=== PATIENT | female | born 1990 | race Caucasian/White ===

== ENCOUNTER 2023-10-31 09:30 | Inpatient (IN) | payer MEDICAID, SELFPAY ==
[2023-10-27] MEDS: Cefazolin 2 GM in 0.9% Normal Saline (100mL Bag) 100 ML IV (12:07)
--- NOTE | 2023-10-29 13:31 | PCM.HP.BLA ---
History and Physical Date of Admission: 10/31/23 Pre-Op History and Physical ? HPI: The patient is a 33 year old female presenting for pre-operative visit. She is scheduled for , for repeat cs on 10/31/23. Procedure discussed along with risks, benefits and complications. Other alternatives discussed for management. Consent form signed? Yes. ? ? PAST MEDICAL HISTORY PAST MEDICAL HISTORY Diagnosis Date ? Abnormal glandular Papanicolaou smear of cervix 2018 ? Anemia ? ? Chlamydia ? ? 2015 ? Depression/anxiety ? ? Fibrocystic breast ? ? H/O seasonal allergies ? ? History of anomaly in prior , currently 03/26/2023 ? Kidney cyst, acquired 03/05/2021 ? ? PAST SURGICAL HISTORY PAST SURGICAL HISTORY Procedure Laterality Date ? DELIVERY ONLY ? ? ? PAST SURGICAL HISTORY OF ? ? ? wisdom teeth ? ? ? CURRENT MEDICATIONS Current Outpatient Medications Medication Sig Dispense Refill ? pantoprazole DR (PROTONIX) 20 mg tablet Take 1 tablet by mouth once daily. 30 tablet 1 ? ondansetron orally disintegrating (ZOFRAN ODT) 4 mg disintegrating tablet Take 1 tablet by mouth every 8 hours as needed. 90 tablet 1 ? PNV [id number] 3.33 mg iron- 0.33 mg chew Take by mouth. ? ? ? cetirizine (ZYRTEC) 10 mg tablet Take 1 tablet by mouth once daily. ? ? ? fluticasone (FLONASE) 50 mcg/actuation nasal spray Use 2 Sprays in the nose. ? ? ? No current facility-administered medications for this visit. ? ? ALLERGIES: Patient has no known allergies. ? PERSONAL HISTORY: SOCIAL HISTORY Social History ? Tobacco Use ? Smoking status: Former ? ? Years: 10 ? ? Types: Cigarettes ? ? Quit date: 04/15/2018 ? ? Years since quittin.5 ? Smokeless tobacco: Never Vaping Use ? Vaping Use: Former ? Quit date: 08/14/2020 ? Substances: Nicotine Substance Use Topics ? Alcohol use: Not Currently ? ? Comment: rarely-none since 2019 ? Drug use: Never ? FAMILY HISTORY: FAMILY HISTORY FAMILY HISTORY Problem Relation Age of Onset ? No Known Problems Mother ? ? No Known Problems Father ? ? Kidney Disease Maternal Grandmother ? ? COPD Maternal Grandfather ? ? Hyperlipidemia Paternal Grandmother ? ? Hypertension Paternal Grandmother ? ? Hypertension Paternal Grandfather ? ? Hyperlipidemia Paternal Grandfather ? ? Alzheimer's Disease Paternal Grandfather ? ? Kidney Disease Daughter ? ? ? REVIEW OF SYMPTOMS: negative except as noted above PHYSICAL EXAMINATION: ? VITALS: Blood pressure 110/60, weight 183 lb (83 kg), last menstrual period 01/25/2023. ? GENERAL: The patient is well nourished, well hydrated in no acute distress. , The patient is oriented to time, place, and person. NECK: full range of motion Abd: gravid, non tender ? IMPRESSION: @ 39 weeks, repeat cs ? PLAN: Repeat cs ? Pt has been counseled on risks/benefits and alternatives of surgery including but not limited to anesthesia, bleeding, infection, injury to pelvic structures including bowel, bladder, ureters and vessels. Pt wishes to proceed with surgery at this time. Risk of transfusion reviewed ? Pre and post op instructions reviewed. ? I have reviewed and updated past medical and surgical history, medications and allergies Karishma Collins MD ?1:28 PM Routine Office Visit on 10/29/2023 Routine Office Visit on 10/29/2023 Note shared with patient
[2023-10-31] VITALS (18 sets, daily range): BP systolic 106–136; BP diastolic 73–96; PULSE 72–106; RESP 15–22; TEMP 36–36.7; O2SAT 95–99; BMI 28.0
--- OUTSIDE RECORDS SUMMARY | 2023-10-31 10:04 | XMS RPT_ITS | CCD ---
Author Name Unknown Address [id number] [place] [address] Organization [facility] Care Team Providers Care Md Urologist Name Role Phone Marylin Thompson Primary Care Provider [phone] Unavailable Primary Care Provider Unavailabl e Inc, [facility] Primary Care Provider Unav ailable Unavailable Primary Care Provider Unavailabl e LINNETTE DICKSON Attending Unavailable [facility], [facility] Primary [facility] Unavailable YONATAN SPARKS Attending Unavailable [facility] Primary Care Unavailable SAFLAUREN YONATAN Referring Unavailable [facility] Primary Care Unavailable SAFFELISET YONATAN Attending Unavailable [facility] Primary Care Unavailable LINNETTE DICKSON Attending Unavailable [facility] Primary Care Unavailable SAFYONATAN AGUILAR Attending Unavailable [facility] Primary Care Unavailable SAFFELISET YONATAN Attending Unavailable SERENA DICKSONA Attending Unavailable [facility] Primary Care Unavailable SHARON MCCORMICK Attending Unavailable PAGE RILEYRE Referring Unavail able FANNY REYNOLDS Referring Unavailable KARISHMA RILEY Attending Unavail able FANNY REYNOLDS Referring Unavailable WISWELL, SHELLEY Referring Unavailable WISWELL, SHELLEY Attending Unavailable WISWELL, SHELLEY Attending Unavailable PAGE RILEYRE Attending Unavail able FANNY REYNOLDS Attending Unavailable BISI MCGOWAN Attending Unavailable BISI MCGOWAN Referring Unavailable WISWELL, SHELLEY Attending Unavailable WISWELL, SHELLEY Referring Unavailable WISWELL, SHELLEY Referring Unavailable FANNY REYNOLDS Attending Unavailable SHARON MCCORMICK Attending Unavailable WISWELL, SHELLEY Attending Unavailable WISWELL, SHELLEY Referring Unavailable WISWELL, SHELLEY Referring Unavailable WISWELL, SHELLEY Referring Unavailable AZAM BUENO Attending Unavailable PAGE RILEYRE Attending Unavail able KIERAN RUCKER Attending Unavailable SHARON MCCORMICK Referring Unavailable FANNY REYNOLDS Attending Unavailable AZAM BUENO Attending Unavailable Medications Current Medications Medication Drug Class(es) Dates Sig (Normalized) Sig (Original) acetaminophen 325 mg oral tablet (1 source) Start: 04-11-2021 take 650 mg by mouth every six hours as needed for pain, then take 4000 mg by mouth every twenty-four hours as needed for pain 650 mg, Oral, EVERY 6 HOURS PRN, Pain Mild (1-3), Starting on Fri04/11/21 at 1512 Maximum dose of acetaminophen is 4000 mg from all sources in 24 hours. azelastine hydrochloride 0.5 mg/ml ophthalmic solution (2 sources) Histamine-1 Receptor Antagonist Start: 10-13-2017 take 1 drop(s) into the eye(s) twice daily azelastine (OPTIVAR) 0.05 % ophthalmic solution Place 1 drop into both eyes 2 times daily 1 Bottle 2 10/13/2017 Active 1 ml diphenhydrAMINE hydrochloride 50 mg/ml cartridge (4 sources) Histamine-1 Receptor Antagonist Start: 04-11-2021 25 mg, Intravenous, EVERY 6 HOURS PRN, Itching, Hives, Starting on Fri04/11/21 at 1512, Completed/Discontinued Medications Medication Drug Class(es) Dates Sig (Normalized) Sig (Original) acetaminophen 500 mg / diphenhydrAMINE hydrochloride 25 mg oral tablet (1 source) Histamine-1 Receptor Antagonist End: 04-13-2021 take 25-500 mg by mouth once daily as needed diphenhydrAMINE-AP AP, sleep, (TYLENOL PM EXTRA STRENGTH) 25-500 MG tablet Take 1 tablet by mouth nightly as needed for Sleep 0 04/13/2021 Discontinued (Stop Taking at Discharge) azithromycin (ZITHROMAX) 500 mg in dextrose 5 % 250 mL IVPB (add-vantage) (1 source) Start: 04-11-2021 End: 04-11-2021 azithromycin (ZITHROMAX) 500 mg in dextrose 5 % 250 mL IVPB (add-vantage) b complex vitamins capsule (2 sources) End: 03-26-2023 take 1 capsule by mouth once daily b complex vitamins capsule Take 1 capsule by mouth daily. 0 03/26/2023 Discontinued Problems Active Problems Problem Classification Problem Date Documented Da te Episodic/Chronic Anxiety disorders (2 sources) Anxiety disorder, unspecified; Translations: [Anxiety disorder, unspecified] Onset: 04-10-2023 Chronic Early or threatened labor (2 sources) Threatened premature labor - not delivered ; Translations: [False labor before 37 completed weeks of gestation, unspecified trimester] Onset: 04-11-2021 Resolved: 04-13-2021 Episodic Mood disorders (2 sources) Mood disorders; Translations: [Depression, unspecified] Onset: 04-10-2023 Other complications of (20 sources) ; Translations: [ with inconclusive viability, not applicable or unspecified] Onset: 04-28-2023 02-27-2023 Episodic Other complications of (15 sources) High risk ; Translations: [Supervision of high risk , unspecified, first trimester] Onset: 04-10-2023 03-26-2023 Episodic Other complications of (1 source) Nausea and vomiting; Translations: [Vomiting of , unspecified] 04-10-2023 Episodic Other complications of (1 source) Anxiety in ; Translations: [Other mental disorders complicating , unspecified trimester] 04-10-2023 Episodic Other complications of (1 source) Depressive disorder; Translations: [Other mental disorders complicating , first trimester] 04-10-2023 Episodic Other complications of (2 sources) Vomiting of , unspecified; Translations: [Vomiting of , unspecified] Onset: 04-10-2023 Episodic Other complications of (2 sources) Other mental disorders complicating , unspecified trimester; Translations: [Other mental disorders complicating , unspecified trimester] Onset: 04-10-2023 Episodic Other complications of (2 sources) Other mental disorders complicating , first trimester; Translations: [Other mental disorders complicating , first trimester] Onset: 04-10-2023 Episodic Other complications of (2 sources) Supervision of high risk , unspecified, first trimester; Translations: [Supervision of high risk , unspecified, first trimester] Onset: 04-10-2023 Episodic Other complications of (2 sources) with inconclusive viability, not applicable or unspecified; Translations: [ with inconclusive viability, not applicable or unspecified] Onset: 03-26-2023 Episodic Other complications of (4 sources) Poor growth affecting management; Translations: [Maternal care for other known or suspected poor growth, third trimester, not applicable or unspecified] Onset: 09-11-2023 09-11-2023 Episodic Other complications of (1 source) Supervision of high risk , unspecified, third trimester; Translations: [Supervision of high risk in third trimester] Onset: 09-29-2023 Episodic Other complications of (1 source) Maternal care for other known or suspected poor growth, third trimester, not applicable or unspecified; Translations: [Poor growth affecting management of mother in third trimester, single or unspecified fetus] Onset: 09-11-2023 Episodic Other complications of (1 source) Maternal care for other known or suspected poor growth, unspecified trimester, not applicable or unspecified; Translations: [ affected by intrauterine growth restriction (IUGR)] Onset: 09-23-2023 Episodic Other complications of (1 source) Supervision of high risk , unspecified, unspecified trimester; Translations: [Supervision provided for high risk with history of previous delivery] Onset: 09-23-2023 Episodic Other complications of (1 source) Supervision of high risk , unspecified, second trimester; Translations: [Supervision of high risk in second trimester] Onset: 08-12-2023 Episodic Other female genital disorders (2 sources) H/O: premature delivery; Translations: [Personal history of pre-term labor] 04-30-2023 Episodic Other female genital disorders (1 source) Personal history of pre-term labor; Translations: [History of delivery] Onset: 09-11-2023 Episodic Other screening for suspected conditions (not mental disorders or infectious disease) (1 source) Finding related to ; Translations: [Encounter for suspected problem with growth ruled out] 10-27-2023 Episodic Other upper respiratory disease (14 sources) Seasonal allergy; Translations: [Other seasonal allergic rhinitis] Onset: 10-16-2016 10-16-2016 Chronic Residual codes; unclassified (1 source) Gestation period, 8 weeks; Translations: [8 weeks gestation of ] 03-26-2023 Episodic Residual codes; unclassified (3 sources) Gestation period, 10 weeks; Translations: [10 weeks gestation of ] Onset: 04-10-2023 04-10-2023 Episodic Residual codes; unclassified (1 source) Gestation period, 13 weeks; Translations: [13 weeks gestation of ] 04-30-2023 Episodic Residual codes; unclassified (3 sources) History of uterine scar from previous surgery; Translations: [History of uterine scar from previous surgery] Onset: 03-26-2023 Episodic Residual codes; unclassified (1 source) 10 weeks gestation of ; Translations: [10 weeks gestation of ] Onset: 04-10-2023 Episodic Residual codes; unclassified (1 source) Gestation period, 17 weeks; Translations: [17 weeks gestation of ] 05-28-2023 Episodic Residual codes; unclassified (1 source) Gestation period, 22 weeks; Translations: [22 weeks gestation of ] 07-01-2023 Episodic Residual codes; unclassified (1 source) Gestation period, 26 weeks; Translations: [26 weeks gestation of ] 07-29-2023 Episodic Residual codes; unclassified (1 source) Gestation period, 30 weeks; Translations: [30 weeks gestation of ] 08-28-2023 Episodic Residual codes; unclassified (1 source) Gestation period, 38 weeks; Translations: [38 weeks gestation of ] 10-20-2023 Episodic Residual codes; unclassified (2 sources) Gestation period, 39 weeks; Translations: [39 weeks gestation of ] 10-27-2023 Episodic Residual codes; unclassified (1 source) 32 weeks gestation of ; Translations: [32 weeks gestation of ] Onset: 09-29-2023 Episodic Residual codes; unclassified (1 source) 34 weeks gestation of ; Translations: [34 weeks gestation of ] Onset: 09-23-2023 Episodic Residual codes; unclassified (1 source) 22 weeks gestation of ; Translations: [22 weeks gestation of ] Onset: 09-11-2023 Episodic Residual codes; unclassified (1 source) 26 weeks gestation of ; Translations: [26 weeks gestation of ] Onset: 08-12-2023 Episodic Past or Other Problems Problem Classification Problem Date Documented Da te Episodic/Chronic Other complications of ; puerperium affecting management of mother (11 sources) Suspected disorder; Translations: [Maternal care for (suspected) abnormality and damage, unspecified, not applicable or unspecified] Onset: 02-01-2021 Resolved: 03-26-2023 03-26-2023 Episodic Other complications of (20 sources) Supervision of with other poor reproductive or obstetric history, unspecified trimester; Translations: [ with other poor obstetric history] Onset: 03-26-2023 02-27-2023 Episodic Other complications of (1 source) Supervision of with history of pre-term labor, second trimester; Translations: [Previous delivery in second trimester, antepartum] Onset: 07-01-2023 Episodic Other diseases of kidney and ureters (18 sources) Acquired renal cystic disease; Translations: [Cyst of kidney, acquired] Onset: 03-05-2021 04-28-2023 Episodic Other and delivery including normal (3 sources) Normal ; Translations: [Encounter for supervision of other normal , unspecified trimester] Onset: 06-10-2023 04-30-2023 Episodic Screening and history of mental health and substance abuse codes (19 sources) H/O: depression; Translations: [Personal history of other mental and behavioral disorders] Onset: 04-28-2023 04-28-2023 Episodic Results Test Name Value Interpretation Reference Range Facil ity Vital Signs Date Time Vital Sign Value Performing Clinician Facility 10-29-2023 11:42-0500 Body weight 83.01 kg Karishma Tompkins MD Work Phone: [facility] 10-29-2023 11:42-0500 Diastolic blood pressure 60 mm[Hg] Karishma Tompkins MD Work Phone: [facility] 10-29-2023 11:42-0500 Systolic blood pressure 110 mm[Hg] Karishma Tompkins MD Work Phone: [facility] 10-20-2023 10:52-0500 Body weight 82.56 kg Shelley Akhtar MD Work Phone: [facility] 10-20-2023 10:52-0500 Diastolic blood pressure 81 mm[Hg] Shelley Akhtar MD Work Phone: [facility] 10-20-2023 10:52-0500 Systolic blood pressure 115 mm[Hg] Shelley Akhtar MD Work Phone: [facility] 08-28-2023 10:33-0500 Body weight 81.56 kg Sharon Plotts DROP MACHINE OPERATOR.CNM Work Phone: [facility] 08-28-2023 10:33-0500 Diastolic blood pressure 68 mm[Hg] Sharon Plotts DROP MACHINE OPERATOR.CNM Work Phone: [facility] 08-28-2023 10:33-0500 Systolic blood pressure 116 mm[Hg] Sharon Plotts DROP MACHINE OPERATOR.CNM Work Phone: [facility] 07-29-2023 13:04-0500 Body weight 78.02 kg Bisi Mcgowan DROP MACHINE OPERATOR.CNM Work Phone: [facility] 07-29-2023 13:04-0500 Diastolic blood pressure 72 mm[Hg] Bisi Mcgowan DROP MACHINE OPERATOR.CNM Work Phone: [facility] 07-29-2023 13:04-0500 Systolic blood pressure 120 mm[Hg] Bisi Mcgowan DROP MACHINE OPERATOR.CNM Work Phone: [facility] 05-28-2023 14:13-0400 Body weight 73.03 kg Karishma Tompkins MD Work Phone: [facility] 05-28-2023 14:13-0400 Diastolic blood pressure 60 mm[Hg] Karishma Tompkins MD Work Phone: [facility] 05-28-2023 14:13-0400 Systolic blood pressure 100 mm[Hg] Karishma Tompkins MD Work Phone: [facility] 04-30-2023 13:13-0400 Body height 172.7 cm Sharon Jessicahuma DROP MACHINE OPERATOR.CNM Work Phone: [facility] 04-30-2023 13:13-0400 Body weight 71.22 kg Sharon Jessicahuma DROP MACHINE OPERATOR.CNM Work Phone: [facility] 04-30-2023 13:13-0400 Diastolic blood pressure 72 mm[Hg] Sharon Mccormick DROP MACHINE OPERATOR.CNM Work Phone: [facility] 04-30-2023 13:13-0400 Systolic blood pressure 106 mm[Hg] Sharon Mccormick DROP MACHINE OPERATOR.CNM Work Phone: [facility] 04-10-2023 09:09-0400 Body mass index (BMI) [Ratio] 24.48 kg/m2 Linnette Newport PA Work Phone: [facility] [employer] 04-10-2023 09:09-0400 Body weight 73.03 kg Linnette Newport PA Work Phone: [facility] 04-10-2023 09:09-0400 Diastolic blood pressure 79 mm[Hg] Linnette Newport PA Work Phone: [facility] 04-10-2023 09:09-0400 Heart rate 104 /min Linnette Newport PA Work Phone: [facility] 04-10-2023 09:09-0400 Systolic blood pressure 125 mm[Hg] Linnette Newport PA Work Phone: [facility] [employer] 03-26-2023 15:10-0400 Body mass index (BMI) [Ratio] 24.54 kg/m2 Yonatan Saffell DROP MACHINE OPERATOR - SENIOR [employer]IS[employer] NETWORK ENGINEER Work Phone: [facility] [employer] 03-26-2023 15:10-0400 Body temperature 97.11 [degF] Yonatan Saffell DROP MACHINE OPERATOR - SENIOR [employer]IS[employer] NETWORK ENGINEER Work Phone: [facility] [employer] 03-26-2023 15:10-0400 Body weight 73.21 kg Yonatan Saffell DROP MACHINE OPERATOR - SENIOR [employer]IS[employer] NETWORK ENGINEER Work Phone: [facility] [employer] 03-26-2023 15:10-0400 Diastolic blood pressure 79 mm[Hg] Yonatan Saffell DROP MACHINE OPERATOR - SENIOR [employer]IS[employer] NETWORK ENGINEER Work Phone: [facility] [employer] 03-26-2023 15:10-0400 Heart rate 84 /min Yonatan Saffell DROP MACHINE OPERATOR - SENIOR [employer]IS[employer] NETWORK ENGINEER Work Phone: [facility] [employer] 03-26-2023 15:10-0400 Systolic blood pressure 115 mm[Hg] Yonatan Sparks DROP MACHINE OPERATOR - SENIOR CISCO NETWORK ENGINEER Work Phone: [employer] 02-27-2023 12:06-0400 Body mass index (BMI) [Ratio] 25.24 kg/m2 Yonatanngoc Sparks DROP MACHINE OPERATOR - SENIOR CISCO NETWORK ENGINEER Work Phone: [employer] 02-27-2023 12:06-0400 Body weight 75.3 kg Yonatan Sparks DROP MACHINE OPERATOR - SENIOR CISCO NETWORK ENGINEER Work Phone: [employer] 02-27-2023 12:06-0400 Diastolic blood pressure 66 mm[Hg] Yonatan Sparks DROP MACHINE OPERATOR - SENIOR CISCO NETWORK ENGINEER Work Phone: [employer] 02-27-2023 12:06-0400 Heart rate 83 /min Yonatan Sparks DROP MACHINE OPERATOR - SENIOR CISCO NETWORK ENGINEER Work Phone: [employer] 02-27-2023 12:06-0400 Systolic blood pressure 115 mm[Hg] Yonatan Sparks DROP MACHINE OPERATOR - SENIOR CISCO NETWORK ENGINEER Work Phone: [facility] [employer] 04-13-2021 08:03-0400 Body temperature 97.5 [degF] Magalis Briggs MD Work Phone: [facility] Work Phone: 04-13-2021 08:03-0400 Diastolic blood pressure 81 mm[Hg] Magalis Briggs MD Work Phone: [facility] Work Phone: 04-13-2021 08:03-0400 Heart rate 89 /min Magalis Briggs MD Work Phone: [facility] Work Phone: 04-13-2021 08:03-0400 Respiratory rate 16 /min Magalis Briggs MD Work Phone: [facility] Work Phone: 04-13-2021 08:03-0400 SaO2% (BldA) [Mass fraction] 98 % Magalis Briggs MD Work Phone: [facility] Work Phone: 04-13-2021 08:03-0400 Systolic blood pressure 125 mm[Hg] Magalis Briggs MD Work Phone: [facility] Work Phone: 04-10-2021 23:51-0400 Body height 172.7 cm Magalis Briggs MD Work Phone: [facility] Work Phone: 04-10-2021 23:51-0400 Body mass index (BMI) [Ratio] 29.04 kg/m2 Magalis Briggs MD Work Phone: [facility] Work Phone: 04-10-2021 23:51-0400 Body weight 86.64 kg Magalis Briggs MD Work Phone: [facility] Work Phone: 03-28-2021 22:01-0400 Diastolic blood pressure 89 mm[Hg] Maura Massey MD Work Phone: [facility] Work Phone: 03-28-2021 22:01-0400 Heart rate 67 /min Maura Massey MD Work Phone: [facility] Work Phone: 03-28-2021 22:01-0400 Respiratory rate 16 /min Maura Massey MD Work Phone: [facility] Work Phone: 03-28-2021 22:01-0400 Systolic blood pressure 133 mm[Hg] Maura Massey MD Work Phone: [facility] Work Phone: 03-28-2021 21:06-0400 Body height 172.7 cm Maura Massey MD Work Phone: [facility] Work Phone: 03-28-2021 21:06-0400 Body mass index (BMI) [Ratio] 28.59 kg/m2 Maura Massey MD Work Phone: [facility] Work Phone: 03-28-2021 21:06-0400 Body weight 85.28 kg Maura Massey MD Work Phone: [facility] Work Phone: 0 21:02-0400 Body temperature 97.81 [degF] Maura Massey MD Work Phone: [facility] Work Phone: Encounters Encounter Date Encounter Type Care Provider Facility Start: 10-29-2023 End: 10-29-2023 ambulatory KARISHMA TOMPKINS Facility:[facility] Start: 10-29-2023 End: 10-29-2023 Patient encounter procedure Karishma Tompkins MD Work Phone: OB/Gynecology Procedures Date Procedure Procedure Detail Performing Clinician Start: 10-29-2023 URINE OB DIP B/O Karishma Tompkins MD Work Phone: Start: 10-27-2023 biophysical profile non-stress testing Shelley Akhtar MD Work Phone: Start: 10-20-2023 URINE OB DIP B/O Shelley Akhtar MD Work Phone: Start: 08-28-2023 URINE OB DIP B/O Sharon Mccormick DROP MACHINE OPERATOR.CNM Work Phone: Start: 07-29-2023 URINE OB DIP B/O Bisi Mcgowan DROP MACHINE OPERATOR.CNM Work Phone: Start: 07-01-2023 Us preg uterus after 1st trimest 09/15 gestation Fanny Reynolds MD Work Phone: Start: 05-28-2023 URINE OB DIP B/O Karishma Tompkins MD Work Phone: Start: 04-10-2023 Antibody screen Nurse Wstr Work Phone: Start: 04-10-2023 CBC panel - Blood by Automated count [facility] Provider Start: 04-10-2023 GONORRHEA/CHLAMYDIA NAAT [facility] Provider Start: 04-10-2023 HEP ACUTE PANEL BL [facility] Provider Start: 04-10-2023 HEP B SURF AG SCRN [facility] Provider Start: 04-10-2023 HIV COMBO (AC) [facility] Provider Start: 04-10-2023 RPR SCREEN [facility] Provider Start: 04-10-2023 TYPE + SCREEN (EXTERNAL LAB) [facility] Provider Start: 04-10-2023 Antibody screen rbc each serum technique Linnette CHAPARRO Work Phone: Start: 04-10-2023 Hemoglobin fractj/quantj electrophoresis Linnette CHAPARRO Work Phone: Start: 04-10-2023 Iaad ia hepatitis b surface antigen Linnette CHAPARRO Work Phone: Start: 04-10-2023 MISCELLANEOUS SENDOUT TEST Linnette CHAPARRO Work Phone: Start: 04-10-2023 Urnls dip stick/tablet rgnt non-auto w/o micrscp Linnette CHAPARRO Work Phone: Start: 03-26-2023 H/O: section History of delivery Yonatan Sparks DROP MACHINE OPERATOR - SENIOR [employer]IS[employer] NETWORK ENGINEER Work Phone: Start: 03-03-2023 Gonadotropin chorionic quantitative Yonatan Saffell DROP MACHINE OPERATOR - SENIOR [employer]IS[employer] NETWORK ENGINEER Work Phone: Start: 02-27-2023 Gonadotropin chorionic quantitative Yonatan Saffell DROP MACHINE OPERATOR - SENIOR [employer]IS[employer] NETWORK ENGINEER Work Phone: Start: 12-12-2021 Microscopic observation [Identifier] in Cervix by Cyto stain Yonatan Saffell DROP MACHINE OPERATOR - SENIOR [employer]IS[employer] NETWORK ENGINEER Work Phone: Start: 04-12-2021 Blood count hemoglobin Linnette T Merlyn DO Work Phone: Start: 04-11-2021 RADIOLOGY REPORT 3m Scanning Start: 04-11-2021 Us preg uterus after 1st trimest 09/15 gestation Harpreet Marinelli DO Work Phone: Start: 04-11-2021 Antibody screen Magalis Briggs MD Work Phone: Start: 04-11-2021 Culture bacterial quanttative colony count urine Jill Multani DO Work Phone: Start: 04-11-2021 Blood count complete automated Jill Multani DO Work Phone: Start: 04-11-2021 Blood typing serologic abo Jill coyne DO Work Phone: Start: 11-08-2020 ABO, EXTERNAL RESULT Historical Provider Start: 11-08-2020 HEPATITIS B, EXTERNAL RESULT Historical Provider Start: 11-08-2020 RH FACTOR, EXTERNAL RESULT Historical Pr ovider Start: 11-08-2020 RPR, EXTERNAL RESULT Historical Provider Start: 11-08-2020 RUBELLA TITER, EXTERNAL RESULT Historical Provider Start: 10-11-2020 C. TRACHOMATIS, EXTERNAL RESULT Historical Provider Start: 10-11-2020 HIV, EXTERNAL RESULT Historical Provider Start: 10-11-2020 N. GONORRHOEAE, EXTERNAL RESULT Historical Provider Start: 03-14-2020 Glucose quantitative blood xcpt reagent strip Unknown Provider Result H/O: section Status post C-secti on Magalis Briggs MD Work Phone: H/O: section History of delivery Linnette CHAPARRO Work Phone: H/O: section History of section Shelley Akhtar MD Work Phone: Plan of Treatment Date Care Activity Detail Author Start: 2042 Zoster Vaccines (1 of 2) Zoster Vaccines (1 of 2) [facility] [employer] Start: 08-12-2033 Urine microalbumin profile DTaP,Tdap,Td Vaccine (3 - Td or Tdap) [facility] Start: 04-13-2031 DTaP/Tdap/Td vaccine (2 - Td or Tdap) DTaP/Tdap/Td vaccine (2 - Td or Tdap) [facility] Work Phone: Start: 04-13-2031 DTaP/Tdap/Td Vaccines (2 - Td or Tdap) DTaP/Tdap/Td Vaccines (2 - Td or Tdap) [facility] [employer] Start: 04-13-2031 Urine microalbumin profile DTaP,Tdap,Td Vaccine (2 - Td or Tdap) [facility] Start: 12-12-2024 Screening for malignant neoplasm of cervix [facility] Start: 09-15-2023 Depression Assessment Depression Assessment [facility] Start: 07-29-2023 End: 10-28-2023 CBC W Auto Differential panel - Blood CBC + DIFF Lab Routine 26 weeks gestation of Supervision of high risk in second trimester Expected: 07/29/2023, Expires: 10/28/2023 [facility] Work Phone: Immunizations Immunization Date Immunization Notes Care Provider Fa cility 10-02-2023 respiratory syncytia l virus (RSV) vaccine, bivalent (ABRYSVO) Karishma Tompkins MD Work Phone: [facility] 08-12-2023 tetanus toxoid, reduced diphtheria toxoid, and acellular pertussis vaccine, adsorbed [employer]rier Shop Supervisor RN [facility] 08-03-2022 Influenza, injectable, Madin Angela Canine Kidney, preservative free, quadrivalent Karishma Tompkins MD Work Phone: [facility] Work Phone: 08-03-2022 influenza virus vaccine, unspecified formulation Yonatanngoc Hoffmannlauren BUCK [facility] Work Phone: [facility] 04-13-2021 tetanus toxoid, reduced diphtheria toxoid, and acellular pertussis vaccine, adsorbed Magalis Briggs MD Work Phone: [facility] NEGATED: Highlighted row has not occurred!04-13-2021 measles, mumps and rubella virus vaccine Magalis Briggs MD Work Phone: [facility] Work Phone: Payers Date Payer Category Payer Unknown [employer] [id number] 2023-Present [address] [place] [address] Exchange Plan [id number] 2021 Medicaid [id number] 2021 Medicaid [id number] 2016 Medicaid [employer] [place] [employer] [place] xxxxxxxxxxx 2016-Present [phone] [address] [place] [address] xxxxxxxxxxx [id number] 2016 Medicaid [employer] [place] [employer] [place] [id number] 2016-Present [phone] [address] [place] [address] [id number] Social History Date Type Detail Facility Start: 11-11-2016 End: 04-28-2023 Tobacco smoking status NHIS Former smoker [place], [place] End: 08-28-2020 History of tobacco use Current [place]oker [place] Start: 11-11-2016 Alcohol intake Current non-dr assistant to the director of alcohol (finding) [place], [place] Start: 1990 Sex Assigned At Not on file M [place] Start: 03-28-2021 End: 04-28-2023 Tobacco use and exposure Never used [facility] Start: 03-28-2021 End: 10-14-2023 Alcohol intake Ex-drinker (finding) [employer] Work Phone: Start: 08-25-2020 [employer] Work Phone: Start: 02-17-2023 End: 04-10-2023 Exposure to SARS-CoV-2 (event) Not sure [employer] Start: 04-11-2021 Alcohol intake Lifetime non-d mu (finding) [employer] Work Phone: Start: 04-11-2021 History SDOH Alcohol Frequency 1 [employer] Work Phone: End: 08-28-2020 History of tobacco use Cigarette Smoker [facility] Start: 02-27-2023 End: 10-14-2023 History of Social function [facility] Start: 02-27-2023 End: 10-14-2023 Tobacco use panel [facility] Start: 04-28-2023 Education 13 [facility] Start: 04-28-2023 Alcohol Comment rarely-none since [facility] Goals Date Patient Goal Desired Activity /State Personal health goal Clinical Notes 10-14-2020 to 10-29-2023 Karishma Riley MD - 10/29/2023 1:26 PM ESTPrenatal Quick Notes - Karishma Riley MD - 10/29/2023 1:25 PM ESTPatient InstructionsPatient InstructionsPatient Instructions Note Date & Type Note Facility 10-29-2023 History and physical note Pre-Op History and Physical HPI: The patient is a 33 year old female presenting for pre-operative visit. She is scheduled for , for repeat cs on 10/31/23. Procedure discussed along with risks, benefits and complications. Other alternatives discussed for management. Consent form signed? Yes. PAST MEDICAL HISTORY Diagnosis Date Abnormal glandular Papanicolaou smear of cervix 2019 Anemia Chlamydia 2015 Depression/anxiety Fibrocystic breast H/O seasonal allergies History of anomaly in prior , currently 03/26/2023 Kidney cyst, acquired 03/05/2021 PAST SURGICAL HISTORY Procedure Laterality Date DELIVERY ONLY PAST SURGICAL HISTORY OF wisdom teeth Current Outpatient Medications Medication Sig Dispense Refill pantoprazole DR (PROTONIX) 20 mg tablet Take 1 tablet by mouth once daily. 30 tablet 1 ondansetron orally disintegrating (ZOFRAN ODT) 4 mg disintegrating tablet Take 1 tablet by mouth every 8 hours as needed. 90 tablet 1 PNV [id number]-TV-[id number]-2x-odb-epa 3.33 mg iron- 0.33 mg chew Take by mouth. cetirizine (ZYRTEC) 10 mg tablet Take 1 tablet by mouth once daily. fluticasone (FLONASE) 50 mcg/actuation nasal spray Use 2 Sprays in the nose. No current facility-administered medications for this visit. ALLERGIES: Patient has no known allergies. PERSONAL HISTORY: Social History Tobacco Use Smoking status: Former Years: 10 Types: Cigarettes Quit date: 04/15/2018 Years since quittin.5 Smokeless tobacco: Never Vaping Use Vaping Use: Former Quit date: 08/14/2020 Substances: Nicotine Substance Use Topics Alcohol use: Not Currently Comment: rarely-none since 2019 Drug use: Never FAMILY HISTORY: FAMILY HISTORY Problem Relation Age of Onset No Known Problems Mother No Known Problems Father Kidney Disease Maternal Grandmother COPD Maternal Grandfather Hyperlipidemia Paternal Grandmother Hypertension Paternal Grandmother Hypertension Paternal Grandfather Hyperlipidemia Paternal Grandfather Alzheimer's Disease Paternal Grandfather Kidney Disease Daughter REVIEW OF SYMPTOMS: negative except as noted above PHYSICAL EXAMINATION: VITALS: Blood pressure 110/60, weight 183 lb (83 kg), last menstrual period 01/25/2023. GENERAL: The patient is well nourished, well hydrated in no acute distress. , The patient is oriented to time, place, and person. NECK: full range of motion Abd: gravid, non tender IMPRESSION: @ 39 weeks, repeat cs PLAN: Repeat cs Pt has been counseled on risks/benefits and alternatives of surgery including but not limited to anesthesia, bleeding, infection, injury to pelvic structures including bowel, bladder, ureters and vessels. Pt wishes to proceed with surgery at this time. Risk of transfusion reviewed Pre and post op instructions reviewed. I have reviewed and updated past medical and surgical history, medications and allergies Karishma Tompkins MD documented in this encounter [facility] 10-29-2023 Miscellaneous Notes DM-Pt doing well. Denies vaginal Bleeding, Leaking fluid, or regular Contractions. Pt reports good movement Physical Exam: Gen: female in no apparent distress Abd: soft, Gravid. Non tender to palpation. See flow sheet A/P: @ 39.4 weeks 1) Cs pre op done today 2) Kick counts reviewed Karishma Mina MD documented in this encounter [facility] 10-29-2023 Instructions Marcy Morgan Ma 10/29/2023 11:43 AM EST SEQUENTIAL SCREENINGS The [facility] offers sequential screenings for women who are interested in screenings for chromosomal abnormalities and certain defects during a . The sequential screen combines ultrasound and blood tests to determine the risk of chromosomal abnormalities, including Down's Syndrome (Trisomy 21) and Trisomy 18, as well as open neural tube defects including spina bifida. Ultrasound examination is performed between 11 weeks and 13 weeks gestational age. Blood tests are drawn after the ultrasound and again later in the between 15 and 21 weeks gestational age. Please let your physician know if you are interested in this testing. It will require an appointment with our marine technician. This is not an ultrasound performed by a physician in our office during a routine visit. SIGNS AND SYMPTOMS OF LABOR 1. Contractions every 10 minutes or more often 2. Clear, pink, or brownish fluid (water) leaking from vagina 3. Feeling that baby is pushing down, pressure 4. Low, dull backache 5. Cramps that feel like a period 6. Cramps with or without diarrhea If you notice any of the above symptoms, contact our office at [phone] and ask to speak with a nurse. After hours, you can call doctors registry at [phone] OR call [facility] at [phone] and ask to have the doctor security professionals paged. If you consider this an emergency, dial 3-0-4 or go to your nearest emergency department. NEED HELP? Are you dealing with a violent or abusive relationship? Are you a victim of rape or sexual assult? Call [facility] ([place]) 24 hour Crisis Hotline: 283.291.6222 or 442-109-9154. MANUAL Your Guide to a Healthy manual is now on-line. Visit [email or web address] to download your free copy documented in this encounter [facility] 10-24-2023 Miscellaneous Notes SW- Pt doing well. No ctx, vb, lof. Good FM PE: Gen- NAD, well appearing Abd- Soft, gravid, NT See flowsheet A/p 38 wk gestation - MOD: Plans TOLAC if spont labor - SGA previously but now growth AGA. Has follow up growth scheduled for next week Shelley Akhtar DO documented in this encounter [facility] 10-20-2023 Instructions Eddie Boyd Marcy - 10/20/2023 10:49 AM EST SEQUENTIAL SCREENINGS The [facility] offers sequential screenings for women who are interested in screenings for chromosomal abnormalities and certain defects during a . The sequential screen combines ultrasound and blood tests to determine the risk of chromosomal abnormalities, including Down's Syndrome (Trisomy 21) and Trisomy 18, as well as open neural tube defects including spina bifida. Ultrasound examination is performed between 11 weeks and 13 weeks gestational age. Blood tests are drawn after the ultrasound and again later in the between 15 and 21 weeks gestational age. Please let your physician know if you are interested in this testing. It will require an appointment with our marine technician. This is not an ultrasound performed by a physician in our office during a routine visit. SIGNS AND SYMPTOMS OF LABOR 1. Contractions every 10 minutes or more often 2. Clear, pink, or brownish fluid (water) leaking from vagina 3. Feeling that baby is pushing down, pressure 4. Low, dull backache 5. Cramps that feel like a period 6. Cramps with or without diarrhea If you notice any of the above symptoms, contact our office at [phone] and ask to speak with a nurse. After hours, you can call doctors registry at [phone] OR call [facility] at [phone] and ask to have the doctor security professionals paged. If you consider this an emergency, dial 9-1-1 or go to your nearest emergency department. NEED HELP? Are you dealing with a violent or abusive relationship? Are you a victim of rape or sexual assult? Call [facility] ([place]) 24 hour Crisis Hotline: 567.506.6651 or 655-010-3828. MANUAL Your Guide to a Healthy manual is now on-line. Visit [email or web address] to download your free copy documented in this encounter [facility] 10-02-2023 Note HNO ID: [id number] Author: SHELLEY AKHTAR MD Service: ? Author Type: Physician Type: Progress Notes Filed: 10/02/2023 16:31 Note Text: NST SUMMARY PROVIDER ASSESSMENT AND INTERPRETATION Mauro Ba is a 33 year old female, , who is at 35w5d with an DELBERT of 11/01/2023, by Last Menstrual Period dating method. Indications for NST: IUGR Baseline: 135 Variability: Moderate Accelerations: Present 15 X 15 Decelerations: None Contractions: TOCO: None Interpretation: Reactive SIGNATURE: Shelley Akhtar DO [facility] 09-12-2023 Note HNO ID: [id number] Author: Bisi Mcgowan APRN.CNM Service: ? Author Type: Weaver Hand Type: Progress Notes Filed: 09/12/2023 2:20 PM Note Text: [facility] 08-28-2023 Miscellaneous Notes S: Mauro Ba is a 33 year old female who presents at 30.5 weeks gestation for a routine visit. Positive movement. Denies headache, visual changes, chest pain, shortness of breath, vaginal bleeding, leakage of fluid, or dysuria. Feeling well, no complaints. O: See flow sheet Gen: No apparent distress Abd: Gravid, non tender S=D ASSESSMENT/PLAN: 1. Supervision of high risk in third trimester - ICD9: V23.9, ICD10: O09.93 (primary diagnosis) 2. 30 weeks gestation of - ICD9: V22.2, ICD10: Z3A.30 3. Previous delivery by section - Growth US at next visit - Desires physiological onset of labor and TOLAC but agrees to schedule repeat C/S at 40 weeks gestation 1) PTL precautions reviewed and when to call 2) RTO 2 weeks Sharon Mccormick APRN.CNM documented in this encounter [facility] 08-28-2023 Tavo Us Cma, Shekhar - 08/28/2023 10:29 AM EST SEQUENTIAL SCREENINGS The [facility] offers sequential screenings for women who are interested in screenings for chromosomal abnormalities and certain defects during a . The sequential screen combines ultrasound and blood tests to determine the risk of chromosomal abnormalities, including Down's Syndrome (Trisomy 21) and Trisomy 18, as well as open neural tube defects including spina bifida. Ultrasound examination is performed between 11 weeks and 13 weeks gestational age. Blood tests are drawn after the ultrasound and again later in the between 15 and 21 weeks gestational age. Please let your physician know if you are interested in this testing. It will require an appointment with our marine technician. This is not an ultrasound performed by a physician in our office during a routine visit. SIGNS AND SYMPTOMS OF LABOR 1. Contractions every 10 minutes or more often 2. Clear, pink, or brownish fluid (water) leaking from vagina 3. Feeling that baby is pushing down, pressure 4. Low, dull backache 5. Cramps that feel like a period 6. Cramps with or without diarrhea If you notice any of the above symptoms, contact our office at [phone] and ask to speak with a nurse. After hours, you can call doctors registry at [phone] OR call [facility] at [phone] and ask to have the doctor security professionals paged. If you consider this an emergency, dial 9-1-1 or go to your nearest emergency department. NEED HELP? Are you dealing with a violent or abusive relationship? Are you a victim of rape or sexual assult? Call [facility] ([place]) 24 hour Crisis Hotline: 399.632.6396 or 293-305-5894. MANUAL Your Guide to a Healthy manual is now on-line. Visit [email or web address] to download your free copy documented in this encounter [facility] 08-13-2023 Miscellaneous Notes 3rd risk assessment form submitted 08/13/23 Mel Cuevas RN documented in this encounter [facility] 08-12-2023 Note HNO ID: [id number] Author: Mayuri Fields Ma Service: ? Author Type: ? Type: Progress Notes Filed: 08/12/2023 12:45 PM Note Text: Patient identified by name and date of . Mauro Ba presents today for a vaccination of Tdap. Patient denies an allergy to latex: yes Patient denies a severe (life-threatening) allergy to a previous dose of Tdap, DTP, DTaP, DT or Td vaccine. Yes Patient denies history of epilepsy or neurological problems: Yes Patient is afebrile and denies being moderately or severely ill: Yes Patient denies history of Guillain-[place] Syndrome (a severe paralytic illness): Yes Tdap Adacel injection was given without incident. See immunizations for details of immunizations administered today. VIS sheet provided: Yes Provider Fanny Reynolds MD was present in office at time of injection. [facility] 07-29-2023 Instructions Bisi Mcgowan APRN.ZAINAM - 07/29/2023 1:05 PM EST SEQUENTIAL SCREENINGS The [facility] offers sequential screenings for women who are interested in screenings for chromosomal abnormalities and certain defects during a . The sequential screen combines ultrasound and blood tests to determine the risk of chromosomal abnormalities, including Down's Syndrome (Trisomy 21) and Trisomy 18, as well as open neural tube defects including spina bifida. Ultrasound examination is performed between 11 weeks and 13 weeks gestational age. Blood tests are drawn after the ultrasound and again later in the between 15 and 21 weeks gestational age. Please let your physician know if you are interested in this testing. It will require an appointment with our marine technician. This is not an ultrasound performed by a physician in our office during a routine visit. SIGNS AND SYMPTOMS OF LABOR 1. Contractions every 10 minutes or more often 2. Clear, pink, or brownish fluid (water) leaking from vagina 3. Feeling that baby is pushing down, pressure 4. Low, dull backache 5. Cramps that feel like a period 6. Cramps with or without diarrhea If you notice any of the above symptoms, contact our office at [phone] and ask to speak with a nurse. After hours, you can call doctors registry at [phone] OR call [facility] at [phone] and ask to have the doctor security professionals paged. If you consider this an emergency, dial 91-4 or go to your nearest emergency department. NEED HELP? Are you dealing with a violent or abusive relationship? Are you a victim of rape or sexual assult? Call [facility] ([place]) 24 hour Crisis Hotline: 812.867.1650 or 457-928-2149. MANUAL Your Guide to a Healthy manual is now on-line. Visit [email or web address] to download your free copy 1 HOUR GLUCOLA TEST PREPARATION, EXPLANATION & INSTRUCTIONS The test is performed to detect gestational diabetes mellitus. Some women, when they become , will develop this condition. If left untreated or undetected, diabetes may lead to problems with both your health and your baby's. All OB patients must have the 1 hour Glucola testing between 24 and 28 weeks. Patient is permitted to eat 2 hours prior to Glucola testing. Patient is to arrive at her appointment prepared to drink 50gms of glucose beverage. Blood will be drawn 1 hour after Glucola is consumed. No food, candy, gum, beverages or water may be consumed during the test. No smoking during testing!! Testing is complete after blood is drawn. documented in this encounter [facility] 07-29-2023 Miscellaneous Notes JOVANI-S: Mauro Ba is a 33 year old female who presents at 26w3d with DELBERT:11/01/2023, by Last Menstrual Period for a routine visit. Good FM. Denies headache, chest pain, vaginal bleeding, leakage of fluid, or dysuria. Feeling well. For past 2 weeks, some blurred vision bilaterally when first arising from bed in am. Denies tinnitus, right upper quadrant pain, no facial nor extremity swelling. O: See flow sheet Gen: No apparent distress Abd: Gravid, nontender ASSESSMENT/PLAN: 1. 26 weeks gestation of 2. Supervision of high risk in second trimester 3. History of anomaly in prior , currently 4. with history of section, antepartum 5. History of depression - ICD9: V11.8, ICD10: Z86.59 No history of depression. Will do depression screening next visit P: 1) PTL precautions reviewed and when to call 2) RTO in 2 weeks for 28 week labs, Depression Screening 3) 1hr GCT, CBC, and RPR next visit 4) Handout for TDAP provided. Tdap next visit. 5) US at 32 weeks 6) Encouraged to F/U with Eye Dr to assess blurred vision 7) Planning TOLAC [facility] [employer] NOTE OF PERSONAL INVOLVEMENT IN CARE: I have interviewed the patient and updated the midwifery student's PFS history, and ROS as necessary. I have re-performed the HPI, Physical Examination, Assessment and Plan. Bisi Mcgowan APRN.CNM documented in this encounter [facility] 07-15-2023 Miscellaneous Notes Rx sent for Protonix 20 mg PO daily- slow release. Please notify patient. Sharon Mccormick APRN.CNM documented in this encounter [facility] 07-01-2023 Miscellaneous Notes 2nd risk assessment form submitted 07/01/23 Mel Cuevas RN documented in this encounter [facility] 06-10-2023 Note HNO ID: [id number] Author: Kieran Rucker MD Service: ? 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 In her first she had normal first trimester ultrasound but at anatomy was referred to [facility] due to concern for ascites. She was followed due to concern for ascites, polyhydramnios, concern for possible bladder outlet obstruction. Ultrasound at 34w5d showed fluid collection with septation in pelvis 8.2 x 8.3 x 8.5cm. She presented in active labor at 34w5d and underwent delivery ( recommended due to ascites), [facility]. Uncomplicated low transverse delivery, daughter weighed 2680g. Operative report was reviewed today in office and will be scanned into medical record. 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 Mckay Warren is doing well today, accompanies her parents to the visit. She is catheterized intermittently and recently had UTI, otherwise doing quite well. They deny family history of defects or inherited conditions. Father tested positive as CF carrier per their report but Mauro tested and was negative. She denies any other contributing medical history or concerns regarding today's visit and is otherwise feeling well. HISTORY REVIEW PAST MEDICAL HISTORY Diagnosis Date Abnormal glandular Papanicolaou smear of cervix 2019 Anemia Chlamydia 2015 Depression/anxiety Fibrocystic breast H/O seasonal allergies Kidney cyst, acquired 03/05/2021 PAST SURGICAL HISTORY Procedure Laterality Date DELIVERY ONLY PAST SURGICAL HISTORY OF wisdom teeth FAMILY HISTORY Problem Relation Age of Onset No Known Problems Mother No Known Problems Father Kidney Disease Maternal Grandmother COPD Maternal Grandfather Hyperlipidemia Paternal Grandmother Hypertension Paternal Grandmother Hypertension Paternal Grandfather Hyperlipidemia Paternal Grandfather Alzheimer's Disease Paternal Grandfather Kidney Disease Daughter Social History Tobacco Use Smoking status: Former Years: 10 Types: Cigarettes Quit date: 04/15/2018 Years since quittin.1 Smokeless tobacco: Never Vaping Use Vaping Use: Former Quit date: 08/14/2020 Substances: Nicotine Substance Use Topics Alcohol use: Not Currently Comment: rarely-none since 2019 Drug use: Never Obstetric History T0 L1 SAB0 IAB0 Ectopic0 Multiple0 Live Births1 Name of Baby 1: Kelvin Torres Date: 04/11/21 GA: 34w5d Delivery: , Other Apgar1: Not recorded Apgar5: Not recorded Living: Living Name of Baby 2: Not recorded Date: Not recorded GA: Not recorded Delivery: Not recorded Apgar1: Not recorded Apgar5: Not recorded Living: Not recorded ALLERGIES No Known Allergies PRIOR TO ADMISSION MEDICATIONS: Current Outpatient Medications Medication Instructions cetirizine (ZYRTEC) 10 mg tablet 1 tablet, ORAL, DAILY famotidine (PEPCID) 20 mg, ORAL fluticasone (FLONASE) 50 mcg/actuation nasal spray 2 Sprays, NASAL ondansetron orally disintegrating (ZOFRAN ODT) 4 mg, ORAL, EVERY 8 HOURS NEEDED PNV [id number]-ozn-epa 3.33 mg iron- 0.33 mg chew ORAL REVIEW OF SYSTEMS: The remainder of the review of systems is negative. Objective LAST VITALS: BP 122/70 Wt 163 lb 12.8 oz (74.3 kg) LMP 01/25/2023 (Exact Date) BMI 24.91 kg/m? 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 Anatomy ultrasound and cervical length reassuring today. We discussed that cases of urogenital sinus are related to defect in females urinary and reproductive tract that happens during early development and is present at . In the absence of syndromic features cases are considered sporadic which appears to be Rand's case, as she is meeting developmental milestones and otherwise doing well. She is currently carrying a male fetus and we do not anticipate risk (more content not included)... [facility] 06-09-2023 Telephone encounter Note Returned call to see if there's a fax # I can send records for continuation of care for this patient. S/w [phone]. Faxed for continuation of care. Confirmed with patient verbally prior to sending. [facility] 06-09-2023 Miscellaneous Notes Returned call to see if there's a fax # I can send records for continuation of care for this patient. S/w [phone]. Faxed for continuation of care. Confirmed with patient verbally prior to sending. S: Elen from [facility] spoke with [facility] nurse regarding medical records B: Elen states patient has appointment there tomorrow and they faxed a release and they only received hospital records and not any office notes A: Advised her I would get message to office R: Sent TE to office for further assistance documented in this encounter [facility] 06-09-2023 Telephone encounter Note S: Elen from [facility] spoke with [facility] nurse regarding medical records B: Elen states patient has appointment there tomorrow and they faxed a release and they only received hospital records and not any office notes A: Advised her I would get message to office R: Sent TE to office for further assistance [facility] 06-09-2023 Miscellaneous Notes We received lab results from [facility] only. Called and spoke with patient. Patient said that we were to receive her appointment notes. A total of 3 visits. X2 @ [place] and x1 @ [place]. Called the office of Marylin Cartagena MD @ [phone]. I was given the fax number for an outside facility that handles their medical records. Faxed release to [phone]. There are x3 visits available in Care Everywhere - 02/27, 03/26, and 04/10. Printed those and placed in PNOB mailbox. Jennifer James RN documented in this encounter [facility] 05-28-2023 Miscellaneous Notes DM-Pt doing well. Denies vaginal Bleeding, Leaking fluid, or regular Contractions. Physical Exam: Gen: female in no apparent distress Abd: soft, Gravid. Non tender to palpation. See flow sheet A/P: @ 17.4 weeks 1) reviewed TOLAC- good candidate- reviewed will not perform IOL- offered [facility] for iol if no spontaneous labor. Discussed scheduled section 39-41 weeks. 2) anatomy with MFM 3) RTO 4 wks Karishma Mina MD documented in this encounter [facility] 05-28-2023 Instructions Marcy Morgan Ma 05/28/2023 2:11 PM EDT SEQUENTIAL SCREENINGS The [facility] offers sequential screenings for women who are interested in screenings for chromosomal abnormalities and certain defects during a . The sequential screen combines ultrasound and blood tests to determine the risk of chromosomal abnormalities, including Down's Syndrome (Trisomy 21) and Trisomy 18, as well as open neural tube defects including spina bifida. Ultrasound examination is performed between 11 weeks and 13 weeks gestational age. Blood tests are drawn after the ultrasound and again later in the between 15 and 21 weeks gestational age. Please let your physician know if you are interested in this testing. It will require an appointment with our marine technician. This is not an ultrasound performed by a physician in our office during a routine visit. SIGNS AND SYMPTOMS OF LABOR 1. Contractions every 10 minutes or more often 2. Clear, pink, or brownish fluid (water) leaking from vagina 3. Feeling that baby is pushing down, pressure 4. Low, dull backache 5. Cramps that feel like a period 6. Cramps with or without diarrhea If you notice any of the above symptoms, contact our office at [phone] and ask to speak with a nurse. After hours, you can call doctors registry at [phone] OR call [facility] at [phone] and ask to have the doctor security professionals paged. If you consider this an emergency, dial [phone] or go to your nearest emergency department. NEED HELP? Are you dealing with a violent or abusive relationship? Are you a victim of rape or sexual assult? Call [facility] ([place]) 24 hour Crisis Hotline: 555.166.7843 or 881-890-4248. MANUAL Your Guide to a Healthy manual is now on-line. Visit [email or web address] to download your free copy documented in this encounter [facility] 05-06-2023 Miscellaneous Notes Patient declined centering. Shekhar Us Cma documented in this encounter [facility] 05-05-2023 Miscellaneous Notes Rx signed. Sharon Mccormick APRN.CNM See pt's mychart request for a refill on her Zofran. Please advise. Rosana Miller LPN' documented in this encounter [facility] 05-02-2023 Miscellaneous Notes Initial risk assessment form submitted 05/02/2023 Opal Lancaster RN documented in this encounter [facility] 04-30-2023 Note HNO ID: [id number] Author: Sharon Mccormick APRN.CNM Service: ? Author Type: Weaver Hand Type: Progress Notes Filed: 04/30/2023 3:05 PM Note Text: INITIAL OB ASSESSMENT OB Provider: Sharon Mccormick APRN CNM HPI: Mauro is a 33 year old White here to establish Obstetrical Care. Patient's last menstrual period was 01/25/2023 (exact date). from OB Dating Form. Cycles regular was planned Complaints: nausea without vomiting OB History T0 L1 SAB0 IAB0 Ectopic0 Multiple0 Live Births1 # 1 - Date: 04/11/21, Sex: Female, Weight: 5 lb 14.5 oz (2.679 kg), GA: 34w5d, Delivery: , Other, Apgar1: None, Apgar5: None, Living: Living, Comments: PTL@28 weeks@ [facility] Presented to hospital in [facility],c section due to abdominal ascites,polyhydramnios,Saw MFM at [facility],urethra/vaginal surgery at age 6 months to separate # 2 - Date: None, Sex: None, Weight: None, GA: None, Delivery: None, Apgar1: None, Apgar5: None, Living: None, Comments: None Previous history: Prior : yes x 1- due to ascites/ they were unsure that baby would be able to fit vaginally. History of 4th degree laceration: No History of shoulder dystocia: No History of Hypertensive disorders including pre-eclampsia, chronic hypertension or gestational hypertension: No History of gestational diabetes: No 34.5 gestation with daughter Labor for 10 hours- dilated to Decision made for c/s due to ascities of Patient's Risk Screening for delivery: Have you had a prior pedersen between 20w and 36w6d?: (!) Yes Did you present in active spontaneous labor or have ruptured membranes, or advanced cervical dilation (greater than or equal to 4 cm) or effacement?: (!) Yes MEDICAL/PSYCHOSOCIAL HISTORY: History of hemorrhage or bleeding concerns: No Thyroid Disease: No History of chronic hypertension: No History of pre-existing diabetes: No No results found for: ABORHD No weight on file for this encounter. History of abnormal pap: Yes Prior treatment for cervical dysplasia: none. History of STDs: Tobacco use: No Caffeine use: No Drug use: No Alcohol use: No Multivitamin with Folic acid: Yes Mormon or heritage: No Would refuse blood transfusion if medically necessary: No Are you currently employed? No Do you have any history of depression, anxiety, PTSD, eating disorders or other mood problems: Yes in past, no current treatment or medications Do you have any safety concerns or history of traumatic events that you would like to discuss with your provider: No How often does this describe you? I don't have enough money to pay my bills: Never Within the past 12 months, have you worried that your food would run out before you had money to buy more: Never In the past 12 months, has lack of reliable transportation kept you from going to medical appointments or work, or from keeping things needed for daily living: Never In the past 12 months, have you had any concerns about having a place to live, or about the condition or quality of your housing: Never Are there any cultural or spiritual needs we should be aware of: No Depression: denies symptoms of depression. OB Depression and Anxiety Screening- This Encounter (since 04/29/2023) Over the past 2 weeks have you felt down, depressed, or hopeless? Negative Over the past two weeks, have you felt little interest or pleasure in doing things?? 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 cetirizine (ZYRTEC) 10 mg tablet Take 1 tablet by mouth once daily. ondansetron orally disintegrating (ZOFRAN ODT) 4 mg disintegrating tablet Take 4 mg by mouth every 8 hours as needed. famotidine (PEPCID) 20 mg tablet Take 20 mg by mouth. fluticas (more content not included)... [facility] 04-30-2023 Miscellaneous Notes Patient seen for NOB. She is at 13.4 weeks gestation. She is a transfer of care from [facility]. See progress note. Sharon Mccormick APRN.CNM documented in this encounter [facility] 04-30-2023 Instructions Shekhar Us Cma - 04/30/2023 1:09 PM EDT Please select the following link to access the [facility] Your Guide to a Healthy . [email or web address] documented in this encounter [facility] 04-30-2023 History of Presen t illness Narrative INITIAL OB ASSESSMENT OB Provider: Sharon Mccormick APRN CNM HPI: Mauro is a 33 year old White here to establish Obstetrical Care. Patient's last menstrual period was 01/25/2023 (exact date). from OB Dating Form. Cycles regular was planned Complaints: nausea without vomiting OB History T0 L1 SAB0 IAB0 Ectopic0 Multiple0 Live Births1 # 1 - Date: 04/11/21, Sex: Female, Weight: 5 lb 14.5 oz (2.679 kg), GA: 34w5d, Delivery: , Other, Apgar1: None, Apgar5: None, Living: Living, Comments: PTL@28 weeks@ [facility] Presented to hospital [place],c section due to abdominal ascites,polyhydramnios,Saw MFM at [facility],urethra/vaginal surgery at age 6 months to separate # 2 - Date: None, Sex: None, Weight: None, GA: None, Delivery: None, Apgar1: None, Apgar5: None, Living: None, Comments: None Previous history: Prior : yes x 1- due to ascites/ they were unsure that baby would be able to fit vaginally. History of 4th degree laceration: No History of shoulder dystocia: No History of Hypertensive disorders including pre-eclampsia, chronic hypertension or gestational hypertension: No History of gestational diabetes: No 34.5 gestation with daughter Labor for 10 hours- dilated to Decision made for c/s due to ascities of infant Patient's Risk Screening for delivery: Have you had a prior pedersen between 20w and 36w6d?: (!) Yes Did you present in active spontaneous labor or have ruptured membranes, or advanced cervical dilation (greater than or equal to 4 cm) or effacement?: (!) Yes MEDICAL/PSYCHOSOCIAL HISTORY: History of hemorrhage or bleeding concerns: No Thyroid Disease: No History of chronic hypertension: No History of pre-existing diabetes: No No results found for: ABORHD No weight on file for this encounter. History of abnormal pap: Yes Prior treatment for cervical dysplasia: none. History of STDs: Tobacco use: No Caffeine use: No Drug use: No Alcohol use: No Multivitamin with Folic acid: Yes Mormon or heritage: No Would refuse blood transfusion if medically necessary: No Are you currently employed? No Do you have any history of depression, anxiety, PTSD, eating disorders or other mood problems: Yes in past, no current treatment or medications Do you have any safety concerns or history of traumatic events that you would like to discuss with your provider: No How often does this describe you? I don't have enough money to pay my bills: Never Within the past 12 months, have you worried that your food would run out before you had money to buy more: Never In the past 12 months, has lack of reliable transportation kept you from going to medical appointments or work, or from keeping things needed for daily living: Never In the past 12 months, have you had any concerns about having a place to live, or about the condition or quality of your housing: Never Are there any cultural or spiritual needs we should be aware of: No Depression: denies symptoms of depression. OB Depression and Anxiety Screening- This Encounter (since 04/29/2023) Over the past 2 weeks have you felt down, depressed, or hopeless? Negative Over the past two weeks, have you felt little interest or pleasure in doing things? 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 cetirizine (ZYRTEC) 10 mg tablet Take 1 tablet by mouth once daily. ondansetron orally disintegrating (ZOFRAN ODT) 4 mg disintegrating tablet Take 4 mg by mouth every 8 hours as needed. famotidine (PEPCID) 20 mg tablet Take 20 mg by mouth. fluticasone (FLONASE) 50 mcg/actuation nasal spray Use 2 Sprays in the nose. No current facility-administered medications for this visit. Allergies As of Date: 04/30/2023 (No Known Allergies) Fully Assessed 04/30/2023 Does patient have penicillin allergy: No REVIEW OF SYSTEMS: GENERAL: Negative for: Fever or Chills and Positive for: Fatigue HEENT: Negative for: Headache, Impaired Vision, Ringing in Ears, Nosebleeds (occasional) NECK: Negative for: Swelling, Pain, Stiffness RESPIRATORY: Negative for: Cough, Shortness of breath, Wheezing GASTROINTESTINAL: Negative for: Constipation, Diarrhea, Blood in stool, Vomiting MUSCULOSKELETAL: Negative for: Muscle or joint pain, stiffness, Joint swelling NEUROLOGIC/PSYCHIATRIC: Negative for: Weakness, Paralysis, Numbness, Tingling, Tremor, Anxiety, Depression, Memory loss SKIN: Negative for: Rash, Itching GENITOURINARY: Negative for: vaginal itching, vaginal discharge, hematuria or dysuria PHYSICAL EXAM: BP 106/72 Ht 5' 8 (1.73m) Wt 157 lb (71.2kg) LMP 01/25/2023 BMI 23.88 kg/(m^2). GENERAL: pleasant in no apparent distress DERMATOLOGY: Normal, without lesions, non-icteric, and non-hirsute NECK: Supple, full range of motion, no adenopathy, and thyroid normal CHEST: Normal inspiratory effort BREAST: soft, non-tender, symmetric, no dominant mass, normal nipple-areolar complex, no lymphadenopathy, and no nipple discharge ABDOMEN: soft, non-tender, and no masses NEURO: alert and oriented x3,exam grossly non-focal Limited OB ultrasound exam: not performed OB Risk Screening: Completed, positive findings include: Patient answered 'Yes' they had a prior pedersen between 20w and 36w6d. ASSESSMENT/PLAN: 1. Encounter for supervision of normal in multigravida - ICD9: V22.1, ICD10: Z34.80 - OBSTETRIC ULTRASOUND WHI 2. 13 weeks gestation of - ICD9: V22.2, ICD10: Z3A.13 3. with history of section, antepartum - ICD9: 654.23, ICD10: O34.219 4. History of anomaly in prior , currently - ICD9: V23.49, ICD10: O09.299 5. History of delivery - ICD9: V13.21, ICD10: Z87.51 PLAN: 1) Patient oriented to practice. Discussed nutrition, folic acid supplementation, dietary guidelines, exercise, smoking, alcohol, caffeine, and drug use. Discussed gestational weight gain guidelines. Discussed aneuploidy and carrier screening. Regarding aneuploidy screening, nuchal translucency/first trimester early anatomy ultrasound and NIPT were discussed. Regarding carrier screening, the myriad screen was discussed. The risks/benefits and limitations of NIPT/aneuploidy screening were reviewed including the potential for false negative and false positive results. We discussed the availability of professional-society guided carrier screening and reviewed the conditions screened and limitations of screening. The availability of genetic counseling was reviewed. Information on aneuploidy/carrier screening was provided. The patient chooses: Aneuploidy screening: chooses to proceed with NIPT (10 weeks) and Carrier screening: Previously ordered She had NIPT completed with previous practice Reviewed midwifery and textile stylist services that are available. 2) History of . Will order MFM consult for further discussion. History of section: Pt counselled regarding TOLAC versus Repeat Section. Pt wants to consider options.. Will review operative report. 3) Hesitant to have MFM consult due to last being strictly MFM/ High risk due to anomalies. Advised recommend a consult due to history of anomalies, labor, and previous section. Patient will think about it and may have consult completed after anatomy US. Follow up in 4 weeks or sooner prn. Sharon Mccormick APRN.CNM documented in this encounter [facility] 04-28-2023 Note HNO ID: [id number] Author: Raiza Man RN Service: ? Author Type: ? Type: Progress Notes Filed: 04/28/2023 5:51 PM Note Text: INITIAL OB ASSESSMENT OB Provider: Raiza Man RN HPI: Mauro is a 33 year old White here to establish Obstetrical Care. Patient's last menstrual period was 01/25/2023 (exact date). from OB Dating Form. Cycles regular was planned Complaints: nausea without vomiting OB History T0 L1 SAB0 IAB0 Ectopic0 Multiple0 Live Births1 # 1 - Date: 04/11/21, Sex: Female, Weight: 5 lb 14.5 oz (2.679 kg), GA: 34w5d, Delivery: , Other, Apgar1: None, Apgar5: None, Living: Living, Comments: PTL@28 weeks@ [facility] Presented to hospital in [place],c section due to abdominal ascites,polyhydramnios,Saw MFM at [facility],urethra/vaginal surgery at age 6 months to separate # 2 - Date: None, Sex: None, Weight: None, GA: None, Delivery: None, Apgar1: None, Apgar5: None, Living: None, Comments: None Previous history: Prior : yes x 1 History of 4th degree laceration: No History of shoulder dystocia: No History of Hypertensive disorders including pre-eclampsia, chronic hypertension or gestational hypertension: No History of gestational diabetes: No Patient's Risk Screening for delivery: Have you had a prior pedersen between 20w and 36w6d?: (!) Yes Did you present in active spontaneous labor or have ruptured membranes, or advanced cervical dilation (greater than or equal to 4 cm) or effacement?: (!) Yes MEDICAL/PSYCHOSOCIAL HISTORY: History of hemorrhage or bleeding concerns: No Thyroid Disease: No History of chronic hypertension: No History of pre-existing diabetes: No No results found for: ABORHD No weight on file for this encounter. History of abnormal pap: Yes Prior treatment for cervical dysplasia: none. History of STDs: Tobacco use: No Caffeine use: No Drug use: No Alcohol use: No Multivitamin with Folic acid: Yes Mormon or heritage: No Would refuse blood transfusion if medically necessary: No Are you currently employed? No Do you have any history of depression, anxiety, PTSD, eating disorders or other mood problems: Yes Do you have any safety concerns or history of traumatic events that you would like to discuss with your provider: No How often does this describe you? I don't have enough money to pay my bills: Never Within the past 12 months, have you worried that your food would run out before you had money to buy more: Never In the past 12 months, has lack of reliable transportation kept you from going to medical appointments or work, or from keeping things needed for daily living: Never In the past 12 months, have you had any concerns about having a place to live, or about the condition or quality of your housing: Never Are there any cultural or spiritual needs we should be aware of: No Depression: denies symptoms of depression. 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 cetirizine (ZYRTEC) 10 mg tablet Take 1 tablet by mouth once daily. ondansetron orally disintegrating (ZOFRAN ODT) 4 mg disintegrating tablet Take 4 mg by mouth every 8 hours as needed. famotidine (PEPCID) 20 mg tablet Take 20 mg by mouth. fluticasone (FLONASE) 50 mcg/actuation nasal spray Use 2 Sprays in the nose. No current facility-administered medications for this visit. Allergies As of Date: 04/28/2023 (No Known Allergies) Fully Assessed 04/28/2023 Does patient have penicillin allergy: No [facility] 04-28-2023 Miscellaneous Notes DISTANCE HEALTH VISIT This Team Access Model visit is a phone encounter. It required patient-provider interaction for the medical decision making as documented below. Mauro Ba is a 33 year old female seen for PNOB. Patient is transferring care from [facility]. She has had 3 visits there. I have advised her that we need to have her records transferred here from their office. I am able to view some records in care everywhere and have sent that to Dr. Reynolds for review. Patient states that she had johanny drawn 03/27/2023. Declines nuchal ultrasound. Patient had a previous at 35 weeks. She presented at the hospital in labor and delivery and a was done due to abdominal ascites and polyhydramnios. She had seen MFM at [facility] throughout that . Patient desires . MAs on and ordered and patient is asked to watch these prior to her new OB appointment. Baby had urethral/vaginal surgery at age 6 months to separate the urethra and vagina since they were so closely placed together. Patient states that her child has been released from care from her bar manager. She states the baby is doing well. She states that the baby also at 4 months had to have intestinal surgery because 7 inches of her intestine had for no reason .Pt has a history of anxiety/depression diagnosed in 2016. She has been off medication since 2019. She believes she felt worse when she was on medication. She denies any depression. Discussed increased risks of depression during and and importance of reporting the development or worsening of symptoms should they occur. Pt denies ever having any suicidal thoughts or tendencies or thoughts of hurting others. Patient states a renal cyst was seen on her ultrasound done previously. She states no follow-up was done.Raiza Man RN documented in this encounter [facility] 04-28-2023 History of Presen t illness Narrative INITIAL OB ASSESSMENT OB Provider: Raiza Man RN HPI: Mauro is a 33 year old White here to establish Obstetrical Care. Patient's last menstrual period was 01/25/2023 (exact date). from OB Dating Form. Cycles regular was planned Complaints: nausea without vomiting OB History T0 L1 SAB0 IAB0 Ectopic0 Multiple0 Live Births1 # 1 - Date: 04/11/21, Sex: Female, Weight: 5 lb 14.5 oz (2.679 kg), GA: 34w5d, Delivery: , Other, Apgar1: None, Apgar5: None, Living: Living, Comments: PTL@28 weeks@ [facility] Presented to hospital in L&D,c section due to abdominal ascites,polyhydramnios,Saw MFM at [facility],urethra/vaginal surgery at age 6 months to separate # 2 - Date: None, Sex: None, Weight: None, GA: None, Delivery: None, Apgar1: None, Apgar5: None, Living: None, Comments: None Previous history: Prior : yes x 1 History of 4th degree laceration: No History of shoulder dystocia: No History of Hypertensive disorders including pre-eclampsia, chronic hypertension or gestational hypertension: No History of gestational diabetes: No Patient's Risk Screening for delivery: Have you had a prior pedersen between 20w and 36w6d?: (!) Yes Did you present in active spontaneous labor or have ruptured membranes, or advanced cervical dilation (greater than or equal to 4 cm) or effacement?: (!) Yes MEDICAL/PSYCHOSOCIAL HISTORY: History of hemorrhage or bleeding concerns: No Thyroid Disease: No History of chronic hypertension: No History of pre-existing diabetes: No No results found for: ABORHD No weight on file for this encounter. History of abnormal pap: Yes Prior treatment for cervical dysplasia: none. History of STDs: Tobacco use: No Caffeine use: No Drug use: No Alcohol use: No Multivitamin with Folic acid: Yes Mormon or heritage: No Would refuse blood transfusion if medically necessary: No Are you currently employed? No Do you have any history of depression, anxiety, PTSD, eating disorders or other mood problems: Yes Do you have any safety concerns or history of traumatic events that you would like to discuss with your provider: No How often does this describe you? I don't have enough money to pay my bills: Never Within the past 12 months, have you worried that your food would run out before you had money to buy more: Never In the past 12 months, has lack of reliable transportation kept you from going to medical appointments or work, or from keeping things needed for daily living: Never In the past 12 months, have you had any concerns about having a place to live, or about the condition or quality of your housing: Never Are there any cultural or spiritual needs we should be aware of: No Depression: denies symptoms of depression. 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 cetirizine (ZYRTEC) 10 mg tablet Take 1 tablet by mouth once daily. ondansetron orally disintegrating (ZOFRAN ODT) 4 mg disintegrating tablet Take 4 mg by mouth every 8 hours as needed. famotidine (PEPCID) 20 mg tablet Take 20 mg by mouth. fluticasone (FLONASE) 50 mcg/actuation nasal spray Use 2 Sprays in the nose. No current facility-administered medications for this visit. Allergies As of Date: 04/28/2023 (No Known Allergies) Fully Assessed 04/28/2023 Does patient have penicillin allergy: No documented in this encounter [facility] 04-10-2023 History of Presen t illness Narrative HPI Presents today for initial OB at Unknown, Patient's last menstrual period was 01/25/2023 (exact date). Last pap 12/12/21 was NSIL. Anxiety and depression well controlled off medication. Last , daughter had hydronephrosis that was surgically corrected. Was offered to see MFM at [facility] but declined. Otherwise will watch with anatomy scans at routine visits. 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 All routine NOB labs done. Gave NOB safe medication list in . Discussed genetic screening options for chromosomes 13, 18, 21, x and y as well as screening options for neural tube and cardiac defects. Questions answered. Pt requested screening and elects to have genetic testing. Pt aware of the time sensitive nature of the screening and will let us know if she changes her mind about the testing. Reviewed screening for SMA, Fragile X and CF. Discussed sex option, pt would like to know the gender. Patient with prior history of : Yes Patient with prior history of fourth degree laceration: No Patient with prior history of shoulder dystocia: No High Risk Indication for Daily ASA: no ASA prescribed: No, Not Indicated OB centering visits discussed. Patient does not plan to go to centering. OB History Para Term AB Living 2 1 1 1 SAB IAB Ectopic Multiple Live Births 1 # Outcome Date GA Lbr Shahram/2nd Weight Sex Delivery Anes PTL Lv 2 Current 1 04/11/21 34w5d 5 lb 14 oz (2.665 kg) F CS-LTranv EPI Y WILDA ROS: Constitutional: Negative for fever, positive for fatigue Respiratory: Negative for shortness of breath Breast: positive breast tenderness Cardiovascular: Negative for chest pain GI: negative for abdominal pain, diarrhea, and vomiting positive for constipation and nausea, abdominal pain from constipation : Denies vaginal bleeding, discharge, LOF. Denies dysuria. Physical Exam: BP 125/79 Pulse 104 Wt 161 lb (73 kg) LMP 01/25/2023 (Exact Date) BMI 24.48 kg/m Body mass index is 24.48 kg/m . CONSTITUTIONAL: Oriented to person, place and time. Patient appears well-developed and well nourished. PSYCHIATRIC: Normal mood and affect. Behavior is normal. NEUROLOGICAL: No gross motor or sensory deficits noted. NECK: No thyromegaly, supple. HEART: Regular rate and rhythm LUNGS: Clear to auscultation, no crackles or wheezes, normal respiratory effort. BREASTS: Normal, no masses, tenderness or skin changes B/L SKIN: Warm and dry ABDOMEN: Soft, non-tender, non-distended. No rebound or guarding. LYMPH NODES: No lymphadenopathy in neck, axilla and groin. EXTREMITIES: No edema. EXTERNAL GENITALIA: Normal. VAGINA: Normal, no lesions. clear and thin noted CERVIX: Normal, no CMT UTERUS: gravid 11 weeks size, non-tender ADNEXA: No tenderness, no masses noted URETHRAL MEATUS: Normal, no irritation present. BLADDER: Non tender. Mauro was seen today for initial visit. Diagnoses and all orders for this visit: Nausea and vomiting in (Primary) Anxiety during Depression during in first trimester Supervision of high risk in first trimester - Cancel: Antibody screen; Future - Cancel: ABO Group; Future - Cancel: Rh Type; Future - Cancel: RPR; Future - Cancel: Hepatitis B surface antigen; Future - Cancel: Hemoglobinopathy evaluation; Future - Urine culture - Cancel: HIV-1 and HIV-2 Antigen-Antibody Screen; Future - Cancel: CBC; Future - Cancel: Hepatitis C antibody; Future - Chlamydia/Gonorrhea - Urine dip - Cancel: Antibody screen - Cancel: ABO Group - Cancel: Rh Type - Cancel: RPR - Cancel: Hepatitis B surface antigen - Cancel: Hemoglobinopathy evaluation - Cancel: HIV-1 and HIV-2 Antigen-Antibody Screen - Cancel: CBC - Cancel: Hepatitis C antibody - Hepatitis C antibody; Future - CBC; Future - HIV-1 and HIV-2 Antigen-Antibody Screen; Future - Hemoglobinopathy evaluation; Future - Hepatitis B surface antigen; Future - RPR; Future - Rh Type; Future - ABO Group; Future - Antibody screen; Future History of anomaly in prior , currently History of delivery 10 weeks gestation of - Cancel: Antibody screen; Future - Cancel: ABO Group; Future - Cancel: Rh Type; Future - Cancel: RPR; Future - Cancel: Hepatitis B surface antigen; Future - Cancel: Hemoglobinopathy evaluation; Future - Urine culture - Cancel: HIV-1 and HIV-2 Antigen-Antibody Screen; Future - Cancel: CBC; Future - Cancel: Hepatitis C antibody; Future - Chlamydia/Gonorrhea - Urine dip - Cancel: Antibody screen - Cancel: ABO Group - Cancel: Rh Type - Cancel: RPR - Cancel: Hepatitis B surface antigen - Cancel: Hemoglobinopathy evaluation - Cancel: HIV-1 and HIV-2 Antigen-Antibody Screen - Cancel: CBC - Cancel: Hepatitis C antibody - Hepatitis C antibody; Future - CBC; Future - HIV-1 and HIV-2 Antigen-Antibody Screen; Future - Hemoglobinopathy evaluation; Future - Hepatitis B surface antigen; Future - RPR; Future - Rh Type; Future - ABO Group; Future - Antibody screen; Future Follow up in about 4 weeks (around 05/08/2023) for JOVANNY. documented in this encounter [facility] 04-10-2023 Instructions SHANKAR Alfredo - 04/10/2023 9:00 AM EDT Obstetrical Calendar Weeks Gestation: Discussion and Testing 4-8 weeks - Visit with provider to establish hcg blood levels and order ultrasound. 6-13 Weeks - Dating and Viability Ultrasound and Visit with provider to discuss US results. 10-13 weeks - Initial OB intake and physical with a [facility] or Nurse Practitioner. Obtain complete medical, genetic and obstetrical history blood work ordered education Discuss testing options: 1st trimester screening (provides a more accurate assessment of a woman s risk for carrying a baby with Down Syndrome, Trisomy 13 and Trisomy 18. Carrier Screening for Cystic Fibrosis, Spinal Muscular Atrophy or Fragile x. AFP for Neural Tube Defect. Other tests if appropriate due to risk factors. Discuss Physician and Nurse [facility] options Discuss hospital for delivery 10-14 Weeks - Visit with OB Provider Review Results of Labs Discuss 1st Trimester Screening or Free Cell DNA if you wish to pursue Discuss indications or need for MFM referral if High Risk, or if need for Amniocentesis or CVS (Chorionic villus sampling) test to diagnose chromosomal abnormalities At Each visit - Check Blood pressure, Check urine, check weight and heart tones as indicated 12-16 weeks - Visit with OB Provider Discuss 2nd trimester screening if desired Check blood pressure, urine, weight and heart tones Review OB provider options Schedule anatomy US for 18-20 weeks 18-20 weeks - Anatomy US and Visit with Provider Check weight, blood pressure and urine Listen to heart beat and check uterine size Review results of anatomy US 22-24 weeks - Visit with OB Provider Check weight, blood pressure and urine Listen to heart beat and check uterine size Discuss 1 hour glucose test for gestational diabetes Order blood work for anemia and glucose test to be done around 26-28 weeks Order Antibody screen and rhogam IF Rh negative blood type 26-28 weeks - Visit with OB Provider Check weight, blood pressure and urine Listen to heart beat and check uterine size Review results of glucose test and anemia test if done Discuss plans, preregistration, choosing slat basket maker machine, taking childbirth classes 30 - 36 weeks - Visits with OB provider every 2 weeks Check weight, blood pressure and urine Listen to heart beat and check uterine size High risk testing, if needed, will begin weekly - Please schedule all of theses ahead of time. Discuss circumcision, breast feeding, preregistration. Discuss plans, consider CNM or physician for delivery. 36-40 weeks - Visits with Ob provider every week Check weight, blood pressure and urine Listen to heart beat and check uterine size Obtain vaginal/rectal culture for Group B Strep Cervical exam 41 weeks - Visit with OB provider Discuss option for post term testing with Non-Stress test and [place]LEY Discuss and schedule induction of labor prior to 42 weeks Food Safety in The following tips will help keep your food safe from harmful bacteria. For more information, visit foodsafety.gov. Keep things clean Wash your hands well before and after handling food. Always wash your hands after using the bathroom, changing diapers or handling pets. Wash fruits and vegetables under running water before eating. Wash utensils, dishes, cutting boards, counters and sinks with hot, soapy water after they come in contact with raw meat, poultry, seafood, eggs or unwashed fresh produce. Clean up spills in your refrigerator right away. Look at expiration dates on containers. Once a week throw away food that should no longer be eaten. Keep things Keep raw meat, poultry and seafood separate from other items in your grocery cart and refrigerator. Put uncooked meat, poultry and fish in sealed containers or plastic bags when storing them in the refrigerator. Use one cutting board for raw meats and a different one for fruits and vegetables. Place cooked meat, poultry and seafood on a clean plate. Do not reuse a plate that held the raw food. Keep things chilled Keep your refrigerator at 40 F or below and your freezer at zero F or below. Refrigerate food quickly. Cold temperatures keep most harmful bacteria from multiplying. Refrigerate perishable foods within two hours of purchase. (Refrigerate within one hour if the temperature is more than 90 F.) Refrigerate or freeze prepared foods and leftovers within two hours (within one hour if the temperature is more than 90 F). Use shallow containers for quicker cooling. Don't overpack the refrigerator; leave room for the cold air to circulate. Never thaw foods on the counter. Thaw foods in the refrigerator, in cold water, or in a microwave. Cook things well Use a clean, quick-read food thermometer to determine the temperature of foods. Cook foods until they have reached the proper temperature: roast beef, steaks, pork chops or roast to at least 145 F ground beef to at least 160 F ground turkey, chicken breasts or whole poultry to at least 165 F fish until it's opaque and flakes easily with a fork (145 F) eggs until the yolks and whites are firm egg dishes to 160 F Reheat leftovers to 165 F. Other tips to prevent food-related illness Listeria is a kind of bacteria that can contaminate foods and cause an infection called listeriosis. This is a serious illness that can cause premature labor or to a developing or baby. To reduce your risk of listeriosis: Make sure all milk and milk products are pasteurized. Do not eat unpasteurized soft cheeses such as feta, Brie, Camembert, blue-veined cheeses and Danish-style cheeses. Limit deli foods like prepared salads or cheeses. Reheat hot dogs, lunch meats and deli meats until they are steaming hot. Do not eat refrigerated p t or meat spreads. (Canned or shelf-stable spreads are fine.) Only eat refrigerated smoked seafood as an ingredient in a cooked dish, such as a casserole. Reheat pre-cooked, take-home meals to 165 F. Choosing fish wisely Fish is a good source of protein, contains fatty acids, and is low in saturated fat. However, any fish (store-bought or fresh-caught) could contain contaminants such as mercury or PCBs that can harm a developing baby. It's best to vary the kind of fish you eat and limit the amount of fish you eat to one to two meals a week. The amount of fish in a meal depends on your body weight. If you weigh 150 pounds, you could safely eat one-half pound (8 ounces) of fish (precooked weight). To adjust the amount of fish, subtract or add one ounce of fish for every 20 pounds of body weight: If you weigh 130 pounds, eat 7 ounces of fish. If you weigh 150 pounds, eat 8 ounces of fish. If you weigh 170 pounds, eat 9 ounces of fish. Tips to help you choose fish Avoid devin mackerel, swordfish, tilefish, marlin, orange roughy, and shark. These are large, salt-water fish most likely to have high levels of mercury. Avoid eating these locally caught fish: walleye larger than 20 inches, northern pike larger than 30 inches, and all muskellunge (muskies). Limit eating canned albacore tuna to one 6-ounce meal a month. Light tuna is a smaller fish and less likely to have high levels of mercury. Eat up to two meals a week of farm-raised or wild salmon from the [place] or [place], not from the [place]. Avoid raw fish, sushi and sashimi because it could contain harmful bacteria. Caffeine We don t know a lot about the effects of caffeine during on you and your baby. So it s best to limit the amount you get each day. If you re , limit caffeine to 200 milligrams each day. This is about the amount in 1 8-ounce cups of coffee or one 12-ounce cup of coffee. If you re , limit caffeine to no more than two cups of coffee a day. F Information from November Genetic Screening Tests What is genetic testing? genetic testing gives lunttjo-cl-ia information about whether their fetus has certain genetic disorders. What are genetic disorders? Genetic disorders are caused by changes in a person s genes or chromosomes. Aneuploidy is a condition in which there are missing or extra chromosomes. In a trisomy, there is an extra chromosome. In a monosomy, a chromosome is missing. Inherited disorders are caused by changes in genes called mutations. Inherited disorders include sickle cell disease, cystic fibrosis, Viet-Sachs disease, and many others. In most cases, both parents must carry the same gene to have an affected child. What are genetic screening tests? These tests can tell you the chances that your fetus has an aneuploidy and a few additional disorders. This FAQ focuses on these tests. What are the different types of genetic screening tests? Screening tests can tell you your risk of having a baby with certain disorders. They include carrier screening and genetic screening tests: Carrier screening is done on parents (or those just thinking about becoming parents) using a blood sample or tissue sample swabbed from inside the cheek. These tests are used to find out whether a person carries a gene for certain inherited disorders. Carrier screening can be done before or during . genetic screening tests of the woman s blood and findings from ultrasound exams can screen the fetus for aneuploidy; defects of the brain and spine called neural tube defects; and some defects of the abdomen, heart, and facial features. This focuses on these tests. They include first-trimester screening and second-trimester screening What is first-trimester screening? Aneupoidy screening or NIPT (non-invasive testing) is done with maternal blood taken sometime after 12weeks 4 days. This test helps determine the risk for trisomy 21, trisomy 13 and trisomy 18. It also detects abnormalities of the sex chromosomes such as monosomy X and Turners syndrome. What do the different results of screening tests mean? Results of blood screening tests for aneuploidy are reported as the level of risk that the disorder might be present: A positive screening test result for aneuploidy means that your fetus is at higher risk of having the disorder compared with the general population. It does not mean that your fetus definitely has the disorder. A negative result means that your fetus is at lower risk of having the disorder compared with the general population. It does not rule out the possibility that your fetus has the disorder. What should I consider when deciding whether to have genetic testing? It is your choice whether to have testing. Your personal beliefs and values are important factors in the decision about testing. It can be helpful to think about how you would use the results of screening tests in your care. Remember that a positive screening test tells you only that you are at higher risk of having a baby with Down syndrome or another aneuploidy. A diagnostic test should be done if you want to know a more certain result. Some parents want to know beforehand that their baby will be born with a genetic disorder. This knowledge gives parents time to learn about the disorder and plan for the medical care that the child may need. Some parents may decide to end the in certain situations. Other parents do not want to know this information before the child is born. In this case, you may decide not to have follow-up diagnostic testing if a screening test result is positive. Or you may decide not to have any testing at all. There is no right or wrong answer. Glossary Amniocentesis: A procedure in which a needle is used to withdraw and test a small amount of amniotic fluid and cells from the sac surrounding the fetus. Aneuploidy: Having an abnormal number of chromosomes. Carrier Screening: A test done on a person without signs or symptoms to find out whether he or she carries a gene for a genetic disorder. Chorionic Villus Sampling (CVS): A procedure in which a small sample of cells is taken from the placenta and tested. Cystic Fibrosis: An inherited disorder that causes problems in digestion and breathing. Down Syndrome: A genetic disorder that causes abnormal features of the face and body, medical problems such as heart defects, and intellectual disability. Most cases of Down syndrome are caused by an extra chromosome 21 (trisomy 21). Many children with Down syndrome live to adulthood. Monosomy: A condition in which there is a missing chromosome. Neural Tube Defects: defects that result from incomplete development of the brain, spinal cord, or their coverings. Nuchal Translucency Screening: A test in which the size of a collection of fluid at the back of the neck is measured by ultrasound to screen for certain defects, such as Down syndrome, trisomy 18, or heart defects. Screening Tests: Tests that look for possible signs of disease in people who do not have symptoms. Sickle Cell Disease: An inherited disorder in which red blood cells have a crescent shape, causing chronic anemia and episodes of pain. It occurs most often in Americans. Viet-Sachs Disease: An inherited defect that causes intellectual disability, blindness, seizures, and , usually by age 5 years. It most commonly affects people of Eastern and [place], [place], and [place] descent, but it can occur in anyone. Trisomy 13 ([place] Syndrome): A chromosomal disorder that causes serious problems with the brain and heart as well as extra fingers and toes, cleft palate and lip, and other defects. Most infants with trisomy 13 within the first year of life. Trisomy 18 (Vogel Syndrome): A chromosomal disorder that causes severe intellectual disability and serious physical problems such as a small head, heart defects, and deafness. Most of those affected with trisomy 18 before or within the first month of life. Copyright March 2017 by the [employer] Panorama NIPT Screen Information As an expectant parent, you may want to learn everything you can about the health of your baby. The Panorama Screen checks for the most common chromosomal disorders, such as Down syndrome, Trisomy 18 and Trisomy 13 that could affect your baby s health. This noninvasive test requires only a blood draw, so it s safe for both mom and baby. This test looks at DNA from the that crosses into the mother s blood to screen for chromosomal disorders that can cause serious defects, intellectual disability, or other health problems. Any baby can be born with a chromosome disorder, which is usually caused by a random error of cell division very early in . As women get older, the chance of having a baby with a chromosome disorder goes up. However, young women can have babies with these conditions. How does noninvasive testing work? DNA is the blueprint of life. It carries all of the genetic information needed for our bodies to function. A section of DNA with a specific job is called a gene. DNA is packaged into bundles called chromosomes. Healthy humans have 23 pairs of chromosomes. Any more or less can lead to problems. DNA from the placenta naturally crosses into the mother s bloodstream as a progresses. For the test, a small sample of your blood is drawn and the DNA is analyzed to check for certain chromosomal disorders, which can cause serious defects, intellectual disability, or other health problems in the baby. What conditions can this test detect? Down syndrome (trisomy 21) is caused by an extra copy of chromosome 21. It affects about 1 in 700 newborns,and is the most common genetic cause of mild to moderate intellectual disability. Children with trisomy 21 commonly have typical facial features, and a higher risk for certain health problems, including heart defects, other defects, and hearing and vision problems. Vogel syndrome (trisomy 18) is caused by an extra copy of chromosome 18. It affects about 1 in 5,000 newborns. Children with trisomy 18 may have severe intellectual disability along with serious defects of the heart, brain, and other organs and usually survive less than one year. It is common for pregnancies with trisomy 18 to end in miscarriage or stillbirth. Patau syndrome (trisomy 13) is caused by an extra copy of chromosome 13. It affects about 1 in 16,000 newborns. Children with trisomy 13 may have severe intellectual disability and many serious defects (heart defects, extra fingers, cleft lip and palate, brain and abdominal wall defects) and usually survive less than one year. It is common for pregnancies with trisomy 13 to end in miscarriage or stillbirth. Ramos syndrome (monosomy X)* is caused by a missing X chromosome in females. It affects about 1 in 2,000 female newborns. Girls with monosomy X commonly have heart defects, growth delays, infertility and may have minor learning difficulties. It is common for pregnancies with monosomy X to end in miscarriage or stillbirth. Klinefelter syndrome (XXY)* is caused by an extra X chromosome in males. It affects between 1 in 500 and 1 in 1,000 males. Children with Klinefelter syndrome commonly have delayed or absent puberty, learning difficulties, and tall stature. Most males with Klinefelter syndrome are infertile. XYY syndrome or XXX syndrome* are caused by an extra Y chromosome in males (XYY) or an extra X chromosome in females (XXX). It affects about 1 in 1,000 newborns. Children with XYY syndrome can have tall stature and an increased risk for learning difficulties or delayed motor skills. Fertility is not usually affected and some individuals have no symptoms at all. DiGeorge syndrome (22q11.2 deletion) is caused by a small missing piece of chromosome 22. It affects from 1 in 2,000 to 1 in 4,000 newborns, and is often not diagnosed for years. It results in poor development in several body systems, and can include growth delays, feeding problems, congenital heart disease, gastrointestinal difficulties, breathing concerns, immune deficiencies, and many other issues. Early diagnosis is the song to properly addressing the issues. * May be included in the test. Cannot be evaluated in twin pregnancies. screening helps you prepare for life While most babies are born healthy, some will be born with a chromosomal disorder. Knowing about the health of the baby during allows you to make the most informed choices for your family. This information can help guide the management of the , and could also give you critical time to prepare--physically, financially, and emotionally--for the of a child with extra needs. Carrier Screening What is carrier screening? Carrier screening is a type of genetic test that can tell you whether you carry a gene for certain genetic disorders. When it is done before or during , it allows you to find out the chances of having a child with a genetic disorder. What is a carrier? For some genetic disorders, it takes two genes for a person to have the disorder. A carrier is a person who has only one gene for a disorder. Carriers usually do not have symptoms or have only mild symptoms. Because they often do not know that they have a gene for a disorder, they can pass the gene on to their children. What are the chances of having a child with a genetic disorder? If both parents are carriers of a recessive gene for a disorder, there is a 25% (1-in-4) chance that their children will get the gene from each parent and will have the disorder. There is a 50% (1-in-2) chance that the children will be carriers of the disorder--just like the carrier parents. If only one parent is a carrier, there is a 50% (1-in-2) chance that the child will be a carrier of the disorder. How is carrier screening done? Carrier screening involves testing a sample of blood, saliva, or tissue from the inside of the cheek. Test results can be negative (you do not have the gene) or positive (you do have the gene). Typically, the partner who is most likely to be a carrier is tested first. If test results show that the first partner is not a carrier, then no additional testing is needed. If test results show that the first partner is a carrier, the other partner is tested. Once you have had a carrier screening test for a specific disorder, you do not need to be tested again for that disorder. When vulcan crewmember screening be done? Some people decide to have carrier screening before having children. Carrier screening also can be done during . Getting tested before gives you a greater range of options and more time to make decisions. Do I have to have carrier screening? Carrier screening is a voluntary decision. You can choose to have carrier screening, or you can choose not to. There is no right or wrong choice. What carrier screening tests are available? We offer a carrier screening panel for 14 diseases. This test is called Horizon If you re an expectant parent, or thinking about starting a family, you probably want to do everything you can to prepare. This test provides a closer look at your genes, to see if you are at risk of passing a hereditary genetic disorder to your child. The Panel checks for carrier status of three of the most common genetic disorders that can cause serious health problems, intellectual disability, or a shorter life. How accurate is carrier screening? No test is perfect. In a small number of cases, test results can be wrong. A negative test result when you have a gene for the disorder tested is called a false-negative result. A positive test result when you do not have a gene for a disorder is called a false-positive result. Also, because carrier screening looks for only a limited number of genes, it is possible that you are a carrier of a genetic disorder even if your test results are negative.. Copyright December 2016 by the [place] [employer] Low Risk Medications This is a listing of low risk, over the counter medication that you may take during your for the following symptoms: Cough, Cold, Congestion Benadryl Sudafed: brand name or generic (pseudoephedrine), buy the one you have to get behind the pharmacy counter and show your transfer driver's license to purchase WARNING! Do NOT take Sudafed if you have high blood pressure Robitussin Mucinex Any throat or cough drops, or sprays Chlor-Trimeton Vicks Nasal Sprays [place] Nasal Retsof (saline nose spray) Allergy Medication Zyrtec, Claritin Pain Reliever and Fever Music Specialist Tylenol, Extra Strength Tylenol, Acetaminophen, Panadol, Tempra, Anacin Aspirin Free Antacids Maalox, Maalox Plus, Mylanta, Mylanta II, Riopan, Riopan Plus, Tums, Rolaids, Gaviscon, Pepcid, Zantac Stool Softeners Colace, Surfak, Metamucil, Citrucel, Fibercon Constipation Mineral Oil, Milk of Magnesia, Miralax Increase fluid and fiber! Nausea Unisom sleep tabs 25 mg (Doxylamine) take one each evening and Vitamin B-6 (25 mg) take 3 times per day Tc capsules, Tc tea, Natural gingerale Diarrhea Imodium A/D, Pedialyte, Rehydrate, Gatorade, BRAT diet -bananas, rice, applesauce and toast NOTE: If diarrhea persists more than two days, or if bloody, call the office! Gas Beano, Gas-X (simethicone) Sleep Aid Tylenol PM, Benadryl, Sleepy Time Tea Nausea and Vomiting in How common is nausea and vomiting of ? Nausea and vomiting of is a very common condition. Although nausea and vomiting of often is called morning sickness, it can occur at any time of the day. Nausea and vomiting of usually is not harmful to the developing baby, but it can have a serious effect on your life, including your ability to work or do your normal daily activities. When does nausea and vomiting of start? Nausea and vomiting of usually starts before 9 weeks of . For most women, it goes away by the second trimester (14 weeks of ). For some women, it lasts for several weeks or months. For a few women, it lasts throughout the entire . What is the difference between mild and severe nausea and vomiting of ? Some women feel nauseated for a short time each day and may vomit once or twice. This usually is defined as mild nausea and vomiting of . In more severe cases, nausea lasts several hours each day and vomiting occurs more frequently. Deciding to seek treatment depends on how much nausea and vomiting of affects your life and causes you concern, not whether your condition is mild or severe. What is hyperemesis gravidarum? Hyperemesis gravidarum is the most severe form of nausea and vomiting of . It occurs in up to 3% of pregnancies. This condition may be diagnosed when a woman has lost 5% of her prepregnancy weight and has other problems related to dehydration (loss of body fluids). Women with hyperemesis gravidarum need treatment to stop their vomiting and restore body fluids. Sometimes treatment in a hospital is needed. Am I at risk of severe nausea and vomiting of ? If you have any of the following factors, your risk of severe nausea and vomiting of may be increased: Being with more than one baby (multiple ) Past with nausea and vomiting (either mild or severe) Your mother or sister had severe nausea and vomiting of History of motion sickness or migraines Being with a female fetus Could nausea and vomiting during be caused by another medical condition? Some medical conditions can cause nausea and vomiting during . These include an ulcer, food-related illness, thyroid disease, or gallbladder disease. Your stem shaper may suspect that you have one of these conditions if you have signs or symptoms that do not usually occur with nausea and vomiting of : Nausea and vomiting that occurs for the first time after 9 weeks of Abdominal pain or tenderness Fever Headache Enlarged thyroid gland (swelling in the front of the neck) Can nausea and vomiting of affect my baby? Having nausea and vomiting of usually does not harm your health or your baby s health. It does not mean your baby is sick. It can become more of a problem if you cannot keep down any food or fluids and begin to lose weight. When this happens, it sometimes can affect the baby s weight at . You also can develop problems with your thyroid, liver, and fluid balance. When is the best time to treat nausea and vomiting of ? Because severe nausea and vomiting of is hard to treat and can cause health problems, many experts recommend early treatment so that it does not become severe. What can I do to feel better if I have nausea and vomiting of ? Diet and lifestyle changes may help you feel better. You may need to try more than one of these suggestions: Take a multivitamin. Try eating dry toast or crackers in the morning before you get out of bed to avoid moving around on an empty stomach. Drink fluids often. Avoid smells that bother you. Eat small, frequent meals instead of three large meals. Try bland foods. For example, the LENNOX diet (bananas, rice, applesauce, toast, and tea) is low in fat and easy to digest. Try tc inez made with real tc, tc tea made from fresh grated tc, tc capsules, and tc candies. If you do vomit a lot, it can cause some of your tooth enamel to wear away. This happens because your stomach contains a lot of acid. Rinsing your mouth with a teaspoon of baking soda dissolved in a cup of water may help neutralize the acid and protect your teeth. Is there medical treatment for nausea and vomiting of ? If diet and lifestyle changes do not help your symptoms, or if you have severe nausea and vomiting of , medical treatment may be needed. If other medical conditions are ruled out, certain medications can be given to treat nausea and vomiting of : Vitamin B6 and doxylamine--Vitamin B6 is a safe, [id number] treatment that may be tried first. Doxylamine, a medication found in mtcj-gfj-[id number] sleep aids, may be added if vitamin B6 alone does not relieve symptoms. A prescription drug that combines vitamin B6 and doxylamine is available. Both drugs--taken alone or together--have been found to be safe to take during and have no harmful effects on the baby. Try Vitamin B6 25 mg, take it 3 times per day. Unisom sleep tablet 25 mg (active ingredient doxylamine), take one per day before bed. These won't help if just taken as needed. They should be taken daily be most effective. Antiemetic drugs--If vitamin B6 and doxylamine do not work, antiemetic drugs may be prescribed. These drugs prevent vomiting. Many antiemetic drugs have been shown to be safe to use during . Others have conflicting or limited safety information. You and your stem shaper or other members of your health care team can discuss all of these factors to determine the best treatment for your personal situation. What may happen if my nausea and vomiting is severe or I have hyperemesis gravidarum? You may need to stay in the hospital until your symptoms are under control. Lab tests may be done to check how your liver is working. If you are dehydrated from loss of fluids, you may receive fluids and vitamins through an intravenous line. If your vomiting cannot be controlled, you may need additional medication. If you continue to lose weight, sometimes tube feeding is recommended to ensure that you and your baby are getting enough nutrients. If you have further questions, contact your healthcare provider. Copyright August 2015 by the [employer] = Information: Do's and Don'ts Even with all the valerie and anticipation can bring, it is not uncommon for a [id number] to have some questions and concerns -- not only about changes to expect throughout her , but also concerns regarding the care of her body to ensure the health of her unborn child. Listed below, you will find some additional information that covers how to care for your body while you are . Do: Plan for weight gain Weight gain during varies from woman to woman and depends on body type. Each woman should talk with her care provider about the appropriate amount of weight gain, as well as diet and exercise. During your , normal weight gain of 0-5 pounds in the first 20 weeks is normal. Most women will gain about a pound a week between 20-40 weeks . However, if your BMI is above or below normal, the following recommendation should be followed: Underweight - BMI Less than 18: Total weight gain 28-40 lbs. Normal Weight - BMI 19-25: Total weight gain 25-35 lbs Overweight - BMI 26-30: Total weight gain 15-25 lbs Obese - BMI over 30: Total weight gain 11-20 lbs If you are having trouble trying to figure out a diet that works for you, please let us know and we can schedule a nutrition consultation for you with our operating room registered nurse. Do: Maintain a balanced diet According to the FDA, about 300 extra calories are needed daily to maintain a healthy . These calories should come from a balanced diet of protein, fruits, vegetables, and whole grains, with sweets and fats kept to a minimum. A healthy, well-balanced diet during can also help to minimize some symptoms such as nausea and constipation. The song to a healthy is making sure you have a good nutrient dense diet. This means that the foods you eat have a low amount of calories and sugars and a high amount of vitamins, minerals and protein. Common examples of nutrient dense foods are colorful fruits and vegetables especially those with dark, rich colors such as leafy green vegetables, berries and carrots. Whole grains, nuts and seeds are also considered nutrient dense. During your , You and your baby need about 60-100 grams of protein every day. Protein rich foods include meat, fish, eggs, almonds cottage cheese, [place] yogurt, low fat cheese and low fat milk. Most women notice that if they eat 60-100 grams of protein every day and eat 7-12 cups of veggies and fruit every day that they don't crave sweet, simple carbohydrates such as bread, bagels, cookies, chips and sugary foods. Simple carbohydrates need to be eaten in moderation throughout as excess carbohydrate intake can cause excess weight gain which can increase your risk for gestational diabetes, gestational hypertension and excessive growth of the baby Fluid intake is also an important part of healthy nutrition. Women can take in enough fluids by drinking 6 to 8 glasses of water each day, in addition to the fluids in juices and soups. An expectant mother should talk with her health care provider or cash processor about restricting her intake of caffeine and artificial sweeteners. All alcohol should be avoided in . Do: Exercise during : Regular exercise during , with the approval of your physician or cash processor, can often help to minimize the daily physical discomforts and help with the recovery after the baby is born. There is evidence that physical activity may be especially beneficial for women with gestational diabetes. Women who exercised and were physically fit before can safely continue exercising throughout the . Women who were inactive before or who have medical or complications should consult with their physician or cash processor before beginning any exercise during . All women should be evaluated by their physician or cash processor before beginning or continuing an exercise program while . Exercise for women may not be safe if they have any of the following conditions: labor in current or past pregnancies Vaginal bleeding Cervical problems Leaking of amniotic fluid Shortness of breath Dizziness and/or fainting Decreased activity or other complications Increased heart rate (tachycardia) Certain health problems, such as high blood pressure or heart disease Types of exercise to avoid during : Horseback riding Water skiing Scuba diving High altitude skiing Contact sports Any exercise that can cause a serious fall Exercising on your back after the first trimester (because of reduced blood flow to the uterus) Vigorous exercise in hot, humid weather, as women are less efficient at exchanging heat Exercise involving the Valsalva maneuver (holding one's breath during exertion), which can increase intra-abdominal pressure on the uterus Don't: Expose yourself to unnecessary risks if you work during Many women work during without any complications. Being able to work safely, in some cases, until the day of delivery depends on the type of work performed and the taaiuy-yv-hy's medical condition. Taking proper precautions to avoid these risks on the job can help keep you and your baby healthy throughout the . The [place] [employer] recommends the following for working women: Take a break every few hours Take a longer meal break every four hours Drink plenty of fluids while on the job Vary work positions continuously, from sitting to standing and walking Minimize heavy lifting and bending Proper lifting techniques during Weight gain during adds strain to the back. Proper lifting can help reduce the strain and prevent injury. When lifting, a woman should keep in mind the following recommendations: Stand with feet shoulder-width apart Tuck in the buttocks Bend at the knees Lift with the arms and legs, not the back Limit the amount and weight of the items lifted Computer use in Today, many occupations involve the use of a computer. Computers have also been associated with many complaints, such as neck, wrist, hand, shoulder, and back pain from prolonged sitting in the same position and eyestrain. To alleviate these symptoms, the following may help: Take frequent work breaks Use detachable keyboards and adjustable chairs and tables Use non-reflective glass on the screen, adjust the screen lighting and contrast, and install indirect lighting Do: Discuss sex during with your health care provider In most cases, sex during is safe. In fact, with your health care provider's approval, sexual relations can continue until delivery. However, fluctuating hormone levels and certain symptoms such as nausea and tiredness can temporarily reduce a woman's libido (sex drive). In addition, visible changes in the woman's body may affect sexual desire. Always consult your healthcare provider concerning any questions you may have about sex during . Sexual intercourse may have to be avoided if the following symptoms occur: Vaginal bleeding Pain Leaking of amniotic fluid (the fluid surrounding your baby in the womb) Contractions Do: Discuss the best sleeping positions with your health care provider As the fetus grows within the uterus, lying on your back is not recommended due to pressure on the inferior vena cava, a major vein that returns blood from the lower body to the heart. In addition, the increased pressure on the back and intestines can cause discomfort. The best sleeping position for a woman is on her side, because it allows for maximum blood flow to the fetus and improves kidney function in the mother. Improved kidney flow helps to reduce any swelling. Placing a pillow between the knees can help a woman sleep more comfortably on her side. How to contact us: During office hours please call the office: [phone] After hours answering service phone number: [phone] Please call if you experience any of the following: LABOR: Contractions that you feel 4-6 times per hour. It may feel like lower abdominal cramping, or low back pain that comes and goes with stomach tightening. If you notice this, lie down on your side and drink 2 bottles of water. Rest and fluids is normally enough to calm things down. If after 1-2 hours the contractions don't get better, then call us. BLEEDING: Blood tinged mucous discharge is not uncommon, especially if you have had an exam in the office recently or sexual intercourse. However if you are bleeding like a period, you should call us WATER BREAKS: You may experience in increase in vaginal secretions near the time of labor, but if you think your water broke, please call us. DECREASED MOVEMENT: Baby movements change in the last trimester. They tend to be not as vigorous, and change to nudges and rolls. But, if you feel like these movement are not normal, please call our office during office hours or the answering service after hours. [facility] Midwifery Service Before you bring your baby into the world, a lot of decisions have to be made. One of those decisions is whether or not to use a Certified Nurse Weaver Hand (CNM). Certified Nurse Midwives are registered nurses who have received a master s degree and advanced training in women s health and midwifery. They passed a national certification examination and are licensed in the [facility]. Certified Nurse Midwives write prescriptions and provide a variety of services, including: care Labor & delivery care Care after Disease prevention Family planning assistance Gynecological exams Health maintenance counseling Menopausal management Preconception care CNMs work to support and educate women through all phases of and delivery, and support both medicated and non-medicated birthing methods. They are especially skilled at using alternative birthing positions, birthing balls, water therapy, and massage. If you desire an epidural, this is still an option if you have a Certified Nurse Weaver Hand. You will work with your CNM to determine the best delivery options for you. However, if medical intervention is needed, your cash processor will take the steps necessary to ensure a healthy outcome for you and your baby. Certified Nurse Midwives are always security professionals with a physician in case intervention is needed, for instance a Section, vacuum or forceps assisted . Our physician would perform those procedures and the CNM remains present with you for support. The laboring woman receives the best possible care with this team based approach. The CNM section rate at [facility] is only 8-9%, which means most mothers have a normal vaginal . [facility] offers the largest midwifery team in the region. This team is available any time, day or night for your delivery. The cash processor that is security professionals the day you labor will be the one who attends the . Throughout your you have the option to meet the various midwives or simply go to the office that is most convenient for you. Not all midwives see clients in every office. Agneles Nettles, DROP MACHINE OPERATOR-CNM Thalia Davey, DROP MACHINE OPERATOR-CNM Cyndi Keller, DROP MACHINE OPERATOR-CNM Leah Vandana, DROP MACHINE OPERATOR-CNM Raiza Vogel, DROP MACHINE OPERATOR-CNM Bisi Martin DROP MACHINE OPERATOR-CNM Kelley Aceves, DROP MACHINE OPERATOR-CNM Norma Gibson, DROP MACHINE OPERATOR-CNM * Natalie Freedman, DROP MACHINE OPERATOR-CNM Becca Valencia, DROP MACHINE OPERATOR-CNM Love Montgomery DROP MACHINE OPERATOR-CNM Keyonna Arana, DROP MACHINE OPERATOR-CNM * Sydnie Atkins, DROP MACHINE OPERATOR-CNM * *Office-based only midwives, do not attend births Currently, 07/04 midwifery coverage while in labor is only available at [facility]. Do you want more information about midwives? Discover more information for you and your family at the [employer] ([employer]) web site at [email or web address]. Check out the video about Midwives and the Care They Provide at http://bit.[email or web address]-vide o Low Risk Medications This is a listing of low risk, over the counter medications that you may take during your for the following symptoms: Cough, Cold, Congestion Benadryl: Allergy/Cold, Allergy Congestion Tylenol: Cold Non-drowsy, Multi Symptom Cold Complete, Cold Severe Congestion Non-drowsy, Sinus Non-drowsy, Flu Non-drowsy Sudafed: Cold and Sinus, Cold and Cough, Non-drying Sinus, Severe Cold Formula Sinus WARNING! Do NOT take Sudafed if you have high blood pressure Robitussin Mucinex Any throat or cough drops, or sprays Vicks Nasal Sprays [place] Nasal Retsof (saline nose spray) Allergy Medication Zyrtec, Claritin Pain Reliever and Fever Music Specialist Tylenol, Extra Strength Tylenol, Acetaminophen, Panadol, Tempra, Anacin Aspirin Free Antacids Maalox, Maalox Plus, Mylanta, Mylanta II, Riopan, Riopan Plus, Tums, Rolaids, Gaviscon, Pepcid, Zantac Stool Softeners Colace, Surfak, Metamucil, Citrucel, Fibercon Constipation Mineral Oil, Milk of Magnesia, Miralax Increase fluid and fiber! Nausea Unisom sleep tabs (Doxylamine) and vitamin B-6 (25mg) Take morning and night Tc capsules, Tc tea, Natural tc inez Diarrhea Imodium A/D, Pedialyte, Rehydrate, Gatorade BRAT diet - bananas, rice, applesauce and toast NOTE: If diarrhea persists more than two days, or if bloody, call the office! Gas Beano, Gas-X (simethicone) Sleep Aid Tylenol PM, Benadryl, Sleep Time Tea documented in this encounter [facility] 04-02-2023 Telephone encounter Note Can you please let patient know the gummy prior auth was denied. And it doesn't look like any other chewable or gummy will be covered. She can purchase OTC gummy vitamins or take flinstones Childrens vitamins with folic acid for now. [facility] 04-02-2023 Miscellaneous Notes Can you please let patient know the gummy prior auth was denied. And it doesn't look like any other chewable or gummy will be covered. She can purchase OTC gummy vitamins or take flinstones Childrens vitamins with folic acid for now. Images from the original note were not included. [place] denied PriorAuth initiated via CoverMyMeds for Vitamin. documented in this encounter [facility] 04-01-2023 Telephone encounter Note Images from the original note were not included. Shankar denied [facility] 04-01-2023 Miscellaneous Notes Images from the original note were not included. Shankar denied PriorAuth initiated via CoverMyMeds for Vitamin. documented in this encounter [facility] 03-27-2023 Telephone encounter Note PriorAuth initiated via CoverMyMeds for Vitamin. [facility] 03-26-2023 History of Presen t illness Narrative Chief Complaint Patient presents with Ultrasound D&V US FOLLOW UP Patient's last menstrual period was 01/25/2023 (exact date). History: Past Medical History: Diagnosis Date Abnormal Pap smear of cervix abnormal cells reported per patient Allergic rhinitis Anxiety Breast disorder fibrocystic breast Depression Gastritis Past Surgical History: Procedure Laterality Date WISDOM TOOTH EXTRACTION No family history on file. Social History Socioeconomic History Marital status: Tobacco Use Smoking status: Former Types: Cigarettes Quit date: 08/28/2020 Years since quittin.5 Smokeless tobacco: Never Vaping Use Vaping Use: Former Substance and Sexual Activity Alcohol use: Not Currently Drug use: Never Sexual activity: Yes Comment: Social History Narrative Merged History Encounter Allergies: No Known Allergies Medications: Current Outpatient Medications on File Prior to Visit Medication Sig Dispense Refill Cetirizine HCl (ZYRTEC ALLERGY PO) Take by mouth. famotidine (Pepcid) 20 MG tablet Take 20 mg by mouth 2 times daily. fluticasone (Flonase) 50 MCG/ACT nasal spray Administer 2 sprays into affected nostril(s) in the morning. MV-Min-Fe Fum-FA-DHA ( 1 PO) Take by mouth. ondansetron ODT (Zofran-ODT) 4 MG disintegrating tablet Take 1 tablet (4 mg) by mouth every 8 hours as needed for nausea or vomiting. 30 tablet 1 [DISCONTINUED] b complex vitamins capsule Take 1 capsule by mouth daily. [DISCONTINUED] Collagen Hydrolysate, Bovine, powder [DISCONTINUED] metoclopramide (Reglan) 10 MG tablet Take 1 tablet (10 mg) by mouth every 6 hours as needed (Nausea and vomiting). 30 tablet 0 No current facility-administered medications on file prior to visit. HPI: Patient presents today for follow-up D&V US accompanied by her mother Elizabeth. Prelim US results reviewed with patient and her mother: Single, live IUP, 8w1d by ultrasound. Cardiac activity and movement are present. This is consistent with the EDC of 11/01/23. H/O PTL and PTD at 34 weeks and due to ascites. Baby had hydronephrosis, low confluence persistent urogenital with surgical correction, PDA (no surgery) and Malrotation intestine midgut surgically repaired. Discussed referral to [facility]. Patient declined. Wants to treat as a normal . If US is abnormal in the future will consider referral. Dose not want anatomy US done at [facility]. Patient would like genetic testing but only wants notified of gender of baby and not the actual genetic results. + N/V continue. B6 and unisom did not work. Anxious about starting other antinausea meds d/t potential side effects for her and baby. Will consider zofran. Has a RX at home. Denies bleeding or pain. ROS: Review of Systems Constitutional: Positive for fatigue. Gastrointestinal: Positive for nausea and vomiting. Genitourinary: Negative for difficulty urinating, dysuria, frequency, menstrual problem, pelvic pain, vaginal bleeding, vaginal discharge and vaginal pain. BP 115/79 (BP Location: Left arm, Patient Position: Sitting, BP Cuff Size: Small adult) Pulse 84 Temp 36.2 C (97.1 F) (Temporal) Wt 161 lb 6.4 oz (73.2 kg) LMP 01/25/2023 (Exact Date) BMI 24.54 kg/m Physical Exam Vitals reviewed. Constitutional: Appearance: Normal appearance. Neurological: Mental Status: She is alert. Psychiatric: Mood and Affect: Mood is anxious. Behavior: Behavior normal. Thought Content: Thought content normal. Judgment: Judgment normal. Assessment and Plan: Mauro was seen today for ultrasound. 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 Discussed referral to [facility]. Patient declined. Wants to treat as a normal . If US is abnormal in the future will consider referral. Dose not want anatomy US done at [facility]. Patient would like genetic testing but only wants notified of gender of baby and not the actual genetic results. Will try Zofran when needed. Discussed alfalfa and info given. Discussed diet changes, sea bands, tc, peppermint cinnamon etc. Chewable PNV sent to pharmacy. RTO 2 weeks IPV. Advised patient to contact the office with any vaginal bleeding, pelvic pain or persistent or worsening N/V. Patient agrees with plan of care. Follow up in about 2 weeks (around 04/09/2023) for Initial Visit. documented in this encounter [facility] 02-27-2023 History of Presen t illness Narrative Mauro Ba 02/27/2023 Date Of : 1990 Chief Complaint Patient presents with Amenorrhea LMP 01/25/2023. +Home test. HPI: Mauro Ba is a 32 y.o. female who presents today for missed menses and positive HPT accompanied by her daughter Kelvin. Had scant spotting on Friday. None since. Off and on cramping noted. H/O PTL and PTD at 34 weeks and due to ascites. Baby had hydronephrosis, low confluence persistent urogenital with surgical correction, PDA (no surgery) and Malrotation intestine midgut surgically repaired. Taking biotin, vit B complex and collagen supplements. Unable to tolerate PNV. Patient's last menstrual period was 01/25/2023 (exact date). EDC based on LMP: 11/01/23 Estimated weeks gestation: 4 week(s) and 5 day(s) Average Cycle length: monthly Vaginal bleeding:no Pelvic pain: no Currently taking a vitamin: no Has nausea and/or vomiting: no Fatigue: yes Breast tenderness: yes Smoking: no Takes Medications: Yes see medication list Review of Systems Constitutional: Positive for fatigue. Gastrointestinal: Negative for nausea and vomiting. Genitourinary: Negative for difficulty urinating, dysuria, frequency, menstrual problem, pelvic pain, vaginal bleeding, vaginal discharge and vaginal pain. OB History Para Term AB Living 2 1 0 1 0 1 SAB IAB Ectopic Multiple Live Births 0 0 0 0 1 # Outcome Date GA Lbr Shahram/2nd Weight Sex Delivery Anes PTL Lv 2 04/11/21 34w5d F CS-LTranv EPI Y WILDA Name: ANNALISE, MAURO 1 Past Medical History: Diagnosis Date Abnormal Pap smear of cervix abnormal cells reported per patient Allergic rhinitis Anxiety Breast disorder fibrocystic breast Depression Gastritis Past Surgical History: Procedure Laterality Date WISDOM TOOTH EXTRACTION No family history on file. Social History Socioeconomic History Marital status: Spouse name: Not on file Number of children: Not on file Years of education: Not on file Highest education level: Not on file Occupational History Not on file Tobacco Use Smoking status: Former Types: Cigarettes Quit date: 08/28/2020 Years since quittin.5 Smokeless tobacco: Never Vaping Use Vaping Use: Never used Substance and Sexual Activity Alcohol use: Not Currently Drug use: Never Sexual activity: Not on file Other Topics Concern Not on file Social History Narrative Merged History Encounter Social Determinants of Health Financial Resource Strain: Not on file Food Insecurity: Not on file Transportation Needs: Not on file Physical Activity: Not on file Stress: Not on file Social Connections: Not on file Intimate Partner Violence: Not on file Housing Stability: Not on file MEDICATIONS: Current Outpatient Medications Medication Sig Dispense Refill b complex vitamins capsule Take 1 capsule by mouth daily. Cetirizine HCl (ZYRTEC ALLERGY PO) Take by mouth. Collagen Hydrolysate, Bovine, powder famotidine (Pepcid) 20 MG tablet Take 20 mg by mouth 2 times daily. fluticasone (Flonase) 50 MCG/ACT nasal spray Administer 2 sprays into affected nostril(s) in the morning. No current facility-administered medications for this visit. ALLERGIES: Allergies as of 02/27/2023 (No Known Allergies) Physical Exam Vitals reviewed. Constitutional: Appearance: Normal appearance. Neurological: Mental Status: She is alert. Psychiatric: Mood and Affect: Mood normal. Behavior: Behavior normal. Thought Content: Thought content normal. Judgment: Judgment normal. BP 115/66 (BP Location: Left arm, Patient Position: Sitting, BP Cuff Size: Adult) Pulse 83 Wt 166 lb (75.3 kg) LMP 01/25/2023 (Exact Date) BMI 25.24 kg/m DIAGNOSIS: Mauro was seen today for amenorrhea. Diagnoses and all orders for this visit: with inconclusive viability, single or unspecified fetus (Primary) - hCG, quantitative; Future - US OB transvaginal; Future - hCG, quantitative History of anomaly in prior , currently - Ambulatory referral to Perinatology; Future PLAN: Quant HCG ordered. Will notify patient of quant HCG results. She is aware that she made need repeated quant HCG's every 48hours depending on what quant result is. Schedule D&V US. Reviewed relief measures for nausea and vomiting including over the counter B6 and doxylamine. OB med list to patients Mychart. Referral to [facility] for last baby born with anomalies. Advised patient to contact the office with N/V Not improved or worsening), vaginal spotting/bleeding or pelvic pain prior to next appointment. Patient agrees with plan of care. Follow up in about 2 weeks (around 03/13/2023) for US for dating and viability, Office visit. CIELO Gordon CNP documented in this encounter [facility] 02-27-2023 Instructions CIELO Schaefer CNP - 02/27/2023 11:30 AM EDT Obstetrical Calendar Weeks Gestation: Discussion and Testing 4-8 weeks - Visit with provider to establish hcg blood levels and order ultrasound. 6-13 Weeks - Dating and Viability Ultrasound and Visit with provider to discuss US results. 10-13 weeks - Initial OB intake and physical with a [facility] or Nurse Practitioner. Obtain complete medical, genetic and obstetrical history blood work ordered education Discuss testing options: 1st trimester screening (provides a more accurate assessment of a woman s risk for carrying a baby with Down Syndrome, Trisomy 13 and Trisomy 18. Carrier Screening for Cystic Fibrosis, Spinal Muscular Atrophy or Fragile x. AFP for Neural Tube Defect. Other tests if appropriate due to risk factors. Discuss Physician and Nurse [facility] options Discuss hospital for delivery 10-14 Weeks - Visit with OB Provider Review Results of Labs Discuss 1st Trimester Screening or Free Cell DNA if you wish to pursue Discuss indications or need for MFM referral if High Risk, or if need for Amniocentesis or CVS (Chorionic villus sampling) test to diagnose chromosomal abnormalities At Each visit - Check Blood pressure, Check urine, check weight and heart tones as indicated 12-16 weeks - Visit with OB Provider Discuss 2nd trimester screening if desired Check blood pressure, urine, weight and heart tones Review OB provider options Schedule anatomy US for 18-20 weeks 18-20 weeks - Anatomy US and Visit with Provider Check weight, blood pressure and urine Listen to heart beat and check uterine size Review results of anatomy US 22-24 weeks - Visit with OB Provider Check weight, blood pressure and urine Listen to heart beat and check uterine size Discuss 1 hour glucose test for gestational diabetes Order blood work for anemia and glucose test to be done around 26-28 weeks Order Antibody screen and rhogam IF Rh negative blood type 26-28 weeks - Visit with OB Provider Check weight, blood pressure and urine Listen to heart beat and check uterine size Review results of glucose test and anemia test if done Discuss plans, preregistration, choosing slat basket maker machine, taking childbirth classes 30 - 36 weeks - Visits with OB provider every 2 weeks Check weight, blood pressure and urine Listen to heart beat and check uterine size High risk testing, if needed, will begin weekly - Please schedule all of theses ahead of time. Discuss circumcision, breast feeding, preregistration. Discuss plans, consider CNM or physician for delivery. 36-40 weeks - Visits with Ob provider every week Check weight, blood pressure and urine Listen to heart beat and check uterine size Obtain vaginal/rectal culture for Group B Strep Cervical exam 41 weeks - Visit with OB provider Discuss option for post term testing with Non-Stress test and [facility] Discuss and schedule induction of labor prior to 42 weeks Genetic Screening Tests What is genetic testing? genetic testing gives [id number] information about whether their fetus has certain genetic disorders. What are genetic disorders? Genetic disorders are caused by changes in a person s genes or chromosomes. Aneuploidy is a condition in which there are missing or extra chromosomes. In a trisomy, there is an extra chromosome. In a monosomy, a chromosome is missing. Inherited disorders are caused by changes in genes called mutations. Inherited disorders include sickle cell disease, cystic fibrosis, Viet-Sachs disease, and many others. In most cases, both parents must carry the same gene to have an affected child. What are genetic screening tests? These tests can tell you the chances that your fetus has an aneuploidy and a few additional disorders. This FAQ focuses on these tests. What are the different types of genetic screening tests? Screening tests can tell you your risk of having a baby with certain disorders. They include carrier screening and genetic screening tests: Carrier screening is done on parents (or those just thinking about becoming parents) using a blood sample or tissue sample swabbed from inside the cheek. These tests are used to find out whether a person carries a gene for certain inherited disorders. Carrier screening can be done before or during . genetic screening tests of the woman s blood and findings from ultrasound exams can screen the fetus for aneuploidy; defects of the brain and spine called neural tube defects; and some defects of the abdomen, heart, and facial features. This focuses on these tests. They include first-trimester screening and second-trimester screening What is first-trimester screening? Aneupoidy screening or NIPT (non-invasive testing) is done with maternal blood taken sometime after 12weeks 4 days. This test helps determine the risk for trisomy 21, trisomy 13 and trisomy 18. It also detects abnormalities of the sex chromosomes such as monosomy X and Turners syndrome. What is second-trimester screening? Second-trimester screening includes the following tests: The quad or quadruple blood test measures the levels of four different substances in your blood. The quad test screens for Down syndrome, trisomy 18, and neural tube defects. It is done between 15 weeks and 22 weeks of . There is an option to only measure the alpha fetoprotein (AFP) level with blood work which could screen for only neural tube defects. An ultrasound exam done between 18 weeks and 20 weeks of checks for major physical defects in the brain and spine, facial features, abdomen, heart, and limbs. What do the different results of screening tests mean? Results of blood screening tests for aneuploidy are reported as the level of risk that the disorder might be present: A positive screening test result for aneuploidy means that your fetus is at higher risk of having the disorder compared with the general population. It does not mean that your fetus definitely has the disorder. A negative result means that your fetus is at lower risk of having the disorder compared with the general population. It does not rule out the possibility that your fetus has the disorder. What should I consider when deciding whether to have genetic testing? It is your choice whether to have testing. Your personal beliefs and values are important factors in the decision about testing. It can be helpful to think about how you would use the results of screening tests in your care. Remember that a positive screening test tells you only that you are at higher risk of having a baby with Down syndrome or another aneuploidy. A diagnostic test should be done if you want to know a more certain result. Some parents want to know beforehand that their baby will be born with a genetic disorder. This knowledge gives parents time to learn about the disorder and plan for the medical care that the child may need. Some parents may decide to end the in certain situations. Other parents do not want to know this information before the child is born. In this case, you may decide not to have follow-up diagnostic testing if a screening test result is positive. Or you may decide not to have any testing at all. There is no right or wrong answer. Glossary Amniocentesis: A procedure in which a needle is used to withdraw and test a small amount of amniotic fluid and cells from the sac surrounding the fetus. Aneuploidy: Having an abnormal number of chromosomes. Carrier Screening: A test done on a person without signs or symptoms to find out whether he or she carries a gene for a genetic disorder. Chorionic Villus Sampling (CVS): A procedure in which a small sample of cells is taken from the placenta and tested. Cystic Fibrosis: An inherited disorder that causes problems in digestion and breathing. Down Syndrome: A genetic disorder that causes abnormal features of the face and body, medical problems such as heart defects, and intellectual disability. Most cases of Down syndrome are caused by an extra chromosome 21 (trisomy 21). Many children with Down syndrome live to adulthood. Monosomy: A condition in which there is a missing chromosome. Neural Tube Defects: defects that result from incomplete development of the brain, spinal cord, or their coverings. Nuchal Translucency Screening: A test in which the size of a collection of fluid at the back of the neck is measured by ultrasound to screen for certain defects, such as Down syndrome, trisomy 18, or heart defects. Screening Tests: Tests that look for possible signs of disease in people who do not have symptoms. Sickle Cell Disease: An inherited disorder in which red blood cells have a crescent shape, causing chronic anemia and episodes of pain. It occurs most often in Americans. Viet-Sachs Disease: An inherited defect that causes intellectual disability, blindness, seizures, and , usually by age 5 years. It most commonly affects people of [place] and [place], [place], and [place] descent, but it can occur in anyone. Trisomy 13 ([place] Syndrome): A chromosomal disorder that causes serious problems with the brain and heart as well as extra fingers and toes, cleft palate and lip, and other defects. Most infants with trisomy 13 within the first year of life. Trisomy 18 (Vogel Syndrome): A chromosomal disorder that causes severe intellectual disability and serious physical problems such as a small head, heart defects, and deafness. Most of those affected with trisomy 18 before or within the first month of life. Copyright March 2017 by the [employer] Panorama NIPT Screen Information As an expectant parent, you may want to learn everything you can about the health of your baby. The Panorama Screen checks for the most common chromosomal disorders, such as Down syndrome, Trisomy 18 and Trisomy 13 that could affect your baby s health. This noninvasive test requires only a blood draw, so it s safe for both mom and baby. This test looks at DNA from the that crosses into the mother s blood to screen for chromosomal disorders that can cause serious defects, intellectual disability, or other health problems. Any baby can be born with a chromosome disorder, which is usually caused by a random error of cell division very early in . As women get older, the chance of having a baby with a chromosome disorder goes up. However, young women can have babies with these conditions. How does noninvasive testing work? DNA is the blueprint of life. It carries all of the genetic information needed for our bodies to function. A section of DNA with a specific job is called a gene. DNA is packaged into bundles called chromosomes. Healthy humans have 23 pairs of chromosomes. Any more or less can lead to problems. DNA from the placenta naturally crosses into the mother s bloodstream as a progresses. For the test, a small sample of your blood is drawn and the DNA is analyzed to check for certain chromosomal disorders, which can cause serious defects, intellectual disability, or other health problems in the baby. What conditions can this test detect? Down syndrome (trisomy 21) is caused by an extra copy of chromosome 21. It affects about 1 in 700 newborns,and is the most common genetic cause of mild to moderate intellectual disability. Children with trisomy 21 commonly have typical facial features, and a higher risk for certain health problems, including heart defects, other defects, and hearing and vision problems. Vogel syndrome (trisomy 18) is caused by an extra copy of chromosome 18. It affects about 1 in 5,000 newborns. Children with trisomy 18 may have severe intellectual disability along with serious defects of the heart, brain, and other organs and usually survive less than one year. It is common for pregnancies with trisomy 18 to end in miscarriage or stillbirth. Patau syndrome (trisomy 13) is caused by an extra copy of chromosome 13. It affects about 1 in 16,000 newborns. Children with trisomy 13 may have severe intellectual disability and many serious defects (heart defects, extra fingers, cleft lip and palate, brain and abdominal wall defects) and usually survive less than one year. It is common for pregnancies with trisomy 13 to end in miscarriage or stillbirth. Ramos syndrome (monosomy X)* is caused by a missing X chromosome in females. It affects about 1 in 2,000 female newborns. Girls with monosomy X commonly have heart defects, growth delays, infertility and may have minor learning difficulties. It is common for pregnancies with monosomy X to end in miscarriage or stillbirth. Klinefelter syndrome (XXY)* is caused by an extra X chromosome in males. It affects between 1 in 500 and 1 in 1,000 males. Children with Klinefelter syndrome commonly have delayed or absent puberty, learning difficulties, and tall stature. Most males with Klinefelter syndrome are infertile. XYY syndrome or XXX syndrome* are caused by an extra Y chromosome in males (XYY) or an extra X chromosome in females (XXX). It affects about 1 in 1,000 newborns. Children with XYY syndrome can have tall stature and an increased risk for learning difficulties or delayed motor skills. Fertility is not usually affected and some individuals have no symptoms at all. DiGeorge syndrome (22q11.2 deletion) is caused by a small missing piece of chromosome 22. It affects from 1 in 2,000 to 1 in 4,000 newborns, and is often not diagnosed for years. It results in poor development in several body systems, and can include growth delays, feeding problems, congenital heart disease, gastrointestinal difficulties, breathing concerns, immune deficiencies, and many other issues. Early diagnosis is the song to properly addressing the issues. * May be included in the test. Cannot be evaluated in twin pregnancies. screening helps you prepare for life While most babies are born healthy, some will be born with a chromosomal disorder. Knowing about the health of the baby during allows you to make the most informed choices for your family. This information can help guide the management of the , and could also give you critical time to prepare--physically, financially, and emotionally--for the of a child with extra needs. Carrier Screening What is carrier screening? Carrier screening is a type of genetic test that can tell you whether you carry a gene for certain genetic disorders. When it is done before or during , it allows you to find out the chances of having a child with a genetic disorder. What is a carrier? For some genetic disorders, it takes two genes for a person to have the disorder. A carrier is a person who has only one gene for a disorder. Carriers usually do not have symptoms or have only mild symptoms. Because they often do not know that they have a gene for a disorder, they can pass the gene on to their children. What are the chances of having a child with a genetic disorder? If both parents are carriers of a recessive gene for a disorder, there is a 25% (1-in-4) chance that their children will get the gene from each parent and will have the disorder. There is a 50% (1-in-2) chance that the children will be carriers of the disorder--just like the carrier parents. If only one parent is a carrier, there is a 50% (1-in-2) chance that the child will be a carrier of the disorder. How is carrier screening done? Carrier screening involves testing a sample of blood, saliva, or tissue from the inside of the cheek. Test results can be negative (you do not have the gene) or positive (you do have the gene). Typically, the partner who is most likely to be a carrier is tested first. If test results show that the first partner is not a carrier, then no additional testing is needed. If test results show that the first partner is a carrier, the other partner is tested. Once you have had a carrier screening test for a specific disorder, you do not need to be tested again for that disorder. When vulcan crewmember screening be done? Some people decide to have carrier screening before having children. Carrier screening also can be done during . Getting tested before gives you a greater range of options and more time to make decisions. Do I have to have carrier screening? Carrier screening is a voluntary decision. You can choose to have carrier screening, or you can choose not to. There is no right or wrong choice. What carrier screening tests are available? We offer a carrier screening panel for 14 diseases. This test is called Horizon If you re an expectant parent, or thinking about starting a family, you probably want to do everything you can to prepare. This test provides a closer look at your genes, to see if you are at risk of passing a hereditary genetic disorder to your child. The Panel checks for carrier status of three of the most common genetic disorders that can cause serious health problems, intellectual disability, or a shorter life. How accurate is carrier screening? No test is perfect. In a small number of cases, test results can be wrong. A negative test result when you have a gene for the disorder tested is called a false-negative result. A positive test result when you do not have a gene for a disorder is called a false-positive result. Also, because carrier screening looks for only a limited number of genes, it is possible that you are a carrier of a genetic disorder even if your test results are negative.. Copyright December 2016 by the [place] [employer] Low Risk Medications This is a listing of low risk, over the counter medication that you may take during your for the following symptoms: Cough, Cold, Congestion Benadryl Sudafed: brand name or generic (pseudoephedrine), buy the one you have to get behind the pharmacy counter and show your transfer driver's license to purchase WARNING! Do NOT take Sudafed if you have high blood pressure Robitussin Mucinex Any throat or cough drops, or sprays Chlor-Trimeton Vicks Nasal Sprays [place] Nasal Retsof (saline nose spray) Allergy Medication Zyrtec, Claritin Pain Reliever and Fever Music Specialist Tylenol, Extra Strength Tylenol, Acetaminophen, Panadol, Tempra, Anacin Aspirin Free Antacids Maalox, Maalox Plus, Mylanta, Mylanta II, Riopan, Riopan Plus, Tums, Rolaids, Gaviscon, Pepcid, Zantac Stool Softeners Colace, Surfak, Metamucil, Citrucel, Fibercon Constipation Mineral Oil, Milk of Magnesia, Miralax Increase fluid and fiber! Nausea Unisom sleep tabs 25 mg (Doxylamine) take one each evening and Vitamin B-6 (25 mg) take 3 times per day Tc capsules, Tc tea, Natural gingerale Diarrhea Imodium A/D, Pedialyte, Rehydrate, Gatorade, BRAT diet -bananas, rice, applesauce and toast NOTE: If diarrhea persists more than two days, or if bloody, call the office! Gas Beano, Gas-X (simethicone) Sleep Aid Tylenol PM, Benadryl, Sleepy Time Tea Nausea and Vomiting in How common is nausea and vomiting of ? Nausea and vomiting of is a very common condition. Although nausea and vomiting of often is called morning sickness, it can occur at any time of the day. Nausea and vomiting of usually is not harmful to the developing baby, but it can have a serious effect on your life, including your ability to work or do your normal daily activities. When does nausea and vomiting of start? Nausea and vomiting of usually starts before 9 weeks of . For most women, it goes away by the second trimester (14 weeks of ). For some women, it lasts for several weeks or months. For a few women, it lasts throughout the entire . What is the difference between mild and severe nausea and vomiting of ? Some women feel nauseated for a short time each day and may vomit once or twice. This usually is defined as mild nausea and vomiting of . In more severe cases, nausea lasts several hours each day and vomiting occurs more frequently. Deciding to seek treatment depends on how much nausea and vomiting of affects your life and causes you concern, not whether your condition is mild or severe. What is hyperemesis gravidarum? Hyperemesis gravidarum is the most severe form of nausea and vomiting of . It occurs in up to 3% of pregnancies. This condition may be diagnosed when a woman has lost 5% of her prepregnancy weight and has other problems related to dehydration (loss of body fluids). Women with hyperemesis gravidarum need treatment to stop their vomiting and restore body fluids. Sometimes treatment in a hospital is needed. Am I at risk of severe nausea and vomiting of ? If you have any of the following factors, your risk of severe nausea and vomiting of may be increased: Being with more than one baby (multiple ) Past with nausea and vomiting (either mild or severe) Your mother or sister had severe nausea and vomiting of History of motion sickness or migraines Being with a female fetus Could nausea and vomiting during be caused by another medical condition? Some medical conditions can cause nausea and vomiting during . These include an ulcer, food-related illness, thyroid disease, or gallbladder disease. Your stem shaper may suspect that you have one of these conditions if you have signs or symptoms that do not usually occur with nausea and vomiting of : Nausea and vomiting that occurs for the first time after 9 weeks of Abdominal pain or tenderness Fever Headache Enlarged thyroid gland (swelling in the front of the neck) Can nausea and vomiting of affect my baby? Having nausea and vomiting of usually does not harm your health or your baby s health. It does not mean your baby is sick. It can become more of a problem if you cannot keep down any food or fluids and begin to lose weight. When this happens, it sometimes can affect the baby s weight at . You also can develop problems with your thyroid, liver, and fluid balance. When is the best time to treat nausea and vomiting of ? Because severe nausea and vomiting of is hard to treat and can cause health problems, many experts recommend early treatment so that it does not become severe. What can I do to feel better if I have nausea and vomiting of ? Diet and lifestyle changes may help you feel better. You may need to try more than one of these suggestions: Take a multivitamin. Try eating dry toast or crackers in the morning before you get out of bed to avoid moving around on an empty stomach. Drink fluids often. Avoid smells that bother you. Eat small, frequent meals instead of three large meals. Try bland foods. For example, the LENNOX diet (bananas, rice, applesauce, toast, and tea) is low in fat and easy to digest. Try tc inez made with real tc, tc tea made from fresh grated tc, tc capsules, and tc candies. If you do vomit a lot, it can cause some of your tooth enamel to wear away. This happens because your stomach contains a lot of acid. Rinsing your mouth with a teaspoon of baking soda dissolved in a cup of water may help neutralize the acid and protect your teeth. Is there medical treatment for nausea and vomiting of ? If diet and lifestyle changes do not help your symptoms, or if you have severe nausea and vomiting of , medical treatment may be needed. If other medical conditions are ruled out, certain medications can be given to treat nausea and vomiting of : Vitamin B6 and doxylamine--Vitamin B6 is a safe, [id number]-[id number] treatment that may be tried first. Doxylamine, a medication found in hweq-tfz-udegdjn sleep aids, may be added if vitamin B6 alone does not relieve symptoms. A prescription drug that combines vitamin B6 and doxylamine is available. Both drugs--taken alone or together--have been found to be safe to take during and have no harmful effects on the baby. Try Vitamin B6 25 mg, take it 3 times per day. Unisom sleep tablet 25 mg (active ingredient doxylamine), take one per day before bed. These won't help if just taken as needed. They should be taken daily be most effective. Antiemetic drugs--If vitamin B6 and doxylamine do not work, antiemetic drugs may be prescribed. These drugs prevent vomiting. Many antiemetic drugs have been shown to be safe to use during . Others have conflicting or limited safety information. You and your stem shaper or other members of your health care team can discuss all of these factors to determine the best treatment for your personal situation. What may happen if my nausea and vomiting is severe or I have hyperemesis gravidarum? You may need to stay in the hospital until your symptoms are under control. Lab tests may be done to check how your liver is working. If you are dehydrated from loss of fluids, you may receive fluids and vitamins through an intravenous line. If your vomiting cannot be controlled, you may need additional medication. If you continue to lose weight, sometimes tube feeding is recommended to ensure that you and your baby are getting enough nutrients. If you have further questions, contact your healthcare provider. Copyright August 2015 by the [employer] = Information: Do's and Don'ts Even with all the valerie and anticipation can bring, it is not uncommon for a awjuyg-wl-fq to have some questions and concerns -- not only about changes to expect throughout her , but also concerns regarding the care of her body to ensure the health of her unborn child. Listed below, you will find some additional information that covers how to care for your body while you are . Do: Plan for weight gain Weight gain during varies from woman to woman and depends on body type. Each woman should talk with her care provider about the appropriate amount of weight gain, as well as diet and exercise. During your , normal weight gain of 0-5 pounds in the first 20 weeks is normal. Most women will gain about a pound a week between 20-40 weeks . However, if your BMI is above or below normal, the following recommendation should be followed: Underweight - BMI Less than 18: Total weight gain 28-40 lbs. Normal Weight - BMI 19-25: Total weight gain 25-35 lbs Overweight - BMI 26-30: Total weight gain 15-25 lbs Obese - BMI over 30: Total weight gain 11-20 lbs If you are having trouble trying to figure out a diet that works for you, please let us know and we can schedule a nutrition consultation for you with our operating room registered nurse. Do: Maintain a balanced diet According to the FDA, about 300 extra calories are needed daily to maintain a healthy . These calories should come from a balanced diet of protein, fruits, vegetables, and whole grains, with sweets and fats kept to a minimum. A healthy, well-balanced diet during can also help to minimize some symptoms such as nausea and constipation. The song to a healthy is making sure you have a good nutrient dense diet. This means that the foods you eat have a low amount of calories and sugars and a high amount of vitamins, minerals and protein. Common examples of nutrient dense foods are colorful fruits and vegetables especially those with dark, rich colors such as leafy green vegetables, berries and carrots. Whole grains, nuts and seeds are also considered nutrient dense. During your , You and your baby need about 60-100 grams of protein every day. Protein rich foods include meat, fish, eggs, almonds cottage cheese, [place] yogurt, low fat cheese and low fat milk. Most women notice that if they eat 60-100 grams of protein every day and eat 7-12 cups of veggies and fruit every day that they don't crave sweet, simple carbohydrates such as bread, bagels, cookies, chips and sugary foods. Simple carbohydrates need to be eaten in moderation throughout as excess carbohydrate intake can cause excess weight gain which can increase your risk for gestational diabetes, gestational hypertension and excessive growth of the baby Fluid intake is also an important part of healthy nutrition. Women can take in enough fluids by drinking 6 to 8 glasses of water each day, in addition to the fluids in juices and soups. An expectant mother should talk with her health care provider or cash processor about restricting her intake of caffeine and artificial sweeteners. All alcohol should be avoided in . Do: Exercise during : Regular exercise during , with the approval of your physician or cash processor, can often help to minimize the daily physical discomforts and help with the recovery after the baby is born. There is evidence that physical activity may be especially beneficial for women with gestational diabetes. Women who exercised and were physically fit before can safely continue exercising throughout the . Women who were inactive before or who have medical or complications should consult with their physician or cash processor before beginning any exercise during . All women should be evaluated by their physician or cash processor before beginning or continuing an exercise program while . Exercise for women may not be safe if they have any of the following conditions: labor in current or past pregnancies Vaginal bleeding Cervical problems Leaking of amniotic fluid Shortness of breath Dizziness and/or fainting Decreased activity or other complications Increased heart rate (tachycardia) Certain health problems, such as high blood pressure or heart disease Types of exercise to avoid during : Horseback riding Water skiing Scuba diving High altitude skiing Contact sports Any exercise that can cause a serious fall Exercising on your back after the first trimester (because of reduced blood flow to the uterus) Vigorous exercise in hot, humid weather, as women are less efficient at exchanging heat Exercise involving the Valsalva maneuver (holding one's breath during exertion), which can increase intra-abdominal pressure on the uterus Don't: Expose yourself to unnecessary risks if you work during Many women work during without any complications. Being able to work safely, in some cases, until the day of delivery depends on the type of work performed and the ksqrbw-rt-so's medical condition. Taking proper precautions to avoid these risks on the job can help keep you and your baby healthy throughout the . The [place] [employer] recommends the following for working women: Take a break every few hours Take a longer meal break every four hours Drink plenty of fluids while on the job Vary work positions continuously, from sitting to standing and walking Minimize heavy lifting and bending Proper lifting techniques during Weight gain during adds strain to the back. Proper lifting can help reduce the strain and prevent injury. When lifting, a woman should keep in mind the following recommendations: Stand with feet shoulder-width apart Tuck in the buttocks Bend at the knees Lift with the arms and legs, not the back Limit the amount and weight of the items lifted Computer use in Today, many occupations involve the use of a computer. Computers have also been associated with many complaints, such as neck, wrist, hand, shoulder, and back pain from prolonged sitting in the same position and eyestrain. To alleviate these symptoms, the following may help: Take frequent work breaks Use detachable keyboards and adjustable chairs and tables Use non-reflective glass on the screen, adjust the screen lighting and contrast, and install indirect lighting Do: Discuss sex during with your health care provider In most cases, sex during is safe. In fact, with your health care provider's approval, sexual relations can continue until delivery. However, fluctuating hormone levels and certain symptoms such as nausea and tiredness can temporarily reduce a woman's libido (sex drive). In addition, visible changes in the woman's body may affect sexual desire. Always consult your healthcare provider concerning any questions you may have about sex during . Sexual intercourse may have to be avoided if the following symptoms occur: Vaginal bleeding Pain Leaking of amniotic fluid (the fluid surrounding your baby in the womb) Contractions Do: Discuss the best sleeping positions with your health care provider As the fetus grows within the uterus, lying on your back is not recommended due to pressure on the inferior vena cava, a major vein that returns blood from the lower body to the heart. In addition, the increased pressure on the back and intestines can cause discomfort. The best sleeping position for a woman is on her side, because it allows for maximum blood flow to the fetus and improves kidney function in the mother. Improved kidney flow helps to reduce any swelling. Placing a pillow between the knees can help a woman sleep more comfortably on her side. How to contact us: During office hours please call the office: [phone] After hours answering service phone number: [phone] Please call if you experience any of the following: LABOR: Contractions that you feel 4-6 times per hour. It may feel like lower abdominal cramping, or low back pain that comes and goes with stomach tightening. If you notice this, lie down on your side and drink 2 bottles of water. Rest and fluids is normally enough to calm things down. If after 1-2 hours the contractions don't get better, then call us. BLEEDING: Blood tinged mucous discharge is not uncommon, especially if you have had an exam in the office recently or sexual intercourse. However if you are bleeding like a period, you should call us WATER BREAKS: You may experience in increase in vaginal secretions near the time of labor, but if you think your water broke, please call us. DECREASED MOVEMENT: Baby movements change in the last trimester. They tend to be not as vigorous, and change to nudges and rolls. But, if you feel like these movement are not normal, please call our office during office hours or the answering service after hours. [facility] Before you bring your baby into the world, a lot of decisions have to be made. One of those decisions is whether or not to use a Certified Nurse Weaver Hand (CNM). Certified Nurse Midwives are registered nurses who have received a master s degree and advanced training in women s health and midwifery. They passed a national certification examination and are licensed in the state [facility]. Certified Nurse Midwives write prescriptions and provide a variety of services, including: care Labor & delivery care Care after Disease prevention Family planning assistance Gynecological exams Health maintenance counseling Menopausal management Preconception care CNMs work to support and educate women through all phases of and delivery, and support both medicated and non-medicated birthing methods. They are especially skilled at using alternative birthing positions, birthing balls, water therapy, and massage. If you desire an epidural, this is still an option if you have a Certified Nurse Weaver Hand. You will work with your CNM to determine the best delivery options for you. However, if medical intervention is needed, your cash processor will take the steps necessary to ensure a healthy outcome for you and your baby. Certified Nurse Midwives are always security professionals with a physician in case intervention is needed, for instance a Section, vacuum or forceps assisted . Our physician would perform those procedures and the CNM remains present with you for support. The laboring woman receives the best possible care with this team based approach. The CNM section rate at [facility] is only 8-9%, which means most mothers have a normal vaginal . [facility] offers the largest midwifery team in the [facility]. This team is available any time, day or night for your delivery. The cash processor that is security professionals the day you labor will be the one who attends the . Throughout your you have the option to meet the various midwives or simply go to the office that is most convenient for you. Not all midwives see clients in every office. Angeles Nettles, DROP MACHINE OPERATOR-CNM Thalia Davey, DROP MACHINE OPERATOR-CNM Cyndi Keller, DROP MACHINE OPERATOR-CNM Leah Ross, DROP MACHINE OPERATOR-CNM Raiza Vogel, DROP MACHINE OPERATOR-CNM Bisi Martin DROP MACHINE OPERATOR-CN Kelley Aceves, DROP MACHINE OPERATOR-CNM Norma Gibson, DROP MACHINE OPERATOR-CN * Natalie Freedman, DROP MACHINE OPERATOR-CNM Becca Valencia, DROP MACHINE OPERATOR-CNM Love Montgomery DROP MACHINE OPERATOR-CN Keyonna Arana, DROP MACHINE OPERATOR-CN * Sydnie Atkins, DROP MACHINE OPERATOR-CNM * *Office-based only midwives, do not attend births Currently, 07/04 midwifery coverage while in labor is only available at [facility]. Do you want more information about midwives? Discover more information for you and your family at the [employer] ([employer]) web site at [email or web address]. Check out the video about Midwives and the Care They Provide at [email or web address] o documented in this encounter [facility] 04-13-2021 History of Presen t illness Narrative Images from the original note were not included. POST OPERATIVE DAY # 2 Mauro Restrepo is a 30 y.o. who was seen & examined today. Her was complicated by: Patient Active Problem List Diagnosis Seasonal allergies Threatened labor, unspecified trimester Today she is doing well without any chief complaint. Her lochia is light. She denies chest pain, shortness of breath, headache, blurred vision and RUQ pain. She is ambulating well. Flatus present. Bowel movement absent. Voiding spontaneously. She is tolerating solids. Pain is controlled yes. Vital Signs: Vitals: 04/12/21 0849 04/12/21 1154 04/12/21 1219 04/12/21 2155 BP: 114/84 124/87 117/87 Pulse: 82 100 78 85 Resp: 16 16 16 Temp: 98.2 F (36.8 C) 98.2 F (36.8 C) 97.5 F (36.4 C) TempSrc: Temporal Temporal Temporal Oral SpO2: 96% 99% 97% Weight: Height: Urine Input & Output last 24hrs: Intake/Output Summary (Last 24 hours) at 04/13/2021 0610 Last data filed at 04/12/2021 0941 Gross per 24 hour Intake Output 400 ml Net -400 ml Physical Exam: General: no apparent distress, alert and cooperative Affect: appropriate Lungs: No increased work of breathing, good air exchange Abdomen: abdomen soft, non-distended, non-tender Fundus: non-tender, normal size, firm, below umbilicus Incision: Steri strips in place, minimal dried blood, no discharge, incision intact Extremities: no calf tenderness, non edematous Labs: Lab Results Component Value Date WBC 13.8 (H) 04/11/2021 HGB 10.5 (L) 04/12/2021 HCT 37.7 04/11/2021 MCV 87.6 04/11/2021 PLT 232 04/11/2021 O POS Antibody Screen: Antibody Screen Date Value Ref Range Status 04/11/2021 NEG NA Final No results found for: RUBELLAIGG LABOR DELIVERY ??? SCD's ONLY (labor through ambulation) SCD's PLUS Prophylactic Anticoagulation until discharge SCD's PLUS Prophylactic Anticoagulation for 6 weeks SCD's PLUS Therapeutic Anticoagulation for 6 weeks Vaginal Delivery [] BMI ? 40 kg/m2 Delivery All patients Vaginal Delivery [] BMI ? 40 kg/m2 AND [] Antepartum hospitalization ? 72 hours within the past month Delivery 1 Major Risk Factor: [] BMI ? 35 kg/m2 [] Low Risk Thrombophilia [] PPH+RBCs, IR, or operation [] Infection+Antibiotics [] Antepartum hospitalization ? 72 hours within the past month [] PMH: Sickle Cell, SLE, Cardiac Dz, Active IBD, Active Cancer, Nephrotic Syndrome OR 2 Minor Risk Factors: [] Multiple gestation [] Age > 40 [] PPH ? 1,000cc [] (+)FMH of VTE [] Smoker [] Preeclampsia [] BMI ? 40 kg/m2 AND [] Low Risk Thrombophilia OR ANY OF THE FOLLOWING: [] High Risk Thrombophilia without prior VTE [] Low Risk Thrombophilia with (+)FMH of VTE [] Any single prior VTE ANY OF THE FOLLOWING: [] Already on LMWH/UFH [] Multiple prior VTE [] High Risk Thrombophilia with prior VTE Low Risk Thrombophilia: FVL (heterozygous), Prothrombin (heterozygous), Protein C, Protein S High Risk Thrombophilia: FVL (homozygous), Prothrombin (homozygous), FVL+Prothrombin (heterozygous), Antithrombin III, APLS Assessment/Plan: 1. Mauro Nj Walker is a 30 y.o. POD # 2 s/p PLTCS 2/2 abdominal ascites, PTL 2. Care - Doing well, VSS - Female - Breast feeding - Contraception: Per Private Attending - Encourage ambulation and use of incentive spirometer - Postop Hb 10.5 - VTE Prophylaxis: Not Indicated 3. Anxiety/Depression - Mood stable this morning - Not on medications 4. Disposition: Anticipate discharge today per private attending's discretion Based on my clinical assessment, this patient is safe for self discharge (does not need transport by wheelchair) if she so chooses. Provider's Name: MD HIEN Hinkle, DO 04/13/2021, 6:10 AM Attestation Statement I saw and evaluated the patient. I agree with the findings and plans of the resident physician, and agree as documented in her note . Doing well POD#2, meeting all post-op milestones. Baby girl at [facility]IDS, pt desires d/c to home. Post-op/PP instruction provided. Plan follow up 2 weeks for incision check, then 6 weeks routine PP. Plans POP for BC. I spent 20 minutes in the visit, with more than 50% of the total [id number] time of the visit in counseling/coordination of care. Nutrition Note Patient POD # 1 s/p PLTCS 2/2 Anomalies, PTL. Currently on General diet and tolerating well per notes. RD sign off to registered dietician to continue to monitor. Contact: pager [phone] Images from the original note were not included. POST OPERATIVE DAY # 1 Mauro Restrepo is a 30 y.o. who was seen & examined today. Her was complicated by: Patient Active Problem List Diagnosis Seasonal allergies Threatened labor, unspecified trimester Today she is doing well without any chief complaint. Her lochia is light. She denies chest pain, shortness of breath, headache, blurred vision and RUQ pain. She is ambulating well. Flatus present. Bowel movement absent. Mayo catheter removed this AM and has not yet voided spontaneously. She is tolerating solids. Pain is controlled yes. Vital Signs: Vitals: 04/11/21 1810 04/11/21 1945 04/12/21 0003 04/12/21 0403 BP: 114/76 138/83 116/87 120/82 Pulse: 81 79 87 74 Resp: 18 16 16 Temp: 98.6 F (37 C) 97.3 F (36.3 C) 97.9 F (36.6 C) 97.5 F (36.4 C) TempSrc: Oral Temporal Temporal Temporal SpO2: 96% 96% 97% 96% Weight: Height: Urine Input & Output last 24hrs: Intake/Output Summary (Last 24 hours) at 04/12/2021 0636 Last data filed at 04/12/2021 0011 Gross per 24 hour Intake 1500 ml Output 3390 ml Net -1890 ml Physical Exam: General: no apparent distress, alert and cooperative Affect: appropriate Lungs: No increased work of breathing, good air exchange Abdomen: abdomen soft, non-distended, non-tender Fundus: non-tender, normal size, firm, below umbilicus Incision: Dressing in place, clean and dry Extremities: no calf tenderness, non edematous Labs: Lab Results Component Value Date WBC 13.8 (H) 04/11/2021 HGB 10.5 (L) 04/12/2021 HCT 37.7 04/11/2021 MCV 87.6 04/11/2021 PLT 232 04/11/2021 O POS Antibody Screen: Antibody Screen Date Value Ref Range Status 04/11/2021 NEG NA Final No results found for: RUBELLAIGG LABOR DELIVERY ??? SCD's ONLY (labor through ambulation) SCD's PLUS Prophylactic Anticoagulation until discharge SCD's PLUS Prophylactic Anticoagulation for 6 weeks SCD's PLUS Therapeutic Anticoagulation for 6 weeks Vaginal Delivery [] BMI ? 40 kg/m2 Delivery All patients Vaginal Delivery [] BMI ? 40 kg/m2 AND [] Antepartum hospitalization ? 72 hours within the past month Delivery 1 Major Risk Factor: [] BMI ? 35 kg/m2 [] Low Risk Thrombophilia [] PPH+RBCs, IR, or operation [] Infection+Antibiotics [] Antepartum hospitalization ? 72 hours within the past month [] PMH: Sickle Cell, SLE, Cardiac Dz, Active IBD, Active Cancer, Nephrotic Syndrome OR 2 Minor Risk Factors: [] Multiple gestation [] Age > 40 [] PPH ? 1,000cc [] (+)FMH of VTE [] Smoker [] Preeclampsia [] BMI ? 40 kg/m2 AND [] Low Risk Thrombophilia OR ANY OF THE FOLLOWING: [] High Risk Thrombophilia without prior VTE [] Low Risk Thrombophilia with (+)FMH of VTE [] Any single prior VTE ANY OF THE FOLLOWING: [] Already on LMWH/UFH [] Multiple prior VTE [] High Risk Thrombophilia with prior VTE Low Risk Thrombophilia: FVL (heterozygous), Prothrombin (heterozygous), Protein C, Protein S High Risk Thrombophilia: FVL (homozygous), Prothrombin (homozygous), FVL+Prothrombin (heterozygous), Antithrombin III, APLS Assessment/Plan: 1. Mauro Nj Walker is a 30 y.o. POD # 1 s/p PLTCS 2/2 Anomalies, PTL 2. Care - Doing well, VSS - Female infant - Breast feeding - Contraception: Per Private Attending - Encourage ambulation and use of incentive spirometer - D/C mayo catheter and saline lock IV on POD #1 - Postop Hb 10.5 - VTE Prophylaxis: Not Indicated 3. Anxiety/Depression - Mood stable - Not on medications 4. Disposition: Continue current care Based on my clinical assessment, this patient is safe for self discharge (does not need transport by wheelchair) if she so chooses. Provider's Name: MD HIEN Hinkle DO 04/12/2021, 6:36 AM ATTENDING NOTE: I personally saw and evaluated the patient. I reviewed the care provided by the resident/ PA/ TEACHER ASST including the patient's medical history, physical exam findings, diagnosis and treatment plan. I also agree with the documentation from the resident /PA /TEACHER ASST unless otherwise indicated: Doing well. +void/ flatus. Ok for pass to [facility] --- Total time spent with the patient was 20 minutes, of which greater than 50% of the time was spent counseling and coordinating care. Pt delivered this morning and baby at [facility]. Set up with double electric ameda pump. Observed pumping, flange fit appropriate without rubbing. Pt states pumping is not painful but it is weird . Discussed benefits of jorge for her nicu . Reviewed pump regimen, settings and cleaning. Pt has a pump for home use. Informed of support and how to contact if needed. Verbalizes understanding. Anesthesia at bedside evaluating pt epidural level- pt still feeling touch Images from the original note were not included. Labor Progress Note Date: 04/11/2021 Time: 5:47 AM Subjective: Mauro Restrepo is a 30 y.o. female at 34w5d 1. PTL 2. anomalies 3. Polyhydramnios In to recheck pt, SVE now 5/90/-3. Pt comfortable with epidural, continues to contract q3-4 mins. Will defer any augmentation at this time. FHT cat I and reassuring. Will continue expectant management. Repeat SVE 5/90/-2 with tense membranes but still intact. Cat I FHT, [place] Q5-6min. Comfortable with epidural. Discussed NPO at this time as will repeat US to assess ascites. Concern if large amount of ascites, that the abdomen may get stuck if vaginal delivery attempted and recommendation may be for primary section. Will continue to evaluate. Patient had US performed this AM. Per Dr. Valladares and NICU team, concern for large abdominal girth that would not be able to deliver vaginally. Dr. Valladares spoke with patient regarding route of delivery and all are in agreement to proceed with PCD. Safety huddle held with supercharger mechanic, patient RN, and OB anesthesia. Will proceed with unscheduled nonemergent PCD. Will be for Ancef and Azith given that patient is laboring. Will have hemorrhage kit in the room due to poly and uterine distension. Does not have to be 30mins as patient remains 5cm with membranes still intact but will proceed as soon as OR is available given risk for labor. All are in agreement. Consent signed for PCD and possible blood transfusion. GREENHOUSE MANAGER notified. Images from the original note were not included. Department of Obstetrics and Gynecology Labor and Delivery Triage Note CHIEF COMPLAINT: ctx HISTORY OF PRESENT ILLNESS: The patient is a 30 y.o. 34w5d. OB History 1 Para Term AB Living SAB TAB Ectopic Molar Multiple Live Births Patient presents with a chief complaint as above. Pt presents to triage complaining of painful contractions since noon earlier today. Patient states they have are becoming more frequent and painful to the point that she has been crying with each contraction every 2 to 3 minutes. Patient reports previous admission to a hospital in [place] for threatened labor on 01/26-01/27, at this time she received Celestone for lung maturity and was discharged home on Procardia for tocolysis. has been complicated by massive ascites with possible bladder outlet obstruction and bilateral pelvocaliectasis. SVE was previously 0-1 cm dilated 2 weeks ago when pt was seen in triage for tPTL, today pt made cervical change to 3/80/-2. Pt has been following with the [facility] for anomalies listed above, planning for delivery in the OR with NICU present. Denies DFM/VB/LOF Estimated Due Date: Estimated Date of Delivery: 05/18/21 PAST MEDICAL HISTORY: Past Medical History: Diagnosis Date Abnormal Pap smear of cervix abnormal cells reported per patient Allergic rhinitis Breast disorder fibrocystic breast Gastritis PAST SURGICAL HISTORY: Past Surgical History: Procedure Laterality Date WISDOM TOOTH EXTRACTION SOCIAL HISTORY: reports that she quit smoking about 14 years ago. She has never used smokeless tobacco. She reports that she does not drink alcohol and does not use drugs. MEDICATIONS: Prior to Admission medications Medication Sig Start Date End Date Taking? Authorizing Provider famotidine (PEPCID) 20 MG tablet Take 20 mg by mouth 2 times daily Yes Historical Provider, Vit-Fe Fumarate-FA ( 1+1 PO) Take 1 tablet by mouth daily Yes Historical Provider, ondansetron (ZOFRAN) 4 MG tablet Take 4 mg by mouth every 8 hours as needed for Nausea or Vomiting Yes Historical Provider, docusate sodium (COLACE) 100 MG capsule Take 100 mg by mouth 2 times daily Yes Historical Provider, diphenhydrAMINE-APAP, sleep, (TYLENOL PM EXTRA STRENGTH) 25-500 MG tablet Take 1 tablet by mouth nightly as needed for Sleep Yes Historical Provider, diphenhydrAMINE (BENADRYL) 25 MG capsule Take 25 mg by mouth every 6 hours as needed for Itching Yes Historical Provider, cetirizine (ZYRTEC) 10 MG tablet Take 1 tablet by mouth daily 10/28/16 Yes Marylin Thompson MD fluticasone (FLONASE) 50 MCG/ACT nasal spray place 1 spray into each nostril once daily 01/13/18 Mukund Escobar MD azelastine (OPTIVAR) 0.05 % ophthalmic solution Place 1 drop into both eyes 2 times daily 10/13/17 Marylin Thompson MD pantoprazole (PROTONIX) 20 MG tablet 09/21/16 Historical Provider, MARLIAC 0.15-30 MG-MCG per tablet 09/29/16 Historical Provider, CARE: Complicated by: ascites, tPTL, possible bladder outlet obstruction REVIEW OF SYSTEMS: Pertinent items are noted in HPI. APPEARANCE: Pain: yes PHYSICAL EXAM: Vital Signs: VS wnl-reviewed/Respirations normal effort Vitals: 04/10/21 2351 BP: 138/89 Pulse: 82 Resp: 18 Temp: 97.9 F (36.6 C) SpO2: 99% Weight: 191 lb (86.6 kg) Height: 5' 8 (1.727 m) Abdomen: soft, NT, ND, no rebound/guarding Uterus: gravid/non-tender LE Edema: trace Speculum Exam: wet prep results: no pathogens heart rate: Category I Cervix: 3/80/-2 Contraction frequency: regular, every 2-3 minutes Membranes: Intact RESULTS: GENERAL LABS: No results found for this or any previous visit (from the past 24 hour(s)). TRIAGE COURSE: Based on clinical hx and exam, pt SVE now 3/80/-2 and pt crying in severe pain with ctx. Concern for PTL at this time, will admit to PNU for observation. Pt previously admitted for PTL and given celestone on 01/26-01/27, so she is not a candidate for rescue steroids at this time. GREENHOUSE MANAGER notified, pt will deliver In OR. IMPRESSION: Pre-Term Labor DISCUSSED WITH PNC PROVIDER: Dr. Briggs DISPOSITION: Admit to PNU Associated attestation - Maxine Lopez MD - 04/11/2021 5:23 AM EDT I reviewed and agree with the care provided by the resident/CNM during the visit including the patient's medical history, the resident's findings in the physical exam, patient's diagnosis and treatment plan. documented in this encounter [facility] Work Phone: 04-12-2021 Note Attestation signed by Audra Roche DO at 05/07/2021 8:19 AM ATTENDING NOTE: I reviewed the note from the resident /PA /TEACHER ASST and agree with the documentation unless otherwise indicated. Department of Obstetrics and Gynecology Delivery Discharge Summary Admission on 04/10/2021 11:22 PM ? Reason for Hospitalization: Unscheduled Primary LTCS for PTL 34w5d ? Intrapartum Course: n/a Surgical Operations & Procedures: Date of delivery: 04/11/2021 Procedure: with labor Anesthesia: Epidural anesthesia, TAP block. Laceration(s): n/a Delivery Complications: none EBL: 900 cc Pertinent Findings & Procedures: Information for the patient's : Robert Restrepo [[id number]] female Weight: 5 lb 14.5 oz (2.68 kg) Apgars: Information for the patient's : Robert Restrepo [[id number]] One Minute : 3 Five Minute : 8 Course: Uncomplicated Infant: Live female infant transferred to [facility] Blood Type/Rh: O POS Antibody Screen: Antibody Screen Date Value Ref Range Status 04/11/2021 NEG NA Final Rubella: No results found for: RUBELLAIGG Contraception: oral progesterone-only contraceptive : yes VTE Prophylaxis: Not Indicated Home Meds: Mauro Restrepo Home Medication Instructions JOHN:[id number] Printed on:04/13/21 0941 Medication Information azelastine (OPTIVAR) 0.05 % ophthalmic solution Place 1 drop into both eyes 2 times daily cetirizine (ZYRTEC) 10 MG tablet Take 1 tablet by mouth daily diphenhydrAMINE (BENADRYL) 25 MG capsule Take 25 mg by mouth every 6 hours as needed for Itching docusate sodium (COLACE, DULCOLAX) 100 MG CAPS Take 100 mg by mouth 2 times daily as needed for Constipation fluticasone (FLONASE) 50 MCG/ACT nasal spray place 1 spray into each nostril once daily ibuprofen (ADVIL;MOTRIN) 600 MG tablet Take 1 tablet by mouth every 6 hours oxyCODONE (ROXICODONE) 5 MG immediate release tablet Take 1 tablet by mouth every 6 hours as needed for Pain for up to 5 days. Vit-Fe Fumarate-FA ( 1+1 PO) Take 1 tablet by mouth daily Meds at Discharge: Medication List START taking these medications ibuprofen 600 MG tablet Commonly known as: ADVIL;MOTRIN Take 1 tablet by mouth every 6 hours oxyCODONE 5 MG immediate release tablet Commonly known as: ROXICODONE Take 1 tablet by mouth every 6 hours as needed for Pain for up to 5 days. CHANGE how you take these medications docusate 100 MG Caps Commonly known as: COLACE, DULCOLAX Take 100 mg by mouth 2 times daily as needed for Constipation What changed: ? when to take this ? reasons to take this CONTINUE taking these medications azelastine 0.05 % ophthalmic solution Commonly known as: OPTIVAR Place 1 drop into both eyes 2 times daily cetirizine 10 MG tablet Commonly known as: ZYRTEC Take 1 tablet by mouth daily diphenhydrAMINE 25 MG capsule Commonly known as: BENADRYL fluticasone 50 MCG/ACT nasal spray Commonly known as: FLONASE place 1 spray into each nostril once daily 1+1 PO STOP taking these medications famotidine 20 MG tablet Commonly known as: PEPCID Marlissa 0.15-30 MG-MCG per tablet Generic drug: levonorgestrel-ethinyl estradiol ondansetron 4 MG tablet Commonly known as: ZOFRAN pantoprazole 20 MG tablet Commonly known as: PROTONIX Tylenol PM Extra Strength 25-500 MG tablet Generic drug: diphenhydrAMINE-APAP (sleep) Where to Get Your Medications These medications were sent to [facility] [address] [phone] - [phone] [place] [id number] ? docusate 100 MG Caps ? ibuprofen 600 MG tablet ? oxyCODONE 5 MG immediate release tablet Activity: Activity as tolerated Diet: Regular diet Follow-up Appointments: _x_ visit _x_ incision check _ _ blood pressure check _ _ blood sugar check/ 2-hr GTT _x_ depression screen _ _ other: Condition on discharge: Stable Discharge to: Home Discharge date: 04/13/21 Discharge Dx: 1. S/p PLTCS at 34w5d 2. H/o PTL 3. anomalies 4. Anxiety/ depression Threatened labor, unspecified trimester [O47.00] Patient Active Problem List Diagnosis ? Seasonal allergies Comments: Home care, Follow-up care and control were reviewed. Signs and symptoms of mastitis and Depression were reviewed. The patient is to notify her physician if any of these occur. [facility] 04-12-2021 Hospital Discharg e tavo Audra Roche - 04/12/2021 Images from the original note were not included. After Your Delivery (the Period): Your Care Instructions Congratulations on the of your baby. Like , the period can be a time of excitement, valerie, and exhaustion. You may look at your wondrous little baby and feel happy. You may also be overwhelmed by your new sleep hours and new responsibilities. In these first weeks after delivery, try to take good care of yourself. It may take 4 to 6 weeks to feel like yourself again, and possibly longer if you had a . You will likely feel very tired for several weeks. Your days will be full of ups and downs, but lots of valerie as well. FOLLOW-UP: Your follow-up care is a song part of your treatment and safety. Follow-up with your OB doctor in 4-6 weeks or as specified by your physician. Be sure to make and go to all appointments, and call your doctor if you are having problems. It's also a good idea to know your test results and keep a list of the medicines you take. BLEEDING Vaginal bleeding will decrease in amount over the next few weeks but be present for as long as 8 weeks after delivery. Bleeding may pick pulling machine operator and then decrease again around 7-10 days . Use pads instead of tampons for the bloody flow that may last as long as 2 weeks. You will notice that as your activity increases, your flow may increase. Call your doctor if you are saturating one maxi pad in an hour & passing large clots for 3 hours or more. ACTIVITY NO SEXUAL activity for 6 weeks or until advised by your doctor. Nothing in the vagina for 6 weeks: e.g.) intercourse, tampons, or douching. Showering is okay; NO tub baths, swimming, or hot tubs for 6 weeks. Gradually increase your activity. Resume exercise regimen only after advice by your doctor. Avoid lifting anything heavier than your baby or a gallon of milk for six weeks. Avoid driving 1 week for vaginal delivery and 2 weeks for section, or longer if you are on prescription pain medicine unless otherwise instructed by your doctor. Rise slowly from a lying to sitting and then a standing position. Climb stairs carefully. Use caution when carrying your baby up and down the stairs. You may feel tired or have a lack of energy. Nap when baby naps to catch up on sleep. You may continue your vitamin to replenish nutrients post delivery. EMOTIONS You may feel ferrer, sad, teary, & overwhelmed for the first 2 weeks ; however, feelings of post depression may occur any time within the first year after delivery. Contact your OB provider if you feel you may be showing signs of depression, or have thoughts of harming yourself or your infant. If will not stop crying, contact another adult for help or place infant in their crib on their back and take a break. NEVER shake your infant. WOUND CARE For Vaginal Delivery: Shower daily, and cleanse your perineum (bottom) with mild soap from front to Back. Use the plastic squirt bottle until bleeding stops each time you use the restroom instead of wiping with toilet paper. Ease soreness of hemorrhoids and the area between your vagina and rectum with ice compresses or witch winifred pads. If used, stitches will dissolve in 4-6 weeks on their own. You may use a sitz bath or soak in a clean tub with drain open and water running for comfort. Kegel exercises will help restore bladder control. To do these tighten your muscles as if you were stopping your urine flow. Hold for a few seconds and then relax. Do these throughout the day. For Section Delivery: Keep your incision clean and dry. If you had steri-strips you may remove these once they start peeling off. If you have senthil they need to be removed 3-10 days after delivery. If you have steri-strips, remove after 10-14 days. Do not wear clothing that irritates the incision line. If your incision in in a crease that is not dry, use a hair-dryer to dry the area 3 times a day. If you develop fever, shaking chills, redness, swelling, drainage or discharge from your wound, or if your wound looks like it's coming apart call your doctor immediately. For Tubal Ligation: Remove dressing 3 days after being discharged from the hospital. If you develop fever, shaking chills, redness, swelling, drainage or discharge from your wound, or if your wound looks like it's coming apart call your doctor immediately. BREAST CARE If you develop a warm, red, tender area on your breast or develop a fever contact your doctor. For moms: If you become engorged, feeding may be more difficult or painful for 1-2 days. You may find it helpful to hand express some milk so that the infant can latch on more easily or ease soreness with wet, warm washcloths. While , continue to take your vitamins as directed by your doctor. For non- moms: You may apply ice packs to your breasts over you bra for twenty minutes at a time for comfort. Cabbage leaves may be applied to breasts, replace when wilted. Avoid stimulation to your breasts, when showering allow the water to strike your back not your breasts. Do not express milk or your body will make more. Wear a good fitting bra until your milk dries, such as a sports bra. DIET & CONSTIPATION Eat a well balanced diet focusing on foods high in fiber and protein such as: whole grain cereals and breads, fruits and vegetables and legumes (eg, beans, lentils) Drink 8-10 glasses of fluids daily, especially water. To avoid constipation you may take a mild xebp-ugp-laxvymx stool softener (such as colace) as recommended by your doctor. SWELLING Try to keep your legs elevated when you are sitting or lying down. Stay hydrated and take walks. BABY Babies sleep safest on their back in a crib without bumpers, blankets or stuffed animals. DO NOT sleep with your baby in your bed or the couch. DO NOT expose baby to smoke, this can increase risks of asthma and sudden infant syndrome. If you or someone around baby smokes have them change their shirt and wash any facial hair before holding baby. Do not smoke inside the house and change the ventilation filters in the house before bringing baby home. WHEN TO CALL THE DOCTOR Signs of infection, including fever (101oF) and chills. Increased bleeding: soaking more than one sanitary pad an hour. Wounds that become red, swollen or drain pus. Vaginal discharge that smells foul. Headaches that lasts several hours and will not go away even with headache medications. Visual changes that last several hours and will not go away. Significant pain immediately below your rib cage. New pain, swelling, or tenderness in your legs Pain that you can't control with the medications you've been given. Pain, burning, urgency or frequency of urination, or persistent bleeding in the urine. Cough, shortness of breath, or chest pain. Depression, suicidal thoughts, or feelings of harming your baby. Breasts that are hot, red and accompanied by fever. Any cracking or bleeding from the nipple or areola (the dark-colored area of the breast). In case of an emergency, call 911 immediately. If you are Covid-19 positive or a Person Under Investigation (PUI) Xrvnbh-dt-yjxix transmission of COVID-19 during is unlikely, but after a baby is susceptible to mnftyj-of-tqwuzz spread. After your baby is born, your health care provider may recommend you not hold your baby and/or that you stay in a separate room from your baby until you get better. If you and your baby are not , wear a facemask at all times and wash your hands thoroughly before touching, holding or feeding your baby. Baby Care & Feeding has many benefits for you and your baby and is the best food for your baby. From what experts know so far, COVID-19 has not been found in breastmilk. Having a healthy adult who can assist with baby care until you get better is important, you may want to have a healthy adult feed your baby your expressed breast milk or formula if you chose to not breastfeed. You may use a breast pump to express your breast milk. Wear a face mask, wash your breasts, then wash your hands thoroughly before touching the breast pump and bottle parts. Clean all pump parts after each use. If you choose to breastfeed from your breast, wear a face mask, wash your breasts, wash your hands thoroughly before feeding your baby. These could be signs that your COVID-19 symptoms are worsening and you may need emergency care: You are severely dizzy or lightheaded. You are confused or can't think clearly. Your face and lips have a blue color. You are unable to respond to others or are very hard to wake up. Prevention steps for People with confirmed or suspected COVID-19 (including persons under investigation) who do not need to be hospitalized AND People with confirmed COVID-19 who were hospitalized and determined to be medically stable to go home Your healthcare provider and public health staff will evaluate whe ther you can be cared for at home. If it is determined that you do not need to be hospitalized and can be isolated at home, you will be monitored by staff from your local or state health department. You should follow the prevention steps below until a healthcare provider or local or state health department says you can return to your normal activities. Stay home except to get medical care People who are mildly ill with COVID-19 are able to isolate at home during their illness. You should restrict activities outside your home, except for getting medical care. Do not go to work, school, or public areas. Avoid using public transportation, ride-sharing, or taxis. Separate yourself from other people and animals in your home People: As much as possible, you should stay in a specific room and away from other people in your home. Also, you should use a separate bathroom, if available. Animals: You should restrict contact with pets and other animals while you are sick with COVID-19, just like you would around other people. Although there have not been reports of pets or other animals becoming sick with COVID-19, it is still recommended that people sick with COVID-19 limit contact with animals until more information is known about the virus. When possible, have another member of your household care for your animals while you are sick. If you are sick with COVID-19, avoid contact with your pet, including petting, snuggling, being kissed or licked, and sharing food. If you must care for your pet or be around animals while you are sick, wash your hands before and after you interact with pets and wear a facemask. Call ahead before visiting your doctor If you have a medical appointment, call the healthcare provider and tell them that you have or may have COVID-19. This will help the healthcare provider's office take steps to keep other people from getting infected or exposed. Wear a facemask You should wear a facemask when you are around other people (e.g., sharing a room or vehicle) or pets and before you enter a healthcare provider's office. If you are not able to wear a facemask (for example, because it causes trouble breathing), then people who live with you should not stay in the same room with you, or they should wear a facemask if they enter your room. Cover your coughs and sneezes Cover your mouth and nose with a tissue when you cough or sneeze. Throw used tissues in a lined trash can. Immediately wash your hands with soap and water for at least 20 seconds or, if soap and water are not available, clean your hands with an alcohol-based hand rivet hole puncher that contains at least 60% alcohol. Clean your hands often Wash your hands often with soap and water for at least 20 seconds, especially after blowing your nose, coughing, or sneezing; going to the bathroom; and before eating or preparing food. If soap and water are not readily available, use an alcohol-based hand rivet hole puncher with at least 60% alcohol, covering all surfaces of your hands and rubbing them together until they feel dry. Soap and water are the best option if hands are visibly dirty. Avoid touching your eyes, nose, and mouth with unwashed hands. Avoid sharing personal household items You should not share dishes, drinking glasses, cups, eating utensils, towels, or bedding with other people or pets in your home. After using these items, they should be washed thoroughly with soap and water. Clean all high-touch surfaces everyday High touch surfaces include counters, tabletops, doorknobs, bathroom fixtures, toilets, phones, keyboards, tablets, and bedside tables. Also, clean any surfaces that may have blood, stool, or body fluids on them. Use a household cleaning spray or wipe, according to the label instructions. Labels contain instructions for safe and effective use of the cleaning product including precautions you should take when applying the product, such as wearing gloves and making sure you have good ventilation during use of the product. Monitor your symptoms Seek prompt medical attention if your illness is worsening (e.g., difficulty breathing). Before seeking care, call your healthcare provider and tell them that you have, or are being evaluated for, COVID-19. Put on a facemask before you enter the facility. These steps will help the healthcare provider's office to keep other people in the office or waiting room from getting infected or exposed. Ask your healthcare provider to call the local or state health department. Persons who are placed under active monitoring or facilitated self-monitoring should follow instructions provided by their local health department or occupational health professionals, as appropriate. When working with your local health department check their available hours. If you have a medical emergency and need to call 911, notify the dispatch personnel that you have, or are being evaluated for COVID-19. If possible, put on a facemask before emergency medical services arrive. Discontinuing home isolation Patients with confirmed COVID-19 should remain under home isolation precautions until the risk of secondary transmission to others is thought to be low. The decision to discontinue home isolation precautions should be made on a rynb-bj-zqiv basis, in consultation with healthcare providers and state and local health departments. Information on COVID-19 for ALL patients Call your provider before your next appointment if you develop any of the following symptoms: fever, cough, fatigue, anorexia, shortness of breath, sputum production, and muscle pains. Headache, confusion, rhinorrhea, sore throat, hemoptysis, vomiting, and diarrhea have been reported but are less common. Some persons with COVID-19 have experienced gastrointestinal symptoms such as diarrhea and nausea prior to developing fever and lower respiratory tract signs and symptoms. Ways to [place] with Anxiety & Stress It is normal to feel anxious or worried about COVID-19. You might feel sad about canceling celebrations and staying away from family and friends. Keep in mind that most people do not get severely ill from COVID-19. It is important to have a plan in case you get sick to prevent spreading the disease to others including an Advanced Care Plan (communicating and documenting your desired health care plan with family and healthcare team). You can take care of yourself by: o Taking a break from watching the news o Take deep breaths, stretch or meditate o Getting exercise, eating healthy foods, and drinking plenty of water o Finding activities you can enjoy inside your home o Staying in touch with your family and friends. Tell your partner, family, and friends how you are feeling. Advance Care Planning People with COVID-19 may have no symptoms, mild symptoms, such as fever, cough, and shortness of breath or they may have more severe illness, developing severe and fatal pneumonia. As a result, Advance Care Planning with attention to naming a health care decision maker (someone you trust to make healthcare decisions for you if you could not speak for yourself) and sharing other health care preferences is important BEFORE a possible health crisis. Please contact your Primary Care Provider to discuss Advance Care Planning. LEARNING ABOUT THE CORONAVIRUS (COVID-19): Coronavirus (COVID-19): Overview What is coronavirus (COVID-19)? The coronavirus disease (COVID-19) is caused by a virus. It is an illness that was first found in [facility], in August 2019. It has since spread worldwide. The virus can cause fever, cough, and trouble breathing. In severe cases, it can cause pneumonia and make it hard to breathe without help. It can cause . Coronaviruses are a large group of viruses. They cause the common cold. They also cause more serious illnesses like [place] respiratory syndrome (MERS) and severe acute respiratory syndrome (SARS). COVID-19 is caused by a novel coronavirus. That means it's a new type that has not been seen in people before. This virus spreads cvbhux-tk-edonek through droplets from coughing and sneezing. It can also spread when you are close to someone who is infected. And it can spread when you touch something that has the virus on it, such as a doorknob or a tabletop. What can you do to protect yourself from coronavirus (COVID-19)? The best way to protect yourself from getting sick is to: Avoid areas where there is an outbreak. Avoid contact with people who may be infected. Wash your hands often with soap or alcohol-based hand sanitizers. Avoid crowds and try to stay at least 6 feet away from other people. Wash your hands often, especially after you cough or sneeze. Use soap and water, and scrub for at least 20 seconds. If soap and water aren't available, use an alcohol-based hand rivet hole puncher. Call 911 anytime you think you may need emergency care. For example, call if: You have severe trouble breathing. (You can't talk at all.) You have constant chest pain or pressure. You are severely dizzy or lightheaded. You are confused or can't think clearly. Your face and lips have a blue color. You pass out (lose consciousness) or are very hard to wake up. Call your doctor now if you develop symptoms such as: Shortness of breath. Fever. Cough. If you need to get care, call ahead to the doctor's office for instructions before you go. Make sure you wear a face mask, if you have one, to prevent exposing other people to the virus. Where can you get the latest information? The following health organizations are tracking and studying this virus. Their websites contain the most up-to-date information. You'll also learn what to do if you think you may have been exposed to the virus. U.[place]. Centers for Disease Control and Prevention (CDC): The CDC provides updated news about the disease and travel advice. The website also tells you how to prevent the spread of infection. www.cdc.gov World Health Organization (WHO): WHO offers information about the virus outbreaks. WHO also has travel advice. www.who.int Current as of: December 15, 2019 Content Version: . [employer]. Care instructions adapted under license by your healthcare professional. If you have questions about a medical condition or this instruction, always ask your healthcare professional. [employer] disclaims any warranty or liability for your use of this information. General Recommendations for Routine Cleaning and Disinfection of Households Community members can practice routine cleaning of frequently touched surfaces (for example: tables, doorknobs, light switches, handles, desks, toilets, faucets, sinks) with household float operator and EPA-registered disinfectants that are appropriate for the surface, following label instructions. Labels contain instructions for safe and effective use of the cleaning product including precautions you should take when applying the product, such as wearing gloves and making sure you have good ventilation during use of the product. These guidelines are focused on household settings and are meant for the general public. Cleaning refers to the removal of germs, dirt, and impurities from surfaces. Cleaning does not kill germs, but by removing them, it lowers their numbers and the risk of spreading infection. Disinfecting refers to using chemicals to kill germs on surfaces. This process does not necessarily clean dirty surfaces or remove germs, but by killing germs on a surface after cleaning, it can further lower the risk of spreading infection. General Recommendations for Cleaning and Disinfection of Households with People Isolated in Home Care - Confirmed or suspected COVID 19 Household members should educate themselves about COVID-19 symptoms and preventing the spread of COVID-19 in homes. Clean and disinfect high-touch surfaces daily in household common areas (e.g. tables, hard-backed chairs, doorknobs, light switches, remotes, handles, desks, toilets, sinks) o In the bedroom/bathroom dedicated for an ill person: consider reducing cleaning frequency to as-needed (e.g., soiled items and surfaces) to avoid unnecessary contact with the ill person. - As much as possible, an ill person should stay in a specific room and away from other people in their home. - The caregiver can provide personal cleaning supplies for an ill person's room and bathroom, unless the room is occupied by child or another person for whom such supplies would not be appropriate. These supplies include tissues, paper towels, float operator and EPA-registered disinfectants (see list link at CDC website). - If a separate bathroom is not available, the bathroom should be cleaned and disinfected after each use by an ill person. If this is not possible, the caregiver should wait as long as practical after use by an ill person to clean and disinfect the high-touch surfaces. How to clean and disinfect: Hard Surfaces Wear disposable gloves when cleaning and disinfecting surfaces. Gloves should be discarded after each cleaning. If reusable gloves are used, those gloves should be dedicated for cleaning and disinfection of surfaces for COVID-19 and should not be used for other purposes. Consult the computer systems information director's instructions for cleaning and disinfection products used. Clean hands immediately after gloves are removed. If surfaces are dirty, they should be cleaned using a detergent or soap and water prior to disinfection. For disinfection, diluted household bleach solutions, alcohol solutions with at least 70% alcohol, and most common EPA-registered household disinfectants should be effective. o Diluted household bleach solutions can be used if appropriate for the surface. Follow computer systems information director's instructions for application and proper ventilation. Check to ensure the product is not past its expiration date. Never mix household bleach with ammonia or any other cleanser. Unexpired household bleach will be effective against coronaviruses when properly diluted. - Prepare a bleach solution by mixing: - 5 tablespoons (1/3rd cup) bleach per gallon of water or - 4 teaspoons bleach per quart of water o Products with EPA-approved emerging viral pathogens [facility] iconexternal icon are expected to be effective against COVID-19 based on data for harder to kill viruses. Follow the computer systems information director's instructions for all cleaning and disinfection products (e.g., concentration, application method and contact time, etc.). Soft (porous) surfaces such as carpeted floor, rugs, and drapes Remove visible contamination if present and clean with appropriate float operator indicated for use on these surfaces. After cleaning: Launder items as appropriate in accordance with the computer systems information director's instructions. If possible, launder items using the warmest appropriate water setting for the items and dry items completely, or Clothing, towels, linens and other items that go in the laundry Wear disposable gloves when handling dirty laundry from an ill person and then discard after each use. If using reusable gloves, those gloves should be dedicated for cleaning and disinfection of surfaces for COVID-19 and should not be used for other household purposes. Clean hands immediately after gloves are removed. o If no gloves are used when handling dirty laundry, be sure to wash hands afterwards. o If possible, do not shake dirty laundry. This will minimize the possibility of dispersing virus through the air. o Launder items as appropriate in accordance with the computer systems information director's instructions. If possible, launder items using the warmest appropriate water setting for the items and dry items completely. Dirty laundry from an ill person can be washed with other people's items. o Clean and disinfect clothes hampers according to guidance above for surfaces. If possible, consider placing a hotel baggage handler that is either disposable (can be thrown away) or can be laundered. CDC has a list of EPA approved cleaning products on their website - https://www.cdc.gov/coronavirus /2019-ncov/community/home/clean ing-disinfection.html https://www.americanchemistry.c om/Ckozx-Zkustkxnirr-Floeazpz-P roducts-List.pdf documented in this encounter [facility] Work Phone: 03-28-2021 History of Presen t illness Narrative Images from the original note were not included. Department of Obstetrics and Gynecology Labor and Delivery Triage Note CHIEF COMPLAINT: Ctx HISTORY OF PRESENT ILLNESS: The patient is a 30 y.o. 32w5d. OB History 1 Para Term AB Living SAB TAB Ectopic Molar Multiple Live Births 0 Patient presents with a chief complaint as above. Pt presents c/o regular ctx every 3-5 mins that became painful this evening around 5 pm. Pt previously admitted at OSH for tPTL and given celestone in January. c/b ascites with possible urinary obstruction. Denies DFM/VB/LOF Estimated Due Date: Estimated Date of Delivery: 05/18/21 PAST MEDICAL HISTORY: Past Medical History: Diagnosis Date Anxiety Depression PAST SURGICAL HISTORY: Past Surgical History: Procedure Laterality Date WISDOM TOOTH EXTRACTION SOCIAL HISTORY: reports that she quit smoking about 6 months ago. She has never used smokeless tobacco. She reports previous alcohol use. She reports that she does not use drugs. MEDICATIONS: Prior to Admission medications Medication Sig Start Date End Date Taking? Authorizing Provider Vit w/Fa-Svqwhffen-YO (PNV PO) Take by mouth Yes Historical Provider, famotidine (PEPCID) 20 MG tablet Take 20 mg by mouth 2 times daily Yes Historical Provider, ondansetron (ZOFRAN) 4 MG tablet Take 4 mg by mouth every 8 hours as needed for Nausea or Vomiting Yes Historical Provider, fluticasone (VERAMYST) 27.5 MCG/SPRAY nasal spray 2 sprays by Each Nostril route daily Yes Historical Provider, docusate sodium (COLACE) 100 MG capsule Take 100 mg by mouth 2 times daily Yes Historical Provider, diphenhydrAMINE (BENADRYL) 25 MG capsule Take 25 mg by mouth every 6 hours as needed for Itching Yes Historical Provider, CARE: Complicated by: ascites REVIEW OF SYSTEMS: Pertinent items are noted in HPI. APPEARANCE: Pain: no PHYSICAL EXAM: Vital Signs: initially mild range, repeat normotensive Vitals: 03/28/21 2102 03/28/21 210 BP: (!) 134/91 Pulse: 100 Resp: 18 Temp: 97.8 F (36.6 C) Weight: 188 lb (85.3 kg) Height: 5' 8 (1.727 m) Abdomen: soft, NT, ND, no rebound/guarding Uterus: gravid/non-tender LE Edema: trace Speculum Exam: wet prep results: no pathogens heart rate: Category I Cervix: 60./-3 Contraction frequency: regular, every 3-6 minutes Membranes: Intact RESULTS: GENERAL LABS: No results found for this or any previous visit (from the past 24 hour(s)). TRIAGE COURSE: Based on initial exam and clinical hx with regular ctx and 1 cm cervix, will give IVF and tylenol. After 3 hours, recheck SVE is unchanged. Pt comfortable and feeling rare ctx. Offered another recheck and pt declined. Will discharge home with return precautions. IMPRESSION: Threatened Pre-Term Labor DISCUSSED WITH PNC PROVIDER: Dr. Massey DISPOSITION: Discharge to Home Associated attestation - Kayy Degroot MD - 03/29/2021 3:24 AM EDT I reviewed and agree with the care provided by the resident/CNM during the visit including the patient's medical history, the resident's findings in the physical exam, patient's diagnosis and treatment plan. Pt had f/u BP that was WNL. documented in this encounter [facility] Work Phone: 03-08-2021 Note M / Genetic Catrachita solomon note Consultation has been requested by: Patrice Rangel MD EDC: Estimated Date of Delivery: 05/18/21 Gestational Age: 29w6d Reason for Consult: abdominal fluid with loculations, evaluate for hydrops. [facility] initial visit. History: 30 y.o. 29w6d Patient with normal first trimester and anatomy US, discovered on 01/26/21 US to have significant ascites. Transferred To hospital for additional testing, given BMZ x 2. [facility] visit with detailed anatomy / echocardiogram completed. NIPT low risk and Vistara single gene negative. 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 Infectious serologies non- contributory in light of US findings. Patient experienced contractions without apparent cervical change and was in hospital for assessment ~ 1 week ago. FFN was positive after collection post SVE. Denies LOF, VB, current contractions, abdominal pain, decreased movement. She was given Nifedipine but felt poorly and discontinued the medication. She remains stable without signs of labor. She lives ~45 minutes from [place]. She presented today with her partner / the FOB. Imaging: Limited ultrasound to assess wellbeing and hydrops check. Prior ultrasound images reviewed. 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 No diaphragmatic hernia observed. CMV infection ruled out. Toxoplasmosis test IgG positive, however avidity is likely to be low yield as the findings are not generally consistent with toxoplasmosis infection (no SAWMILL EQUIPMENT OPERATOR abnormalities). Patient has declined amniocentesis. Previously noted findings confirmed by ultrasound today: - Diaphragm appears intact. There is abdominal upward pressure with some compression of the chest contents. Lung volumes not calculated by today's images. - Progression of abdominal ascites (02/01/21) to development of abdominal / pelvic fluid with septation / loculations in the abdominal cavity with significant distention of the abdomen. - Bilateral renal pyelectasis - suspect mass effect in lower pelvis / abdomen creating urinary retention, renal function is suspected to be normal as normal / high amniotic fluid. Bilateral ureters are visualized distally (3mm L, 5 mm R). Renal cortical thinning is observed. - Bladder of 02/01/21 US appears dilated with beaked appearance, consistent with today's ultrasound where urinary bladder is dilated with appearance of septation. - Polyhydramnios (33.6cm) Please see full ultrasound report for details. Genetic Counseling Summary I discussed with the patient the following issues: Given these observations in their entirety, concern is for a genitourinary abnormality that resulted in urinary extrusion into the abdomen with subsequent development of septations as presently observed. We discussed the concept of abnormalities such as cloaca (although meconium appears to signal down to perineum on MRI) and variations including urinary / vaginal fistulae. We reviewed that it is possible that rupture of the urinary bladder or ureters occurred previously, resulting in the progression to current findings. Urine in the abdomen would increase the risk for bowel matting and possible obstruction. We discussed the possibility of female internal genitalia abnormalities being associated with urologic findings and with MRI findings per the report. There is likely pressure effect +/- blockage of the lower urinary system resulting in dilation of the renal pelves bilaterally. Bilateral kidneys demonstrate hydronephrosis and there is cortical thinning (per MRI > US) suggesting increased pressure / damage to renal parenchyma. The ureters are bilaterally visible (3 - 5 mm). However, we are somewhat reassured by the existence of polyhydramnios - this suggests some level of renal function. Polyhydramnios may be the result of intraabdominal pressure creating inability of the stomach to expand (and possibly regurgitation), intestinal issues arising from matting / exposure in the abdomen, swallowing difficulties, or from other primary GI obstruction (less likely). Abdominal pressure is likely increased. In addition to the above renal findings which appear to be mass-effect related, the hemidiaphragms appear pushed caudally, putting a level of compression on the lungs during development. MRI suggests observed lung volumes for this fetus are between 40 and 51% of expected at this age. Mean lung volumes from MRI are 17.2 - 19.9mm. However lung-head ratios were not calculated directly from imaging. Using estimated measurements from the two largest lung tissue diameters (right side) and using the same-day head circumference estimate (270mm) from MRI, the observed LHR is 3.09. Expected for gestational age (27w4d on 02/20/21) is 3.89 - 4.49, thus the LHR is 79 - 69% expected LHR, with (more content not included)... [facility] 03-01-2021 Note . MICRO - Microbiology PROCEDURE: Group B Strep PCR [*1] SOURCE: Vaginal Rectal BODY SITE: COLLECTED DATE/TIME: 02/27/2021 20:34 EDT RECEIVED DATE/TIME: 02/27/2021 22:21 EDT START DATE/TIME: 02/27/2021 22:21 EDT FREE TEXT SOURCE: FINAL REPORTS Final Report [] Verified Date/Time/Personnel: 03/01/2021 10:40 EDT GBS NEGATIVE. Group B Streptococcus DNA not detected by Real-Time. Polymerase Chain Reaction (PCR). A negative result does not rule out the possibility of Group B Streptococcus False negative results may occur when Group B Streptococcus concentration is below the level of detection of 200 CFU/mL of sample preparation reagent. If the patient has signs or symptoms of infection, other laboratory tests and clinical information should be used to confirm the negative result. This test is not intended to differentiate carriers of Group B Streptococcus from those with Streptococcus disease. Performing Locations *1: This test was performed at: [facility], [address] [place] [address], [id number] , [facility] ([place]) documented in this encounter [facility] Work Phone: Evaluation note* Diagnosis with inconclusive viability, single or unspecified fetus- Primary History of anomaly in prior , currently [facility] Diagnosis Supervision of high risk in first trimester- Primary History of anomaly in prior , currently History of delivery 8 weeks gestation of [facility]* Diagnosis Nausea and vomiting in - Primary Unspecified vomiting of , unspecified as to episode of care Anxiety during Depression during in first trimester Supervision of high risk in first trimester History of anomaly in prior , currently History of delivery 10 weeks gestation of [facility]* Diagnosis with care elsewhere, antepartum- Primary with history of section, antepartum History of anomaly in prior , currently with other poor obstetric history Kidney cyst, acquired Acquired cyst of kidney History of depression Personal history of other mental disorder Supervision of high risk in second trimester Unspecified high-risk [facility]* Diagnosis Encounter for supervision of normal in multigravida- Primary 13 weeks gestation of state, incidental with history of section, antepartum History of anomaly in prior , currently with other poor obstetric history History of delivery [facility]* Diagnosis History of anomaly in prior , currently - Primary with other poor obstetric history 17 weeks gestation of state, incidental [facility]* Diagnosis with inconclusive viability, not applicable or unspecified- Primary [facility]* Diagnosis Previous delivery in second trimester, antepartum- Primary 22 weeks gestation of state, incidental [facility]* Diagnosis Encounter for supervision of other normal , first trimester- Primary 10 weeks gestation of Supervision of high risk in first trimester [facility]* Diagnosis 26 weeks gestation of - Primary state, incidental Supervision of high risk in second trimester Unspecified high-risk History of anomaly in prior , currently with other poor obstetric history with history of section, antepartum History of depression Personal history of other mental disorder documented in this encounter [facility] note* Diagnosis Supervision of high risk in third trimester- Primary Unspecified high-risk 30 weeks gestation of state, incidental with history of section, antepartum documented in this encounter [facility] note* Diagnosis 38 weeks gestation of - Primary state, incidental History of section Other postprocedural status documented in this encounter [facility] note* Diagnosis Suspected problem with growth not found- Primary 39 weeks gestation of state, incidental documented in this encounter [facility] note* Diagnosis with history of section, antepartum- Primary Supervision of high risk in third trimester Unspecified high-risk 39 weeks gestation of state, incidental documented in this encounter [facility] Discharge instructions* Instructions* Jill Multani DO - 03/29/2021 Follow up appointment with your doctor/cash processor - Keep next scheduled appointment Activity - Normal Activity Call your doctor/cash processor if you have: - leaking fluid - vaginal bleeding - regular contractions: Every 5 minutes or closer for one hour - decreased movement - worsening abdominal (belly) pain - headache, blurry vision, increased swelling, upper abdominal pain If you are going home with contractions that are uncomfortable/painful- we recommend these coping strategies: rhythmic breathing, hydrotherapy, imagery or visualization, gentle massage, walking and changing your position. Treatment Verification: Mauro Ba was assessed on Labor and Delivery for a related visit on 03/29/21. 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: Maternal & Medicine Diagnoses History of anomaly in prior , currently Procedures MI OFFICE/OUTPATIENT NEW HIGH MDM 60-74 MINUTES Yonatan Sparks APRN - SENIOR [employer] NETWORK ENGINEER [address] [place] [address] [address] [place] [address] [place] [address] Referral ID Status Reason Start Date Expiration Date Visits Requested Visits Authorized [id number] Pending Review Specialty Services Required 02/27/2023 02/27/2024 1 1 [facility] Summary Purpose Family History No Family History Records FoundNo Family History Records FoundNo Family History Records FoundNo Family History Records FoundNo Family History Records FoundNo Family History Records FoundNo Family History Records Found Advance Directives No Advanced Directives Records FoundDocuments on File Type Date Recorded Patient [employer] Expl anation Advance Directives and Living Will Power of Laundry Tub Maker Documents on File Type Date Recorded Patient [employer] Expl anation ACP-Advance Directive ACP-Power of Laundry Tub Maker Latest Code Status on File Code Status Date Activated Date Inactivated Comments Full Code 04/11/2021 3:12 PM Full Code 04/11/2021 10:10 AM 04/11/2021 3:12 PM Full Code 04/11/2021 12:48 AM 04/11/2021 10:10 AM Reason for Referral Specialty Diagnoses / Procedures Referred By Contac t Referred To Contact Yonatan Sparks APRN - CNP [address] [place] [address] [address] [place] [address] Referral ID Status Reason Start Date Expiration Date V isits Requested Visits Authorized [id number] Pending Review 1 1 Specialty Diagnoses / Procedures Referred By Contac t Referred To Contact Diagnoses 13 weeks gestation of with history of section, antepartum History of anomaly in prior , currently History of delivery Procedures CONSULT TO MATERNAL MEDI OFFICE/OUTPATIENT NEW HIGH MDM 60-74 MINUTES Sharon Mccormick APRN.CNM [address] [place] [address] Referral ID Status Reason Start Date Expiration Date Visits Requested Visits Authorized [id number] Authorized PCP Requested Referral Auto-Generate d Referral 04/30/2023 04/29/2024 1 1 Specialty Diagnoses / Procedures Referred By Contac t Referred To Contact [facility] Diagnoses Encounter for supervision of normal in multigravida Procedures OBSTETRIC ULTRASOUND WHI US PREG UTERUS AFTER 1ST TRIMEST GESTATION Sharon Mccormick APRN.CN [address] [place] [address] [facility] [address] [place] [address] Referral ID Status Reason Start Date Expiration Date Visits Requested Visits Authorized [id number] Pending Review Auto-Generat ed Referral 04/30/2023 04/29/2024 1 1 Health Concerns Problem Noted Date Diagnosed Date [facility] Education - [facility] 04/30/2023 Education - [place] 04/30/2023 Problem Noted Date Diagnosed Date [facility] - [facility] 04/30/2023 Education - [place] 04/30/2023 Problem Noted Date Diagnosed Date [facility] - [facility] 04/30/2023 Education - [place] 04/30/2023 Problem Noted Date Diagnosed Date [facility] - [facility] 04/30/2023 Education - [place] 04/30/2023 Problem Noted Date Diagnosed Date [facility] - [facility] 04/30/2023 Education - [place] 04/30/2023 Problem Noted Date Diagnosed Date [facility] - [facility] 04/30/2023 Education - [place] 04/30/2023 Problem Noted Date Diagnosed Date [facility] Education - [facility] 04/30/2023 Education - [place] 04/30/2023 Problem Noted Date Diagnosed Date [facility] - [facility] 04/30/2023 Education - [place] 04/30/2023 Problem Noted Date Diagnosed Date [facility] - [facility] 04/30/2023 Education - [place] 04/30/2023 Problem Noted Date Diagnosed Date [facility] - [facility] 04/30/2023 Education - [place] 04/30/2023 Problem Noted Date Diagnosed Date [facility] Education - [facility] 04/30/2023 Education - [place] 04/30/2023 Additional Source Comments INFORMATION SOURCE (unrecogn ized section and content) DATE CREATED AUTHOR AUTHOR'S ORGANIZ ATION 06/10/2020 [employer] [facility] ([place]) DATE CREATED AUTHOR AUTHOR'S ORGANIZ ATION 03/05/2021 [facility] ([place]) DATE CREATED AUTHOR AUTHOR'S ORGANIZ ATION 05/07/2021 [facility] DATE CREATED AUTHOR AUTHOR'S ORGANIZ ATION 08/09/2021 [facility] DATE CREATED AUTHOR AUTHOR'S ORGANIZ ATION 05/06/2023 [facility] DATE CREATED AUTHOR AUTHOR'S ORGANIZ ATION 10/31/2023 [facility] Reason for Visit (unrecogniz ed section and content) Reason Comments Contractions Reason Comments Amenorrhea LMP 01/25/2023. +Home test. 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 Reason Onset Date Comments Care 05/28/2023 Reason Onset Date Comments medical records 06/09/2023 Reason Comments US Specialty Diagnoses / Procedures Referred By Contac t Referred To Contact [facility] Diagnoses 19 weeks gestation of Previous delivery in second trimester, antepartum Procedures OBSTETRIC ULTRASOUND WHI US PREG UTERUS AFTER 1ST TRIMEST GESTATION Fanny Reynolds MD [address] [place] [address] [facility] [address] [place] [address] Referral ID Status Reason Start Date Expiration Date V isits Requested Visits Authorized [id number] Closed Auto-Generate d Referral 06/10/2023 06/09/2024 1 1 Reason Onset Date Comments Care 07/29/2023 Reason Comments PRAF Reason Onset Date Comments Care 08/28/2023 Reason Onset Date Comments Care 10/20/2023 Reason Onset Date Comments Care 10/29/2023 Ordered Prescriptions (unrec ognized section and content) Scheduled Active and Recently Administ ered Medications (unrecognized section and content) Continuous Medication Order 04/11/2021 04/12/2021 04/13/2021 lactated ringers infusion (CANCELED) Intravenous, at 125 mL/hr, CONTINUOUS, Starting on Fri04/11/21 at 1030, Labor and Delivery (Signed and Held) 1030 (New Bag - Provider: Carolyn Puente RN) lactated ringers infusion (CANCELED) Intravenous, at 125 mL/hr, CONTINUOUS, Starting on Fri04/11/21 at 0115 0152 (New Bag - Provider: Nohemy Julio RN) PRN Medication Order 04/11/2021 04/12/2021 04/13/2021 0.9 % sodium chloride infusion 25 mL, Intravenous, at 100 mL/hr, PRN, If patient receiving piggyback infusions without ordered maintenance IV fluids or with frequent/long duration piggyback infusions, Starting on Fri04/11/21 at 1512, Administer at the same rate as the piggyback being infused., acetaminophen (TYLENOL) tablet 650 mg 650 mg, Oral, EVERY 6 HOURS PRN, Pain Mild (1-3), Starting on Fri04/11/21 at 1512, Maximum dose of acetaminophen is 4000 mg from all sources in 24 hours., 0034 (Given - Provider: Codie Castro RN)0635 (Given - Provider: Codie Castro RN)1240 (Given - Provider: Mikaela Cruz RN)1846 (Given - Provider: Mikaela Cruz RN) 0048 (Given - Provider: Codie Castro RN)0651 (Given - Provider: Codie Castro RN) acetaminophen (TYLENOL) tablet 650 mg (CANCELED) 650 mg, Oral, EVERY 4 HOURS PRN, Pain Mild (1-3), Fever, Fever >100.5 (38 C), Starting on Fri04/11/21 at 0044, Do not use if NPO. 0659 (Given - Provider: Britany Cee RN) diphenhydrAMINE (BENADRYL) injection 25 mg 25 mg, Intravenous, EVERY 6 HOURS PRN, Itching, Hives, Starting on Fri04/11/21 at 1512, docusate sodium (COLACE) capsule 100 mg 100 mg, Oral, 2 TIMES DAILY PRN, Constipation, Starting on Fri04/11/21 at 1512, Do not crush or break., 1052 (Given - Provider: Mikaela Cruz RN)2333 (Given - Provider: Codie Castro RN) HYDROmorphone (DILAUDID) injection 0.25 mg(Linked Group 1) 0.25 mg, Intravenous, EVERY 3 HOURS PRN, Pain Moderate (4-6), Starting on Fri04/11/21 at 2345, If oral and IV narcotics ordered, use oral first and only use IV if oral is ineffective or cannot take oral. Do Not give oral and IV within 1 hour of each other unless specifically ordered., HYDROmorphone (DILAUDID) injection 0.5 mg(Linked Group 1) 0.5 mg, Intravenous, EVERY 3 HOURS PRN, Pain Severe (7-10), Starting on Fri04/11/21 at 2345, If oral and IV narcotics ordered, use oral first and only use IV if oral is ineffective or cannot take oral. Do Not give oral and IV within 1 hour of each other unless specifically ordered., lansinoh lanolin ointment Topical, EVERY 1 HOUR PRN, Dry Skin, nipple discomfort, Starting on Fri04/11/21 at 1512, nalbuphine (NUBAIN) injection 5 mg 5 mg, Intravenous, EVERY 4 HOURS PRN, Other, Itching not relieved by benadryl, Starting on Fri04/11/21 at 1512, Do not administer to patients with current narcotic addiction., naloxone (NARCAN) injection 0.4 mg 0.4 mg, Intravenous, PRN, Opioid Reversal, Starting on Fri04/11/21 at 1512, PRN if respiratory rate is < 6/min or patient is difficult to arouse. Mix 9 mL of sodium chloride 0.9% with 0.4 mg (1 mL) of naloxone (NARCAN) in 10 mL syringe. (Note: dilution is 0.04 mg/mL) Give 0.08 mg (2 mL of special dilution), slow IV push, repeat up to 0.4 mg (10 mL) or until patient is responsive to physical stimulation and is able to take deep breaths. Continue to observe, if no response within 3 minutes of administration of 0.4 mg (10 mL) total, repeat dose (0.4 mg as administered previously) and notify physician STAT., ondansetron (ZOFRAN) injection 4 mg 4 mg, Intravenous, EVERY 6 HOURS PRN, Nausea, Starting on Fri04/11/21 at 1512, oxyCODONE (ROXICODONE) immediate release tablet 10 mg(Linked Group 2) 10 mg, Oral, EVERY 4 HOURS PRN, Pain Severe (7-10), Starting on Joan 04/12/21 at 0630, 0650 (Given - Provider: Codie Castro RN)1051 (Given - Provider: Mikaela Cruz RN)1517 (Given - Provider: Mikaela Cruz, NANCY)1929 (Given - Provider: Mikaela Cruz RN)2333 (Given - Provider: Codie Castro RN) 0346 (Given - Provider: Codie Castro, NANCY)0809 (Given - Provider: Arti Costa, RN) oxyCODONE (ROXICODONE) immediate release tablet 5 mg(Linked Group 2) 5 mg, Oral, EVERY 4 HOURS PRN, Pain Moderate (4-6), Starting on Joan 04/12/21 at 0630, 0650 (See Alternative - Provider: Codie Castro RN)1051 (See Alternative - Provider: Mikaela Cruz RN)1517 (See Alternative - Provider: Mikaela Cruz RN)1929 (See Alternative - Provider: Mikaela Cruz RN)2333 (See Alternative - Provider: Codie Castro RN) 0346 (See Alternative - Provider: Codie Castro RN)0809 (See Alternative - Provider: Arti Costa, RN) oxytocin (PITOCIN) 10 unit bolus from the bag (CANCELED) 500 mL (30 Units), Intravenous, Administer over 75 Minutes, PRN, Bleeding, Starting on Fri04/11/21 at 1010, For 1 dose, For immediate post- use ONLY after delivery of baby/ excessive bleeding/ uterine atony. Bag 1 of 2: Bolus for bag to infuse at 999 ml/hour for 15 minutes (15 units in 250ml). After initial bolus then decrease rate to 250cc/hr (additional 15 units) for 1 hour. Then discontinue, Multiphase Phase of Care 1105 (Given - Provider: Carolyn Puente RN)1220 (Due: Stopped - Provider: Carolyn Puente RN) oxytoxin (PITOCIN) 30 units in 500 mL infusion (CANCELED) 125 eileen-units/min (125 mL/hr), Intravenous, at 125 mL/hr, CONTINUOUS PRN, Bleeding, Starting on Fri04/11/21 at 1010, For 4 hours, Post- use ONLY after delivery of baby/ excessive bleeding/ uterine atony. Given after delivery of placenta AND the initial 30 unit bolus. Bag 2 of 2. 125 cc/hr (125 mu/min) for an additional infusion of 500cc (30 units), Multiphase Phase of Care 1205 (New Bag - Provider: Carolyn Puente, RN) simethicone (MYLICON) chewable tablet 80 mg 80 mg, Oral, EVERY 6 HOURS PRN, Cramping, Flatulence, Starting on Fri04/11/21 at 1512, 1711 (Given - Provider: Mikaela Cruz RN) sodium chloride flush 0.9 % injection 10 mL 10 mL, Intravenous, PRN, Line Care, Starting on Fri04/11/21 at 1512, After every IV line use, Linked Groups Order Group 1: HYDROmorphone (DILAUDID) injection 0.25 mgJump to med 0.25 mg, Intravenous, EVERY 3 HOURS PRN, Pain Moderate (4-6), Starting on Fri04/11/21 at 2345
If oral and IV narcotics ordered, use oral first and only use IV if oral is ineffective or cannot take oral. Do Not give oral and IV within 1 hour of each other unless specifically ordered.
Or HYDROmorphone (DILAUDID) injection 0.5 mgJump to med 0.5 mg, Intravenous, EVERY 3 HOURS PRN, Pain Severe (7-10), Starting on Fri04/11/21 at 2345
If oral and IV narcotics ordered, use oral first and only use IV if oral is ineffective or cannot take oral. Do Not give oral and IV within 1 hour of each other unless specifically ordered.
Group 2: oxyCODONE (ROXICODONE) immediate release tablet 5 mgJump to med 5 mg, Oral, EVERY 4 HOURS PRN, Pain Moderate (4-6), Starting on Fri04/12/21 at 0630, Or oxyCODONE (ROXICODONE) immediate release tablet 10 mgJump to med 10 mg, Oral, EVERY 4 HOURS PRN, Pain Severe (7-10), Starting on Joan 04/12/21 at 0630, Care Teams (unrecognized sec tion and content) Md Urologist Relationship Specialty Start Date End Date [facility] [address] [place] [address] PCP - General 02/27/23 Md Urologist Relationship Specialty Start Date End Date [facility] [address] [place] [address] PCP - General 02/27/23 Md Urologist Relationship Specialty Start Date End Date [facility] [address] [place] [address] PCP - General 02/27/23 Md Urologist Relationship Specialty Start Date End Date [facility] [address] [place] [address] PCP - General 02/27/23 Md Urologist Relationship Specialty Start Date End Date [facility] [address] [place] [address] PCP - General 02/27/23 Md Urologist Relationship Specialty Start Date End Date [facility] [address] [place] [address] PCP - General 02/27/23 Md Urologist Relationship Specialty Start Date End Date [facility] [address] [place] [address] PCP - General 02/27/23 Source Comments (unrecognize d section and content) In the event this informatio n is protected by the Federal Confidentiality of Alcohol and Drug Abuse Patient Records regulations: The Federal rules restrict any use of the information to criminally investigate or prosecute any alcohol or drug abuse patient.[facility] the event this information is protected by the Federal Confidentiality of Alcohol and Drug Abuse Patient Records regulations: The Federal rules restrict any use of the information to criminally investigate or prosecute any alcohol or drug abuse patient.[facility] HospitalIn the event this information is protected by the Federal Confidentiality of Alcohol and Drug Abuse Patient Records regulations: The Federal rules restrict any use of the information to criminally investigate or prosecute any alcohol or drug abuse patient.[facility] the event this information is protected by the Federal Confidentiality of Alcohol and Drug Abuse Patient Records regulations: The Federal rules restrict any use of the information to criminally investigate or prosecute any alcohol or drug abuse patient.[facility] HospitalIn the event this information is protected by the Federal Confidentiality of Alcohol and Drug Abuse Patient Records regulations: The Federal rules restrict any use of the information to criminally investigate or prosecute any alcohol or drug abuse patient.[facility] HospitalIn the event this information is protected by the Federal Confidentiality of Alcohol and Drug Abuse Patient Records regulations: The Federal rules restrict any use of the information to criminally investigate or prosecute any alcohol or drug abuse patient.[facility] HospitalIn the event this information is protected by the Federal Confidentiality of Alcohol and Drug Abuse Patient Records regulations: The Federal rules restrict any use of the information to criminally investigate or prosecute any alcohol or drug abuse patient.[facility] HospitalIn the event this information is protected by the Federal Confidentiality of Alcohol and Drug Abuse Patient Records regulations: The Federal rules restrict any use of the information to criminally investigate or prosecute any alcohol or drug abuse patient.[facility] HospitalIn the event this information is protected by the Federal Confidentiality of Alcohol and Drug Abuse Patient Records regulations: The Federal rules restrict any use of the information to criminally investigate or prosecute any alcohol or drug abuse patient.[facility] HospitalIn the event this information is protected by the Federal Confidentiality of Alcohol and Drug Abuse Patient Records regulations: The Federal rules restrict any use of the information to criminally investigate or prosecute any alcohol or drug abuse patient.[facility] HospitalIn the event this information is protected by the Federal Confidentiality of Alcohol and Drug Abuse Patient Records regulations: The Federal rules restrict any use of the information to criminally investigate or prosecute any alcohol or drug abuse patient.[facility] HospitalIn the event this information is protected by the Federal Confidentiality of Alcohol and Drug Abuse Patient Records regulations: The Federal rules restrict any use of the information to criminally investigate or prosecute any alcohol or drug abuse patient.[facility] HospitalIn the event this information is protected by the Federal Confidentiality of Alcohol and Drug Abuse Patient Records regulations: The Federal rules restrict any use of the information to criminally investigate or prosecute any alcohol or drug abuse patient.[facility] HospitalIn the event this information is protected by the Federal Confidentiality of Alcohol and Drug Abuse Patient Records regulations: The Federal rules restrict any use of the information to criminally investigate or prosecute any alcohol or drug abuse patient.[facility] HospitalIn the event this information is protected by the Federal Confidentiality of Alcohol and Drug Abuse Patient Records regulations: The Federal rules restrict any use of the information to criminally investigate or prosecute any alcohol or drug abuse patient.[facility] HospitalIn the event this information is protected by the Federal Confidentiality of Alcohol and Drug Abuse Patient Records regulations: The Federal rules restrict any use of the information to criminally investigate or prosecute any alcohol or drug abuse patient.[facility] HospitalIn the event this information is protected by the Federal Confidentiality of Alcohol and Drug Abuse Patient Records regulations: The Federal rules restrict any use of the information to criminally investigate or prosecute any alcohol or drug abuse patient.[facility] FOR RECORDS PERTAINING TO PATIENTS WHO ARE OR HAVE BEEN ENROLLED IN A CHEMICAL DEPENDENCY/SUBSTANCEABUSE PROGRAM, SOME INFORMATION MAY BE OMITTED. This clinical summary was aggregated from multiple sources. Caution should be exercised in using it in the provision of clinical care. This summary normalizes information from multiple sources, and as a consequence, information in this document may materially change the coding, format and clinical context of patient data. In addition, data may be omitted in some cases. CLINICAL DECISIONS SHOULD BE BASED ON THE PRIMARY CLINICAL RECORDS. [employer] [facility]. provides no warranty or guarantee of the accuracy or completeness of information in this document.
[2023-10-31] MEDS: Lactated Ringers 1,000 ML 999 ML IV (10:20)
[2023-10-31 10:41] LABS: Absolute Lymphocyte Count 2.08 X10^3/uL (0.83-4.51); Absolute Neutrophil Count 7.1 X10^3/uL (2.0-7.7); Basophil# 0.06 X10^3/uL; Basophil% 0.6 % (0-1); Eosinophil# 0.09 X10^3/uL; Eosinophils% 0.9 % (0-5); Hematocrit 30.2 % (37-47); Hemoglobin 9.7 g/dL (12.0-15.0); Lymphocyte # 2.08 X10^3/ul (0.83-4.51); Lymphocyte % 20.6 % (19-41); Mean Corp Hgb Conc 32.1 g/dL (32-36); Mean Corpuscular Hgb 26.9 pg (27.0-32.0); Mean Corpuscular Volume 83.9 fL (81-99); Mean Platelet Vol. 10.8 fl (6.2-12.0); Monocyte# 0.65 X10^3/uL; Monocyte% 6.4 % (0-10); NRBC Flagged by Analyzer 0 % (0-5); Neutrophil # 7.14 X10^3/uL (2.7-7.7); Neutrophil % 70.6 % (47-70); Platelet Count 225 K/mm3 (150-450); RBC Distribution Width CV 13.3 % (11.6-14.6); RBC Distribution Width SD 40.7 fl (35.1-43.9); White Blood Count 10.1 K/mm3 (4.4-11.0)
[2023-10-31] MEDS: Lactated Ringers 1,000 ML 150 ML IV (11:00)
[2023-10-31 11:19] LABS: Syphilis Antibodies Non-reactive
[2023-10-31] MEDS: Acetaminophen 500 MG Tablet 1000 MG PO ×2 (11:52→18:33)
[2023-10-31] MEDS: Sodium Citrate/Citric Acid 30 ML UDC PO (11:54)
--- NOTE | 2023-10-31 12:55 | EX.PCM.OBRPT ---
Details Operative Information Date of Procedure: 10/31/23 Pre-Operative Diagnosis: 39.6 weeks, Previous CS Post-Operative Diagnosis: Same, live male Indications for : Repeat Elective Classification: Scheduled Procedure Type: low transverse supervisor press room #1: Francisco Martinez Type of Anesthesia: Spinal Antibiotic Given: Ancef 2 grams IV x1 Drain: Mayo to straight drain Estimated Blood Loss: 600 Fluids Replaced: 1000 Procedure Start Time: 12:24 Time of Delivery: 12:28 Findings Description of Procedure: After informed consent was obtained the patient was taken the operating room she was given spinal anesthesia. She was then placed in the supine position. She was prepped and draped in the normal sterile fashion. Anesthesia was found to be adequate. At this time a Pfannenstiel skin incision was made with a knife was carried down to the underlying layer of the fascia. The fascial incision was then extended laterally using curved Morel scissor. Attention was then turned to the superior aspect of the fascial edge was grasped with 2 straight [place] clamps tented up and the rectus muscle dissected off sharply using bovie. Rectus muscles were then in the midline bluntly and peritoneum was entered bluntly. Gentle opposing traction was placed. At this time the vesicouterine peritoneum was identified. Scalpel was used to make a uterine incision in a low transverse fashion. The uterus was then entered bluntly gentle opposing traction was placed to extend this incision. Membranes were ruptured clear. Infant's head was brought to the uterine incision was delivered atraumaticall, loose nuchal x 1 reduced. Delayed cord clamping performed. Cord was clamped and cut was handed to the waiting nursery team. The Placenta was removed from the uterus. The uterus was then removed from the abdominal cavity. the uterus was cleared of all clots and debris using a lap. At this time the uterine incision was reapproximated using #1 Vicryl in a running locked fashion. Hemostasis was appreciated. thin midline lower uterine segment required multiple 1-0 sutures to reinforce. Posterior cul-de-sac was then cleared of all clots and debris. Uterus was placed back in the abdominal cavity. Gutters were cleared of all clots and debris. Uterine incision was reevaluated and noted to be of excellent hemostasis. At this time the peritoneum was grasped with Kellys reapproximated using #2 Vicryl suture in a running fashion. Fascia was then reapproximated using #1 Vicryl in a running fashion. Subcu layer was irrigated with NS then reapproximated with #2 0 plain gut suture in an interrupted fashion. Subcu layer was closed using 4-0 Monocryl in a subcu fashion. Dry sterile dressing was applied. Instrument lap needle count correct ?2. Anticipated normal postoperative course. Presentation: Positive for Vertex Amniotic Membrane Rupture Type: Artificial Amniotic Fluid Description: Clear Placental Delivery Description: Manual Removal Placenta Disposition: [facility] Cord Vessel Description: 3 Vessels Cord Entanglement: Around neck x 1, loose Nuchal Cord Compression: Without compression A Gender: Male (1 minute): 8 (5 minute): 9 Delayed Cord Clamping: Yes Complications Risks of Surgery Discussed w/Patient: Bleeding, Anesthesia Risks, Infection, Need for Future C-Sections and Injury to surrounding structure(s) including bowel and bladder Complications: none
[2023-10-31] MEDS: Oxytocin 15 Units/NS 250ml 15 UNITS/250 ML IV.SOLN 83 UNITS IV (13:25)
[2023-10-31] MEDS: Ketorolac 30 MG/ML Syringe IV ×2 (14:44→19:27)
[2023-10-31] MEDS: Lactated Ringers 1,000 ML 100 ML IV (16:40)
[2023-11-01] MEDS: Acetaminophen 500 MG Tablet 1000 MG PO ×4 (00:01→18:28)
[2023-11-01 00:19] VITALS: BP 117/83; PULSE 83; RESP 16; TEMP 36.6; O2SAT 98
[2023-11-01] MEDS: 0.9% Saline Lock 10 ML Syringe IV ×2 (00:56→08:08)
[2023-11-01] MEDS: Ketorolac 30 MG/ML Syringe IV ×2 (00:56→08:08)
[2023-11-01 03:30] VITALS: BP 117/81; PULSE 83; RESP 18; TEMP 36.5; O2SAT 96
[2023-11-01 06:43] LABS: Hemoglobin 9.1 g/dL (12.0-15.0); Mean Corp Hgb Conc 32.5 g/dL (32-36); Mean Corpuscular Hgb 27.2 pg (27.0-32.0); Mean Corpuscular Volume 83.6 fL (81-99); Mean Platelet Vol. 10.8 fl (6.2-12.0); Platelet Count 195 K/mm3 (150-450); RBC Distribution Width CV 13.4 % (11.6-14.6); RBC Distribution Width SD 40.5 fl (35.1-43.9); Red Blood Count 3.35 M/mm3 (4.2-5.4); White Blood Count 13.8 K/mm3 (4.4-11.0)
[2023-11-01 07:45] VITALS: BP 115/76; PULSE 86; RESP 18; TEMP 36.3; O2SAT 98
--- NOTE | 2023-11-01 07:59 | PCM.DC.SUM ---
Providers Date of Admission: 10/31/23 Primary Care Physician: No Primary Care Phys Reason For Visit: REPEAT Diagnosis Discharge Diagnosis (1) Delivery by section: Status: Acute (2) Previous , delivered, current hospitalization: Status: Acute Code(s): O34.219 - Maternal care for unspecified type scar from previous delivery (3) Acute on chronic blood loss anemia: Status: Chronic Code(s): D62 - Acute posthemorrhagic anemia Plan POD#1 , Doing well Routine care pain mgmt monitor VS ambulation dc home Medications at Discharge Home Medications pantoprazole 20 mg tablet,delayed release mg PO heartburn 10/31/23 acetaminophen 500 mg tablet 1,000 mg (2 x 500 mg) PO Q6 #0 tabs 11/01/23 ferrous sulfate 325 mg (65 mg iron) tablet (FeroSul) 325 mg PO DAILY@1200 #0 tabs 11/01/23 ibuprofen 600 mg tablet 600 mg PO Q6H #0 tabs 11/01/23 simethicone 80 mg chewable tablet 80 mg PO PCHS PRN Indigestion/stomach pain #0 tabs 11/01/23 Hospital Course Operations section Summary of Care Provided Minutes Spent on Discharge: 15 Hospital Course: admitted for scheduled repeat cs - discharged home on POD#1 after undergoing a LTCS- in stable condition. Physical Exam Narrative Fundus firm. Dressing dry and intact. Const alert and oriented x3 General Appearance: cooperative HEENT normocephalic Neck General: normal visual inspection GI soft to palpation and non-distended GI Narrative: Fundus firm Extremity normal to inspection and no calf tenderness Skin no rashes or lesions noted Neuro oriented x3 and CN's II-XII intact bilaterally Psych mental status grossly normal Weight / BMI Weight Weight: 83.5 kg Body Mass Index (BMI) 28.0 ABG / Lab / Microbiology Data 11/01/23 06:35 Laboratory: Laboratory Results - last 24 hr 10/31/23 10:20: WBC 10.1, RBC 3.60 L, Hgb 9.7 L, Hct 30.2 L, MCV 83.9, MCH 26.9 L, MCHC 32.1, RDW Std Deviation 40.7, RDW Coeff of Priscila 13.3, Plt Count 225, MPV 10.8, Immature Gran % (Auto) 0.900, Neut % (Auto) 70.6 H, Lymph % (Auto) 20.6, Turner % (Auto) 6.4, Eos % (Auto) 0.9, Baso % (Auto) 0.6, Absolute Neuts (auto) 7.1, Absolute Lymphs (auto) 2.08, Nucleated RBC % 0, Syphilis Total Ab Non-reactive, Blood Type O POSITIVE, Antibody Screen NEGATIVE 11/01/23 06:35: WBC 13.8 H, RBC 3.35 L, Hgb 9.1 L, Hct 28.0 L, MCV 83.6, MCH 27.2, MCHC 32.5, RDW Std Deviation 40.5, RDW Coeff of Priscila 13.4, Plt Count 195, MPV 10.8 D/C Instructions Discharge Diet: No restrictions May resume sexual activity in: 6-8 weeks Lifting Restrictions: 25 Call your doctor if your incision/area has: Continuous Slow Oozing, Sudden Increased Bleeding, Increased Pain/ Swelling, Increased Redness, Foul Smelling Discharge and Swelling at the incision site Call your doctor if you observe: Fever of 101 or Higher, Inability to urinate, Using more than 1 pad per hour and Uncontrolled pain Additional Dressing/Incision Instructions: remove dressing at 7 days post op- if it becomes saturated prior to that time you may remove it. Let soap and water run over incision sites and dab dry. keep incision clean and dry. Please Follow Up With: Karishma Mina MD When: 1-2 weeks post of incision check and again at 6 weeks post . [phone] Meaningful Use Info Meaningful Use Diagnoses (Choose all that apply): None applicable Discharge Plan Admission Admit Date/Time: 10/31/23 09:30 Attending Provider: Karishma Mina Primary Care Provider: Care Physician,No Primary Discharge Orders/Prescriptions Prescriptions: New acetaminophen 500 mg Tablet 1,000 mg PO Q6 Qty: 0 0RF ibuprofen 600 mg Tablet 600 mg PO Q6H Qty: 0 0RF simethicone 80 mg Tablet,Chewable 80 mg PO PCHS PRN (Reason: Indigestion/stomach pain) Qty: 0 0RF ferrous sulfate [FeroSul] 325 mg (65 mg iron) Tablet 325 mg PO DAILY@1200 Qty: 0 0RF Continued pantoprazole 20 mg tablet,delayed release (DR/EC) PO Patient Comments: take 1 tablet by mouth once daily Referrals / Follow Up: Care Physician,No Primary [Primary Care Provider] - Disposition Disposition (needs filled in before D/C Order can be placed): Home, Self Care
--- NOTE | 2023-11-01 08:51 | CASEMGMT ---
Addendum entered by Mercedes Sutherland 11/01/23 09:42: Social Work MOB and FOB have all needed supplies for baby including diapers, wipes, clothing, car seat, crib, bottles and formula. RAFFI Nettles Original Note: Social Work Labor and Delivery Unit Date/Time of referral: 10/31/23, 23:30 Referred by: Dr. Karishma Horta Date/Time of intervention: 11/01/23 Reason for referral: anxious History obtained from: Medical record, MOB, FOB Guardian Status: MOB and FOB guardians of baby Household composition: MOB, FOB, daughter Robel(2.5) and now baby Musa MOB and FOB have been together for 4 years Medical history: MOB, history of anxiety and depression, fibrocystic breast, hx anomaly, anemia Baby: Born 10/31/23, 12:28ppm, 3450 g, Apgars 8 and 9 at one and five minutes. Educational Status: MOB and FOB both completed high school Financial Status: No concerns. MOB stays home w/children. FOB works for [employer] Childcare/Caregivers: MOB, FOB, MOB's parents. They are watching Robel at present Transportation: They have two vehicles Programs/Agencies involved: None Children's services/Legals issues: None Behavioral Health Issues: Substance abuse: No history for MOB or FOB, no tox screens completed. Mental Health: No history for FOB. MOB states that 3 years ago she did go see a counselor and tried medication, but did not feel the medication helped. She thought she had depression and anxiety but after going to counseling realized she did not. She did have some anxiety after her daughter was born due to her being in the NICU for 5 weeks and needing two surgeries. MOB states she thinks this was an appropriate response, SW supported MOB in this. MOB and FOB both report that this time things have been so much better and easy. Family/Social Stressors: None Support Systems: MOB's parents Depression/Anxiety/Shaken Baby/Safe Sleeping/Mental Health resources/Help Me Grow/mental health hotline: SW gave MOB all of the resources and reviewed w/MOB and FOB, in particular information on PPD and the symptoms. SW suggested to MOB if having symptoms, to speak w/her physician regarding it as sometimes medication can help and there are many different medications that can be utilized. Pt states understanding. Assessment: MOB and FOB both open w/SW, though initially MOB not certain why SW seeing her as anxiety and depression was three years ago and not fully diagnosed. MOB and FOB both held baby while SW in room and appropriate in care of baby. Plan: Baby home w/FOB and MOB at discharge. No further social service needs requested or indicated at this time. RAFFI Nettles
[2023-11-01] MEDS: Senna/Docusate Sodium 1 Tablet PO (12:16)
[2023-11-01] MEDS: Ferrous Sulfate 325 MG Tablet PO (12:17)
[2023-11-01] MEDS: Influenza Virus Vac Quad 23-24 60 MCG/0.5 ML SYRINGE IM (12:17)
[2023-11-01 12:22] VITALS: BP 121/83; PULSE 86; RESP 16; TEMP 36.4; O2SAT 96
[2023-11-01] MEDS: Ibuprofen 600 MG Tablet PO (13:49)
[2023-11-01 17:28] VITALS: BP 116/76; PULSE 97; RESP 18; TEMP 36.3; O2SAT 97
== END 2023-11-01 18:45 | disposition home or self-care (01) | DRG 540 ==
PROVIDERS: Admitting Provider Obstetrics & Gynecology; Referring Provider Obstetrics & Gynecology; Visit Provider Obstetrics & Gynecology
PROC: 10D00Z1 Extraction of Products of Conception, Low, Open Approach (ICD-10-PCS; CPT 59514; principal; 2023-10-31 11:45)
DX: O34.219 Maternal care for unspecified type scar from previous cesarean delivery (principal); O69.81X0 Labor and delivery complicated by cord around neck, without compression, not applicable or unspecified; Z37.0 Single live birth; Z3A.39 39 weeks gestation of pregnancy; Z87.891 Personal history of nicotine dependence
CPT/HCPCS: 59025; 59050; 85025; 85027; 86780; 86850; 86900; 86901; 99221; J7120; 90686; A4216; G0378; J2405